=== PATIENT | female | born 1955 | race Caucasian/White ===

== ENCOUNTER → 2017-09-17 14:27 | Outpatient (CLI) | payer MEDICAID, SELFPAY ==
--- NOTE | 2017-09-17 14:31 | CT_ITS ---
CT Soft Tissue Neck W/O Contrast INDICATION: PATIENT HAS TROUBLE SPEAKING, HOARSENESS, FEELS A CHOKING SENSATION SINCE JUNE. DUE TO ALLERGY NO IV CONTRAST WAS USED COMPARISON: None TECHNIQUE: Axial CT imaging of the soft tissues of the neck without contrast. Coronal and sagittal reformatted images. Radiation dose optimization technique applied. FINDINGS: Contrast was not given due to patient's contrast allergy. The study is limited due to the lack of IV contrast. There is evidence of retropharyngeal location of the common carotid arteries and bifurcations, and mild arteriosclerotic plaque is noted at the left carotid bifurcation. The epiglottis, aryepiglottic folds and vocal cords appear normal and symmetric. The parapharyngeal fat is clear. There is no evidence of bulky lymphadenopathy. Parotid glands and submandibular glands are normal and symmetric. Thyroid gland is normal in size. A 5 mm cystic nodule is seen in the left lobe of the thyroid. Mild centrilobular emphysematous changes are noted at the lung apices with small bullae on the right. There is mild mucosal thickening in the maxillary sinuses, the paranasal sinuses and mastoid air cells are otherwise clear. The orbital contents are normal and symmetric. CT/Soft Tissue Neck without Contr IMPRESSION: Limited study due to the lack of contrast. No evidence of abnormal mass or cervical cervical lymphadenopathy. Retropharyngeal course of the common carotid arteries and carotid bifurcations, normal variation. Mild maxillary sinus disease. at 0056 Reported and signed by: Ceci Stack MD Electronically Signed: Ceci Stack MD at 23:54 EST Tel , Service support ,
== END ==
PROVIDERS: Family Provider Internal Medicine; PCP Internal Medicine; Visit Provider Otolaryngology
DX: R49.0 Dysphonia (principal)
CPT/HCPCS: 70490

== ENCOUNTER → 2017-11-16 07:55 | Outpatient (CLI) | payer MEDICAID, SELFPAY | PROVIDERS: Family Provider Internal Medicine; PCP Internal Medicine; Visit Provider Otolaryngology | DX: Z01.818 Encounter for other preprocedural examination (principal) ==

== ENCOUNTER → 2018-08-20 09:40 | Outpatient (CLI) | payer MEDICARE, SELFPAY ==
--- NOTE | 2018-08-20 09:49 | CT_ITS ---
STUDY: CT RIGHT SHOULDER REASON FOR EXAM: Female, 63 years old. Right shoulder strain and pain. RADIATION DOSAGE (If Supplied By Facility): CTDIvol = ( 24.37 ) mGy, DLP = ( 403.54 ) mGycm TECHNIQUE: The patient was scanned in a multi detector CT scanner. High resolution transaxial imaging was performed with the administration of intra-articular contrast material. Sagittal and coronal images were reconstructed. Individualized dose optimization techniques were used for this CT. COMPARISON: Comparison is made with prior shoulder arthrogram done earlier in the day. FINDINGS: There is moderate osteoarthritis, with moderate articular joint space narrowing and moderate osteoarthritic spurring. Normal glenoid rim, neck and visualized scapula. Normal humeral head, neck and tuberosities. Normal coracoid process. Normal visualized lateral clavicle. Normal acromioclavicular articulation. There is a Type II morphology (curved), with a neutral orientation. Normal visualized muscles and soft tissue structures. CT/Extremity Upper WITH Contrast IMPRESSION: Moderate degree of osteoarthritis of the glenohumeral joint. Electronically Signed: Kahlil Potter MD at 10:34 EST , Service support ,
--- NOTE | 2018-08-20 10:00 | RAD_ITS ---
CLINICAL HISTORY: Female, 63 years old. Chronic right shoulder pain. PROCEDURE: ARTHROGRAM - RIGHT SHOULDER. CONSENT: The procedure as well as the benefits and possible complications including infection and bleeding were explained to the patient. Informed consent was obtained. FLUOROSCOPY TIME (if supplied): (0:30) minutes/seconds. 4 images were obtained. Injection Information: 10 cc of dilute MRI contrast. Number of images obtained: 4 TECHNIQUE: (All elements of maximal sterile barrier technique followed, including US elements as applicable) The patient was in the supine position. The overlying skin was prepped and draped in the usual sterile fashion. Following local anesthetic application and under direct fluoroscopic guidance, a 22-gauge spinal needle was placed into the shoulder joint. 2 cc of [id number]-300 was injected for confirmation. Following this, 10 cc of dilute MRI contrast was injected. The patient tolerated the procedure well. A CT scan will follow. RAD/Arthrogram Shoulder IMPRESSION: Successful right shoulder arthrogram for CT imaging. Electronically Signed: Kahlil Potter MD at 11:55 EST , Service support ,
== END ==
PROVIDERS: Family Provider Family Medicine; PCP Family Medicine; Referring Provider Specialist; Visit Provider Specialist
DX: S46.011A Strain of muscle(s) and tendon(s) of the rotator cuff of right shoulder, initial encounter (principal); X58.XXXA Exposure to other specified factors, initial encounter; Y93.9 Activity, unspecified; Y92.9 Unspecified place or not applicable; Y99.9 Unspecified external cause status
CPT/HCPCS: 23350; 73040; 73201; A9577; Q9967

== ENCOUNTER 2019-02-07 10:10 | Observation (INO) | payer MEDICARE, MEDICAID, SELFPAY ==
[2019-02-07] VITALS (9 sets, daily range): BP systolic 100–118; BP diastolic 60–97; PULSE 79–98; RESP 18–20; TEMP 36.5–37.2; O2SAT 91–97; BMI 33.0; BMI 36.2; BMI 36.3
--- NOTE | 2019-02-07 10:13 | CT_ITS ---
STUDY: CT BRAIN WITHOUT CONTRAST REASON FOR EXAM: Female, 63 years old. Increased confusion following a recent fall. RADIATION DOSAGE (If Supplied By Facility): CTDIvol = ( 44.96 ) mGy, DLP = ( 1502.65 ) mGycm TECHNIQUE: Transaxial CT imaging of the brain was performed without administration of intravenous contrast material. Individualized dose optimization techniques were used for this CT. COMPARISON: Comparison is made with prior study dated November 02, 2016. FINDINGS: Normal soft tissue structures. Normal calvarium. There is mild cerebral atrophy with widening of the extra-axial spaces and ventricular dilatation. There are areas of decreased attenuation within the white matter tracts of the supratentorial brain, consistent with microvascular disease changes. Normal basal ganglia and thalami. Normal brainstem. Normal cerebellum. There is no intracranial hemorrhage. There are no findings of an acute ischemic infarction. Air-fluid levels in both maxillary sinuses in keeping with acute sinusitis. CT/Brain/Head without Contrast IMPRESSION: Chronic involutional changes of the brain. Bilateral maxillary sinusitis. Electronically Signed: Kahlil Potter, at 12:21 EDT , Service support ,
--- NOTE | 2019-02-07 10:13 | EKG12_ITS ---
Test Reason : GENERAL ILLNESS Blood Pressure : / mmHG Vent. Rate : 094 BPM Atrial Rate : 094 BPM P-R Int : 168 ms QRS Dur : 154 ms QT Int : 400 ms P-R-T Axes : 035 222 026 degrees QTc Int : 500 ms Atrial-sensed ventricular-paced rhythm Abnormal ECG Confirmed by LIZ CAMPBELL, TAMI ([id number]), editorial assistant SANFORD RHODES ([id number]) on 02/09/2019 11:32:57 AM Referred By: Angy Roper Confirmed By:TAMI HILL MD
--- NOTE | 2019-02-07 10:16 | CT_ITS ---
STUDY: CT CERVICAL SPINE WITHOUT CONTRAST REASON FOR EXAM: Female, 63 years old. Increasing confusion following a fall. RADIATION DOSAGE (If Supplied By Facility): CTDIvol = ( 44.96 ) mGy, DLP = ( 1502.65 ) mGycm TECHNIQUE: High resolution transaxial imaging was performed without contrast material. Sagittal and coronal images were reconstructed. Individualized dose optimization techniques were used for this CT. COMPARISON: Comparison is made with prior study dated November 02, 2016. FINDINGS: Normal craniovertebral junction. Normal anterior atlantoaxial articulation. Normal odontoid process. Normal cervical lordosis. Normal vertebral bodies and posterior osseous elements. C2-3: Normal endplates. Normal disc height and morphology. Normal central canal and intervertebral neuroforamina. C3-4: Normal endplates. Normal disc height and morphology. Normal central canal and intervertebral neuroforamina. C4-5: Moderate degree of disc space narrowing with spondylosis. Uncovertebral arthrosis. Bilateral neural foraminal stenosis worse on the left side. C5-6: Mild degree of disc space narrowing. Uncovertebral arthrosis. No significant stenosis seen. C6-7: Moderate degree of disc space narrowing with spondylosis and uncovertebral arthrosis. Mild degree of bilateral neural foraminal stenosis. C7-T1: Normal endplates. Normal disc height and morphology. Normal central canal and intervertebral neuroforamina. Calcified plaque at the left carotid bifurcation. Bullous changes in the right lung apex. CT/Spine Cervical without Contras IMPRESSION: Multilevel degenerative changes, as described above. Electronically Signed: Kahlil Potter, at 12:33 EDT , Service support ,
--- NOTE | 2019-02-07 10:18 | ED.DCSUM_ITS ---
History of Present Illness Chief Complaint: General Illness Informant: Patient, Family, Twisting Department End Finder Onset: Weeks - 3 Context: Gradual Onset Timing: Continuous Current Severity: Moderate Maximum Severity: Moderate Narrative: Patient presents with feeling off balance and weak. Apparently this is been ongoing for 2 to 3 weeks since she sustained a mechanical fall and hit her head. She did not see a physician at that time. She has no chest pain fever or chills she does say she has been more off balance but it got somewhat worse today. She also has generalized weakness. She denies any chest pain or shortness of breath. She denies any vision changes. She denies any confusion and she is oriented x3 however she does not remember the president. She is here with her was at the bedside and confirms this. Past Medical History - Allergies and Home Meds Allergies/Adverse Reactions: Allergies acetaminophen [From Darvocet-N] Allergy (Verified 10/16/17 10:57) Unknown amoxicillin Allergy (Verified 02/07/19 10:15) Unknown codeine Allergy (Verified 02/07/19 10:15) Unknown fentanyl Allergy (Verified 02/07/19 10:15) Unknown hydrocodone bitartrate [From Vicodin] Allergy (Verified 02/07/19 10:15) Unknown Iodinated Contrast- Oral and IV Dye [Iodinated Contrast Media - IV Dye] Allergy (Verified 02/07/19 10:15) Unknown meperidine [From Demerol] Allergy (Verified 02/07/19 10:15) Unknown morphine Allergy (Verified 02/07/19 10:15) Unknown oxycodone HCl [From Percocet] Allergy (Verified 02/07/19 10:15) Unknown Penicillins [PCN] Allergy (Verified 02/07/19 10:15) Hives promethazine HCl [From Phenergan] Allergy (Verified 02/07/19 10:15) Unknown propoxyphene napsylate [From Darvocet-N] Allergy (Verified 02/07/19 10:15) Unknown Prior records reviewed: Yes Past Medical History: - - Hypertension Lives: Spouse/ Significant Other Smoking Status: Current every day smoker Review of Systems General: Denies: Chills, Fever Eyes: Denies: Visual changes - bilaterally, Diplopia ENT: Denies: Rhinorrhea, Sore throat Cardiovascular: Denies: Chest pain, Palpitations Respiratory: Denies: Dyspnea, Cough, Dyspnea on exertion Gastrointestinal: Denies: Abdominal pain, Nausea, Vomiting, Diarrhea, Melena, Hematochezia Genitourinary: Denies: Dysuria, Hematuria, Frequency Musculoskeletal: Reports: Neck pain. Denies: Back pain, Extremity Pain Skin: Denies: Rash, Wounds Neurological: Reports: Weakness. Denies: Headache, Numbness Physical Exam Vital Signs/Narrative: Vital Signs Temp Pulse Resp BP Pulse Ox 02/07/19 10:11 98.9 F 98 18 100/64 97 Inital Vital Signs reviewed: Yes General: Well nourished, Well developed Head: Normocephalic, Atraumatic Eyes: Perrl. Negative for: Pale conjunctiva ENT: Moist mucous membranes. Negative for: Nasal congestion Neck: - - diffuse c-spine tenderness Cardiovascular: Regular rate, Regular rhythm Respiratory: No distress Abdomen: Soft, Nontender Back: Nontender, Normal Inspection. Negative for: Spinal tenderness Extremities: Nontender, No edema Skin: Normal color, No rash Neurological: Alert, Oriented x3, Normal Strength, Inattentive, - - She is refusing to ambulate says she is too much off balance, however when I did a cerebellar test, she had some ataxia on the right Psychological: Normal affect Diagnostic/Tx/Re-eval - Medical Decision Making Patient has an unremarkable work-up. This may be a postconcussive syndrome, and may be ataxia secondary to vascular issue, regardless she is too weak and off- balance to go home, I discussed this with patient, spouse and her mother they would like her to get admitted. She will need rehab. Admit stable condition ED Disposition - Plan for ED Patient: Disposition: Psychiatric Hospital or Unit Diagnosis: Head injury, Ataxia
--- NOTE | 2019-02-07 10:20 | RAD_ITS ---
STUDY: X-RAY CHEST REASON FOR EXAM: Female, 63 years old. Weakness. TECHNIQUE: Single AP portable view of the chest. COMPARISON: Comparison is made with prior examination February 27, 2017. FINDINGS: EKG electrodes are seen. Stable mild increased interstitial markings at the lung bases suggestive of scarring. There is no demonstrated pleural abnormality. A left-sided dual-chamber pacemaker is seen. Normal mediastinum and terry. Normal visualized pulmonary arteries. There is atherosclerotic calcification of the aortic arch with tortuosity. Normal visualized thoracic spine. Normal visualized ribs, clavicles, and shoulders. There is no demonstrated abnormality of the visualized soft tissue structures of the upper abdomen. RAD/Chest 1 View (Portable) IMPRESSION: Stable mild increased interstitial markings at the lung bases suggestive of scarring. Electronically Signed: Kahlil Potter, at 11:01 EDT , Service support ,
--- NOTE | 2019-02-07 10:49 | ED.RN ---
5 ATTEMPTS UNSUCCESSFUL BY [address] ROE AWARE
[2019-02-07 11:32] LABS: Absolute Neutrophil Count 8.1 X10^3/uL (2.0-7.7); Basophil# 0.01 X10^3/uL; Basophil% 0.1 % (0-1); Eosinophil# 0.58 X10^3/uL; Eosinophils% 5.6 % (0-5); Hematocrit 36.9 % (37-47); Hemoglobin 12.4 g/dl (12.0-15.0); Lymphocyte % 7.7 % (19-41); Mean Corp Hgb Conc 33.6 g/gl (32-36); Mean Corpuscular Hgb 28.1 pg (27.0-32.0); Mean Corpuscular Volume 83.7 fL (81-99); Mean Platelet Vol. 10.2 fl (6.2-12.0); Monocyte# 0.91 X10^3/uL; Monocyte% 8.7 % (0-10); Neutrophil # 8.09 X10^3/uL (2.7-7.7); Neutrophil % 77.3 % (47-70); Platelet Count 243 K/mm3 (150-450); RBC Distribution Width CV 15.2 % (11.6-14.6); RBC Distribution Width SD 45.8 fl (35.1-43.9); Red Blood Count 4.41 M/mm3 (4.2-5.4); White Blood Count 10.5 K/mm3 (4.4-11.0)
[2019-02-07 11:33] LABS: POSITIVE COUNT NO; POSITIVE DIFFERENTIAL NO; POSITIVE MORPHOLOGY NO
[2019-02-07 11:49] LABS: ALB/GLOB Ratio 0.6 RATIO (0.9-2.4); AST(SGOT) 19 U/L (15-37); Alanine Aminotransfer ALT/SGPT 26 U/L (13-56); Albumin, Serum 2.4 g/dL (3.2-5.0); Alkaline Phosphatase 236 U/L (45-117); Anion Gap 8 (5-15); BUN 36 mg/dL (7-18); BUN/Creat Ratio 21.4 RATIO (10-20); Chloride 103 mmol/L (98-107); Creatinine, Serum 1.68 mg/dL (0.55-1.02); EST Glomerular Filtration Rate 32 mL/min (>60); Est Glom Filt Rate - Afr Amer 39 mL/min (>60); Globulin 3.7 g/dL (2.2-4.2); Glucose 102 mg/dL (74-106); Potassium 4.7 mmol/L (3.5-5.1); Protein, Total 6.1 g/dL (6.4-8.2); Sodium Level 134 mmol/L (136-145)
--- NOTE | 2019-02-07 11:57 | ED.RN ---
PT MADE AWARE THAT URINE SPECIMEN WAS NEEDED, REFUSED QUICK CATHETER.
[2019-02-07] MEDS: Ondansetron 4 MG/2 ML Vial IM (12:38)
--- NOTE | 2019-02-07 12:45 | ED.RN ---
PT COMPLAINS OF NAUSEA DR. ROE MADE AWARE.
--- NOTE | 2019-02-07 14:32 | CASEMGMT ---
RN CM Assessment Introduced role of RN CM to patient, patient Boyfriend Severiano, Patient Mother, Dtr, and Sister at bedside.? Patient is alert, oriented and able?to participate in RN CM Assessment. ?Care providers, pharmacy, and demographics verified. Presentation: Feeling off balance & weak x2-3 weeks since sustained Mechanical fall & hit head Re-Admit: No Barriers/Issues: None PCP: Dr Box in [place] Specialists: Cardio- [place], cannot remember name. Pain Management Dr Licona in [facility] Preferred Pharmacy: [facility] Insurance: [employer] Benefit:?Yes LNOK: Dtr Khalida Mares LW/HPOA: No, Declines Offered Information Living Arrangements:? Lives with Boyfriend in a Lower Level Apartment. 2 steps to enter. ADL?s: Independent with ambulation and ADLs Transportation: Patient drives, Boyfriend Severiano to transport on DC DME: None HHC: None SNF: None Goal: Home, does not think will have any needs. Patient is not Homebound, states Ok with Outpatient PT if recommended. Denies any questions/concerns or issues. DC PLAN: Home with possible Outpatient PT. DRE Lopez
--- NOTE | 2019-02-07 14:51 | ED.RN ---
called DIRECTORY COMPILER Natasha, to inform that ED physician ok'd for pt to have PICC line but may be better to have Dr. Roper order so the order can be seen as an inpatient. also informed that pt refused st cath and urine sample still needs obtained.
--- NOTE | 2019-02-07 15:46 | HP.PCM_ITS ---
History of Present Illness Date of Admission: 02/07/19 Chief Complaint: weakness, mechanical fall The patient is a 63 year old F with a past medical history as listed. She was admitted through the ED on 02/07/2019 with a complaint of generalized weakness and not feeling well as well as imbalance with walking. Patient states she fell about 2 weeks ago and hit the back of her head. She is apparently noted that she was unsteady on her feet and this gradually worsened until today. Says she felt like she was working as a drunk person. She also felt incredibly weak and just lethargic and so decided to come into the ED today. She did not have any lightheadedness or dizziness, denied any palpitations or chest pain or abdominal pain. She did admit to diarrhea and vomiting was started when she go to the ED and says she had had about 3 episodes of diarrhea so far. Review of systems is otherwise negative. Vitals were unremarkable in the ED and labs were significant for creatinine of 1.68 with sodium of 134. ALP was elevated at 236 initial troponin was negative. CBC was unremarkable. CT brain showed chronic involutional changes of the brain and bilateral maxillary sinusitis. CT cervical spine showed multilevel degenerative changes. She says she is due to follow up with her ENT surgeon to remove a lymph node in her neck. She has been admitted to be managed for general debility due to mechanical fall. [] Past Medical History Allergies acetaminophen [From Darvocet-N] Allergy (Verified 10/16/17 10:57) Unknown amoxicillin Allergy (Verified 02/07/19 10:15) Unknown codeine Allergy (Verified 02/07/19 10:15) Unknown fentanyl Allergy (Verified 02/07/19 10:15) Unknown hydrocodone bitartrate [From Vicodin] Allergy (Verified 02/07/19 10:15) Unknown Iodinated Contrast- Oral and IV Dye [Iodinated Contrast Media - IV Dye] Allergy (Verified 02/07/19 10:15) Unknown meperidine [From Demerol] Allergy (Verified 02/07/19 10:15) Unknown morphine Allergy (Verified 02/07/19 10:15) Unknown oxycodone HCl [From Percocet] Allergy (Verified 02/07/19 10:15) Unknown Penicillins [PCN] Allergy (Verified 02/07/19 10:15) Hives promethazine HCl [From Phenergan] Allergy (Verified 02/07/19 10:15) Unknown propoxyphene napsylate [From Darvocet-N] Allergy (Verified 02/07/19 10:15) Unknown Home Medications: Ambulatory Orders Medication Instructions Recorded Aspirin [Aspirin, Baby] 81 mg PO DAILY@0800 05/29/15 Carvedilol [Coreg] 25 mg PO DAILY 05/29/15 Dicyclomine HCl [Bentyl] 20 mg PO ACHS 05/29/15 Esomeprazole Mag Trihydrate 20 mg PO DAILY 05/29/15 [Nexium] Famotidine [Pepcid] 40 mg PO DAILY 05/29/15 Fluticasone/Salmeterol [Advair 1 puff INHALATION BID 05/29/15 250/50 Mcg Diskus] Lisinopril [Zestril] 5 mg PO DAILY 05/29/15 Lorazepam [Ativan] 0.5 mg PO DAILY PRN PRN 05/29/15 Ondansetron [Zofran Odt] 4 mg PO Q8H PRN PRN 05/29/15 Verapamil [Calan] 120 mg PO DAILY 05/29/15 Gabapentin [Neurontin] 400 mg PO QHS 11/02/16 Hydromorphone HCl [Dilaudid] 12 mg PO QHS 11/02/16 Clopidogrel Bisulfate [Plavix] 75 mg PO DAILY 10/16/17 Hydromorphone HCl [Dilaudid] 8 mg PO PRN PRN 10/16/17 Meloxicam [Mobic] 15 mg PO DAILY 10/16/17 Psychiatric History: No pertinent psych hx Lives: Spouse/ Significant Other Smoking Status: Current every day smoker Tobacco Use: Cigarettes - *Family History Maternal History Items: No pertinent history Paternal History Items: No pertinent history Review of Systems Constitutional: Reports: Malaise, Weakness, Fatigue. Denies: Chills, Fever, Weight Change Eyes: Denies: Blurred vision, Vision Change HEENT: Denies: Head Aches, Sinus Congestion, Sinus Drainage Cardiovascular: Denies: Chest Pain, Palpitations Respiratory: Denies: Cough, Shortness of Breath, Shortness of breath at rest, Shortness of breath upon exertion, Sputum production Gastrointestinal: Denies: Abdominal Pain, Nausea, Vomiting Genitourinary: Denies: Dysuria Musculoskeletal: Denies: Joint Pain, Joint Tenderness Skin: Denies: Rash, Wounds Neurological: Reports: Balance problems. Denies: Double vision, Slurred speech, Difficulty swallowing, Focal weakness, Headaches, Numbness, Tingling Psychiatric: Denies: Anxiety, Depression, Homicidal Ideations, Suicidal Ideations Hematologic/ Lymphatic: Denies: Easy Bruising, Easy Bleeding VTE Information - Inpt Only VTE Present on Admission: No VTE Pharm Prophylaxis ordered?: Yes Patient Problems: Active and Suspected Problems Head injury (Acute) Ataxia (Acute) - Physical Exam General: Alert, Oriented x3, Cooperative, Lethargic, - - tearful HEENT: Atraumatic, PERRLA, EOMI, Normocephalic Oral: Moist Mucosa Neck: Supple, No JVD, Negative Carotid Bruits Lungs: Clear to auscultation, Normal air movement Cardiovascular: Regular rate, Regular Rhythm, Normal S1, Normal S2, No murmurs Abdomen: Bowel Sounds Present, Soft, Non Tender Extremities: No clubbing, No cyanosis, No edema, Capillary Refill Less than 3 Seconds Skin: No rashes, No breakdown Musculoskeletal: No Tenderness to Palpation of Joints or Extremities Lymphatic: No Cervical, Supraclavicular, or Inguinal Adenopathy Neurological: Cranial nerves II-XII grossly intact, Neuro grossly intact, Motor Exam 5/5 strength throughout Psych/Mental Status: Normal Affect, Appropriate, Alert and oriented to time, place, person, mood and affect Vital Signs Temp Pulse Resp BP Pulse Ox 98.9 F 84 20 H 113/97 H 95 02/07/19 15:08 02/07/19 15:25 02/07/19 15:08 02/07/19 15:08 02/07/19 15:08 Oxygen Delivery Method Nasal Cannula Weight: 185 lb 10.067 oz Body Mass Index (BMI) 36.2 Laboratory Tests Past 24 Hrs 02/07/19 02/07/19 02/07/19 11:26 11:26 11:26 WBC 10.5 RBC 4.41 Hgb 12.4 Hct 36.9 L MCV 83.7 MCH 28.1 MCHC 33.6 RDW 15.2 H RDW Differential 45.8 H Plt Count 243 MPV 10.2 Immature Gran % (Auto) 0.600 Neut % (Auto) 77.3 H Lymph % (Auto) 7.7 L Zavala % (Auto) 8.7 Eos % (Auto) 5.6 H Baso % (Auto) 0.1 Absolute Neuts (auto) 8.1 H Absolute Lymphs (auto) 0.80 L Total Counted Not Reportable Sodium 134 L Potassium 4.7 Chloride 103 Carbon Dioxide 23.0 Anion Gap 8 BUN 36 H Creatinine 1.68 H Estim Creat Clear Calc 26.40 Est GFR (MDRD) Af Amer 39 L Est GFR (MDRD) Non-Af 32 L BUN/Creatinine Ratio 21.4 H Glucose 102 Calcium 9.0 Total Bilirubin 0.80 AST 19 ALT 26 Alkaline Phosphatase 236 H Troponin I < 0.015 Total Protein 6.1 L Albumin 2.4 L Globulin 3.7 Albumin/Globulin Ratio 0.6 L Ethyl Alcohol 4.[address] 02/07/19 10:13 IMPRESSION: Chronic involutional changes of the brain. Bilateral maxillary sinusitis. Electronically Signed: Kahlil Potter, at 12:21 EDT , Service support , Cervical Spine CT 02/07/19 10:16 IMPRESSION: Multilevel degenerative changes, as described above. Electronically Signed: Kahlil Potter, at 12:33 EDT , Service support , Chest X-Ray 02/07/19 10:20 IMPRESSION: Stable mild increased interstitial markings at the lung bases suggestive of scarring. Electronically Signed: Kahlil Potter, at 11:01 EDT , Service support , Assessment/Plan All Active Problems Head injury (Acute) Ataxia (Acute) 63-year-old female admitted with a complaint of generalized feeling of unwellness and imbalance and walking. 1. Debillity due to mechanical fall * says she fell about 2 weeks ago and has had symptoms since then. * describes her gait as like that of a drunk person: * admit to PCu with telemetry * CT brain was negative for any acute intracranial pathology * CT cervical spine just showed chronic degenerative changes * MRI of the brain to assess the cerebellar region * PT/OT consult * fall precautions * check orthostatics * consult neurology * 2. Acute gastroenteritis: has been having diarrhea and vomiting since admission. Hydrate with IVF. Clear liquid diet for now. Check C Diff. IV zofran prn 3. FARZANA: Cr is 1.68, baseline is ~ 0.8. Likely prerenal due to acute gastroenteritis. Hydrate with IV fluid and monitor. 4. Mild hyponatremia: Sodium is 134. Will resolve with hydration. 5. History of CAD: On aspirin and carvedilol as well as statin. 6. Hypertension: On lisinopril and carvedilol 7. History of COPD: On Advair and breathing treatments. 6. DVT prophylaxis: Lovenox 7. GI prophylaxis; PPI Code Visit Inpatient E&M: 34780 Init Hosp L3
--- NOTE | 2019-02-07 15:49 | CON.PCM_ITS ---
Problem List (1) Fall Status: Acute (2) Balance problem Status: Acute Reason for Consult Date of Consultation: 02/07/19 Reason for Consultation: Falls, balance issues History of Present Illness: The patient is a 63 year old F PMH HTN, DM, CAD s/p stents, s/p AICD, COPD, tobacco abuse admitted with falls and balance issues. Per patient she has been having balance issues for about 2 to 3 weeks. Per she had a mechanical fall and hit her head about 2 to 3 weeks ago when she got up in the middle of the night. Per she had tripped and fallen. Denies any loss of consci ousness. She also feels that she has generalized weakness, per she has been tired a lot and sleeps a lot. Per patient she has neck pain, low back pain with radicular symptoms. Denies any burning pain in the feet or paresthesias. Patient denies any focal motor weakness, sensory loss, headache, dizziness or visual disturbances or speech disturbances. CT head done on admission did not show anything acute. CT C-spine reported to show multilevel degenerative changes, C4-C5 with moderate disc space narrowing with spondylosis, bilateral neural foraminal stenosis worse on the left side, C5-C6 mild degree of disc space narrowing, C6-C7 moderate degree of disc space narrowing with spondylosis and mild degree of bilateral neuroforaminal stenosis. [] Past Medical History Allergies acetaminophen [From Darvocet-N] Allergy (Verified 10/16/17 10:57) Unknown amoxicillin Allergy (Verified 02/07/19 10:15) Unknown codeine Allergy (Verified 02/07/19 10:15) Unknown fentanyl Allergy (Verified 02/07/19 10:15) Unknown hydrocodone bitartrate [From Vicodin] Allergy (Verified 02/07/19 10:15) Unknown Iodinated Contrast- Oral and IV Dye [Iodinated Contrast Media - IV Dye] Allergy (Verified 02/07/19 10:15) Unknown meperidine [From Demerol] Allergy (Verified 02/07/19 10:15) Unknown morphine Allergy (Verified 02/07/19 10:15) Unknown oxycodone HCl [From Percocet] Allergy (Verified 02/07/19 10:15) Unknown Penicillins [PCN] Allergy (Verified 02/07/19 10:15) Hives promethazine HCl [From Phenergan] Allergy (Verified 02/07/19 10:15) Unknown propoxyphene napsylate [From Darvocet-N] Allergy (Verified 02/07/19 10:15) Unknown Home Medications: Ambulatory Orders Medication Instructions Recorded Aspirin [Aspirin, Baby] 81 mg PO DAILY@0800 05/29/15 Carvedilol [Coreg] 25 mg PO DAILY 05/29/15 Dicyclomine HCl [Bentyl] 20 mg PO ACHS 05/29/15 Esomeprazole Mag Trihydrate 20 mg PO DAILY 05/29/15 [Nexium] Famotidine [Pepcid] 40 mg PO DAILY 05/29/15 Fluticasone/Salmeterol [Advair 1 puff INHALATION BID 05/29/15 250/50 Mcg Diskus] Lisinopril [Zestril] 5 mg PO DAILY 05/29/15 Lorazepam [Ativan] 0.5 mg PO DAILY PRN PRN 05/29/15 Ondansetron [Zofran Odt] 4 mg PO Q8H PRN PRN 05/29/15 Verapamil [Calan] 120 mg PO DAILY 05/29/15 Gabapentin [Neurontin] 400 mg PO QHS 11/02/16 Hydromorphone HCl [Dilaudid] 12 mg PO QHS 11/02/16 Clopidogrel Bisulfate [Plavix] 75 mg PO DAILY 10/16/17 Hydromorphone HCl [Dilaudid] 8 mg PO PRN PRN 10/16/17 Meloxicam [Mobic] 15 mg PO DAILY 10/16/17 Lives: Spouse/ Significant Other Smoking Status: Current every day smoker Tobacco Use: Cigarettes Alcohol: None Drugs: None - *Family History Maternal History Items: No pertinent history Paternal History Items: No pertinent history Review of Systems Constitutional: Reports: - - Complete ROS negative except as documented in HPI Patient Problems: Active and Suspected Problems Head injury (Acute) Ataxia (Acute) Fall (Acute) Balance problem (Acute) - Physical Exam General: Alert HEENT: Normocephalic Neck: Supple Lungs: Normal air movement Cardiovascular: Normal S1, Normal S2 Abdomen: Bowel Sounds Present Extremities: No cyanosis Neurological: - - consious, drowsy, CN 2-12 grossly intact, power 5/5 all 4 extremities, asterexis present, no sensory loss, no cerebellar signs, Reflexes + B/L B/S/T/K/A, gait deferred, no NR Psych/Mental Status: Normal Affect Vital Signs Temp Pulse Resp BP Pulse Ox 98.9 F 84 20 H 113/97 H 95 02/07/19 15:08 02/07/19 15:25 02/07/19 15:08 02/07/19 15:08 02/07/19 15:08 Oxygen Delivery Method Nasal Cannula Weight: 84.2 kg Body Mass Index (BMI) 36.2 Laboratory Tests Past 24 Hrs 02/07/19 02/07/19 02/07/19 11:26 11:26 11:26 WBC 10.5 RBC 4.41 Hgb 12.4 Hct 36.9 L MCV 83.7 MCH 28.1 MCHC 33.6 RDW 15.2 H RDW Differential 45.8 H Plt Count 243 MPV 10.2 Immature Gran % (Auto) 0.600 Neut % (Auto) 77.3 H Lymph % (Auto) 7.7 L [place] % (Auto) 8.7 Eos % (Auto) 5.6 H Baso % (Auto) 0.1 Absolute Neuts (auto) 8.1 H Absolute Lymphs (auto) 0.80 L Total Counted Not Reportable Sodium 134 L Potassium 4.7 Chloride 103 Carbon Dioxide 23.0 Anion Gap 8 BUN 36 H Creatinine 1.68 H Estim Creat Clear Calc 26.40 Est GFR (MDRD) Af Amer 39 L Est GFR (MDRD) Non-Af 32 L BUN/Creatinine Ratio 21.4 H Glucose 102 Calcium 9.0 Total Bilirubin 0.80 AST 19 ALT 26 Alkaline Phosphatase 236 H Troponin I < 0.015 Total Protein 6.1 L Albumin 2.4 L Globulin 3.7 Albumin/Globulin Ratio 0.6 L Ethyl Alcohol 4.0 Assessment/Plan All Active Problems Head injury (Acute) Ataxia (Acute) Fall (Acute) Balance problem (Acute) The patient is a 63 year old F PMH HTN, DM, CAD s/p stents, s/p AICD, COPD, tobacco abuse admitted with falls and balance issues. Per patient she has been having balance issues for about 2 to 3 weeks. Per she had a mechanical fall and hit her head about 2 to 3 weeks ago when she got up in the middle of the night. Per she had tripped and fallen. Denies any loss of consciousness. She also feels that she has generalized weakness, per she has been tired a lot and sleeps a lot. Per patient she has neck pain, low back pain with radicular symptoms. Denies any burning pain in the feet or paresthesias. Patient denies any focal motor weakness, sensory loss, headache, dizziness or visual disturbances or speech disturbances. CT head done on admission did not show anything acute. CT C-spine reported to show multilevel degenerative changes, C4-C5 with moderate disc space narrowing with spondylosis, bilateral neural foraminal stenosis worse on the left side, C5-C6 mild degree of disc space narrowing, C6-C7 moderate degree of disc space narrowing with spondylosis and mild degree of bilateral neuroforaminal stenosis. Impression Fall, balance issues Cervical stenosis Metabolic encephalopathy Plan -Vitamin B12, TSH, BENJI/ANCA/RF/SSA/SSB antibody, SPEP with ZOE and UPEP with ZOE, UA and CK total -EMG/NCS both lower extremities as outpatient -CT L-spine without contrast -Cannot check MRI due to defibrillator. -Spine surgery consult -PT/OT -Fall precautions -Further medical management per hospitalist team -GI/DVT prophylaxis -Follow-up with neurology as outpatient -Please call with questions if any -Thank you for allowing us to participate in patient's care and management Code Visit Inpatient E&M: [id number] Init Hosp L3
--- NOTE | 2019-02-07 15:58 | CT_ITS ---
STUDY: CT LUMBAR SPINE WITHOUT CONTRAST REASON FOR EXAM: Female, 63 years old. Fall. Bowel and soft tissues. RADIATION DOSAGE (If Supplied By Facility): CTDIvol = ( 27.57 ) mGy, DLP = ( 980.53 ) mGycm TECHNIQUE: The patient was scanned in a multi detector CT scanner. High resolution transaxial imaging was performed. Images were obtained from T12 to normal sacrum. Sagittal and coronal images were reconstructed. Individualized dose optimization techniques were used for this CT. COMPARISON: Lumbar spine, November 02, 2016. FINDINGS: Normal lumbar lordosis. The mild dextroscoliosis with a convexity at the L3-3 disc level. Normal alignment of the lumbar vertebral bodies. Normal vertebrae of the lumbar spine. There is no evidence of acute fracture or loss of vertebral axial height. L1-2: Minimal endplate spondylosis. Normal disc height and morphology. Normal bilateral facet joints. Normal central canal and bilateral lateral recesses. Normal bilateral intervertebral neural foramina. L2-3: Normal endplates. Diffusely bulging annulus. Mild degenerative changes of the bilateral facet joints. Normal central canal and bilateral lateral recesses. Normal bilateral intervertebral neural foramina. L3-4: Normal endplates. Diffusely bulging annulus. Facet joint degenerative change with ligamentum flavum hypertrophy.. Normal central canal and bilateral lateral recesses. Normal bilateral intervertebral neural foramina. L4-5: Minimal endplate spondylosis. There is a diffusely bulging was question of a minimal left paracentral disc herniation. There is facet joint degenerative change. Normal central canal. Slight impingement on the left lateral recess. Normal bilateral intervertebral neural foramina. L5-S1: Endplate spondylosis with mildly bulging annulus and loss of disc height.. Mild facet joint degenerative change. Normal central canal and bilateral lateral recesses. Narrowing of the left intervertebral neural foramen with questionable impingement on the exiting nerve root. There is atherosclerotic changes of the abdominal aorta and iliac arteries. Status post hysterectomy. CT/Spine Lumbar without Contrast IMPRESSION: Degenerative changes of the lumbar spine without fracture or dislocation. Electronically Signed: Tobi Riddle DO at 16:51 EDT Tel [phone], Service support ,
[2019-02-07 16:48] LABS: CPK Total, Creatine Kinase 162 U/L (26-192)
[2019-02-07 16:52] LABS: Hemoglobin A1c 6.7 % (4.2-6.3)
[2019-02-07] MEDS: 0.9% Normal Saline 1,000 ML 120 ML IV (16:52)
[2019-02-07] MEDS: Ondansetron 4 MG/2 ML Vial IV (17:01)
[2019-02-07] MEDS: Dicyclomine 10 MG Capsule 20 MG PO ×2 (17:01→22:19)
[2019-02-07 17:16] LABS: Rheumatoid Factor < 10.0 IU/mL (<15); Thyroid Stim Hormone (TSH) 0.43 uIU/mL (0.358-3.74)
[2019-02-07] MEDS: Albuterol 2.5 MG/3 ML VIAL.NEB. INHALATION (18:43)
[2019-02-07] MEDS: Budesonide Respules 0.5 MG/2 ML AMPUL.NEB. INHALATION (18:43)
[2019-02-07 18:58] LABS: Vitamin B12 509 pg/mL (211-911)
[2019-02-07 20:22] LABS: Mucous, Urine 0 SEEN /hpf (<or=2+)
[2019-02-07 20:36] LABS: Color, Urine Yellow (Yellow); Glucose, Dipstick Normal (Normal); Ketone-Dipstick 5 mg/dl (Negative); Leukocyte Esterase-Dipstick 500 /ul (Negative); Nitrite-Dipstick Negative (Negative); Occult Blood-Urine 250 /ul (Negative); Protein-Dipstick 30 mg/dl (Negative); Specific Gravity, Urine 1.015 (1.002-1.030); Urine Bilirubin Dipstick Negative (Negative); Urine Clarity Cloudy (Clear); Urine Urobilinogen 1 mg/dl (Normal)
[2019-02-07 20:45] LABS: Bacteria 2+ /hpf (None Seen); Red Blood Cells-Urine 25-50 SEEN /hpf (0-5); Squamous Epithelial Cells - UA 10-25 SEEN /hpf (5-10); White Blood Cells >100 SEEN /hpf (0-5)
[2019-02-07] MEDS: HYDROmorphone 2 MG TABLET 6 MG PO (22:18)
[2019-02-07] MEDS: Gabapentin 400 MG Capsule PO (22:19)
[2019-02-07] MEDS: Carvedilol 6.25 MG Tablet PO (22:19)
[2019-02-07] MEDS: LORazepam 0.5 MG Tablet PO (22:28)
[2019-02-08] VITALS (13 sets, daily range): BP systolic 92–120; BP diastolic 54–72; PULSE 52–87; RESP 16–18; TEMP 36.5–36.9; O2SAT 92–93
[2019-02-08] MEDS: 0.9% Normal Saline 1,000 ML 120 ML IV (00:30)
[2019-02-08] MEDS: 0.9% NaCl Midline IV Flush IV (04:20)
[2019-02-08 04:27] LABS: Bacteria 0 SEEN /hpf (None Seen); Mucous, Urine 0 SEEN /hpf (<or=2+)
[2019-02-08 04:29] LABS: Color, Urine Yellow (Yellow); Glucose, Dipstick Normal (Normal); Ketone-Dipstick 5 mg/dl (Negative); Leukocyte Esterase-Dipstick 500 /ul (Negative); Nitrite-Dipstick Negative (Negative); Occult Blood-Urine 50 /ul (Negative); Protein-Dipstick 15 mg/dl (Negative); Urine Bilirubin Dipstick Negative (Negative); Urine Clarity Sl. Cloudy (Clear); Urine Urobilinogen 1 mg/dl (Normal)
[2019-02-08 04:41] LABS: Red Blood Cells-Urine 25-50 SEEN /hpf (0-5); Squamous Epithelial Cells - UA 10-25 SEEN /hpf (5-10); White Blood Cells 50-100 SEEN /hpf (0-5)
[2019-02-08 05:41] LABS: Absolute Lymphocyte Count 0.84 X10^3/ul (0.83-4.51); Absolute Neutrophil Count 5.8 X10^3/uL (2.0-7.7); Basophil# 0.01 X10^3/uL; Basophil% 0.1 % (0-1); Eosinophil# 0.65 X10^3/uL; Eosinophils% 7.9 % (0-5); Hematocrit 35.5 % (37-47); Hemoglobin 11.5 g/dl (12.0-15.0); Lymphocyte # 0.84 X10^3/ul (4.0); Lymphocyte % 10.2 % (19-41); Mean Corp Hgb Conc 32.4 g/gl (32-36); Mean Corpuscular Hgb 27.3 pg (27.0-32.0); Mean Corpuscular Volume 84.1 fL (81-99); Mean Platelet Vol. 10.5 fl (6.2-12.0); Monocyte# 0.89 X10^3/uL; Monocyte% 10.8 % (0-10); Neutrophil % 70.3 % (47-70); Platelet Count 242 K/mm3 (150-450); RBC Distribution Width SD 45.8 fl (35.1-43.9); Red Blood Count 4.22 M/mm3 (4.2-5.4); White Blood Count 8.3 K/mm3 (4.4-11.0)
[2019-02-08 05:43] LABS: POSITIVE COUNT NO; POSITIVE DIFFERENTIAL NO; POSITIVE MORPHOLOGY NO
[2019-02-08 05:59] LABS: Anion Gap 7 (5-15); BUN 26 mg/dL (7-18); BUN/Creat Ratio 24.1 RATIO (10-20); Calcium,Total 8.9 mg/dL (8.5-10.1); Chloride 107 mmol/L (98-107); Creatinine, Serum 1.08 mg/dL (0.55-1.02); EST Glomerular Filtration Rate 54 mL/min (>60); Est Glom Filt Rate - Afr Amer 65 mL/min (>60); Glucose 95 mg/dL (74-106); Potassium 4.2 mmol/L (3.5-5.1); Sodium Level 138 mmol/L (136-145)
[2019-02-08] MEDS: Dicyclomine 10 MG Capsule 20 MG PO ×4 (06:11→21:36)
--- NOTE | 2019-02-08 07:21 | PCM.PROGNOTE ---
Patient Problems: Active and Suspected Problems Head injury (Acute) Ataxia (Acute) Fall (Acute) Balance problem (Acute) Subjective: The patient is a 63-year-old female with a past medical history of tobacco dependence, coronary artery disease, chronic pain syndrome with narcotic dependence, diabetes mellitus type 2, hypertension, COPD, status post AICD placement, and obesity who presented to the emergency department complaining of diarrhea associated with lethargy and generalized weakness for the preceding 1 to 2 weeks which started after a fall. CT scan of the brain showed involutional changes and bilateral maxillary sinusitis. CT of the cervical spine showed multilevel degenerative changes. CBC was unremarkable. Sodium was mildly decreased at 134 and the BUN was 36 with a creatinine of 1.6. Creatinine in October 2016 was 0.89. Hemoglobin A1c was 6.7. B12 is 509 and the TSH is 0.43. A UA had greater than 100 WBCs per high-power field with 10-25 WBCs and 2+ bacteria. No urine culture was sent. She was admitted to the hospital for generalized debility due to mechanical fall and gastroenteritis, FARZANA likely due to dehydration and mild hyponatremia. Afebrile since admission Vital signs are stable She is 93 to 94% saturated on room air. White blood cell count today is 8.3 with 70% neutrophils. Hemoglobin is 11.5 and platelets are within normal limits. Sodium is up to 138 following hydration and the BUN is down to 26 with a creatinine of 1.08, down from 1.68 at admission. She was seen in consultation by Dr. Waldrop regarding balance issues. He recommended repeat CT of her brain in 24 hours to look for any ischemic changes. He also recommended B12, TSH, BENJI/ANCA/rheumatoid factor/SSA/SSB antibodies. Serum protein electrophoresis with immunofixation and UPEP with immunofixation, UA and total CK. EMG/NCS as an outpatient of the lower extremities. CT scan of the lumbar spine without contrast. CT of the lumbar spine was reported as degenerative changes without fracture or dislocation. There is slight impingement on the left lateral recess at L4-5. There is narrowing of the left intervertebral neural foramen with questionable impingement on the exiting nerve root at L5-S1. There is no central canal stenosis throughout the lumbosacral spine. She tells me she has had 3-4 bowel movements today but the nurses aide tells me that she had one very small bowel movement and another bowel movement that they were able to collect for microbiology. The stool lactoferrin is negative. The enteric pathogen panel was negative. Patient had a repeat UA done via straight cath and had 0 WBCs and 0 bacteria. The pyuria present at admission was likely secondary to contamination. She is not exactly being straight with me when I ask her why she takes dilaudid......her response was because the pain management doctor prescribes it......she tells me that her pain management doctor is Dr. Hernandez but, review of her [facility] report does not show that she has ever had any prescriptions from Dr. Hernandez. - Physical Exam General: Alert, Cooperative, Well developed, Well nourished, - - mumbles and is difficult to understand HEENT: Atraumatic, PERRLA, EOMI, Normocephalic Neck: Supple, No JVD, Negative Carotid Bruits Lungs: Clear to auscultation, Diminished Cardiovascular: Regular rate, Regular Rhythm, Normal S1, Normal S2, No murmurs, No rub noted, No Gallop Abdomen: Bowel Sounds Present, Soft, Non Tender, Non-Distended, Obese Extremities: No clubbing, No cyanosis, No edema Skin: No rashes, No breakdown Musculoskeletal: No Muscle Wasting Neurological: Cranial nerves II-XII grossly intact, Neuro grossly intact, - - negative romberg Psych/Mental Status: - - gruff Vital Signs Temp Pulse Resp BP Pulse Ox 98.3 F 76 18 110/54 L 93 02/08/19 02:56 02/08/19 03:12 02/08/19 02:56 02/08/19 02:56 02/08/19 02:56 Oxygen Delivery Method Room Air Weight: 185 lb 10.067 oz Body Mass Index (BMI) 36.2 Intake and Output for Last 24 Hours 02/06/19 02/07/19 02/08/19 23:59 23:59 23:59 Intake Total 1174 / 1174 687 / 687 Balance 1174 / 1174 687 / 687 Laboratory Tests Past 24 Hrs 02/07/19 02/07/19 02/07/19 11:26 11:26 11:26 WBC 10.5 RBC 4.41 Hgb 12.4 Hct 36.9 L MCV 83.7 MCH 28.1 MCHC 33.6 RDW 15.2 H RDW Differential 45.8 H Plt Count 243 MPV 10.2 Immature Gran % (Auto) 0.600 Neut % (Auto) 77.3 H Lymph % (Auto) 7.7 L Winston % (Auto) 8.7 Eos % (Auto) 5.6 H Baso % (Auto) 0.1 Absolute Neuts (auto) 8.1 H Absolute Lymphs (auto) 0.80 L Total Counted Not Reportable Sodium 134 L Potassium 4.7 Chloride 103 Carbon Dioxide 23.0 Anion Gap 8 BUN 36 H Creatinine 1.68 H Estim Creat Clear Calc 26.40 Est GFR (MDRD) Af Amer 39 L Est GFR (MDRD) Non-Af 32 L BUN/Creatinine Ratio 21.4 H Glucose 102 Hemoglobin A1c Calcium 9.0 Total Bilirubin 0.80 AST 19 ALT 26 Alkaline Phosphatase 236 H Total Creatine Kinase Troponin I < 0.015 Total Protein 6.1 L Total Protein (PEP) Albumin 2.4 L Globulin 3.7 Albumin/Globulin Ratio 0.6 L Vitamin B12 TSH Urine Color Urine Clarity Urine pH Ur Specific [place] Urine Protein Urine Glucose (UA) Urine Ketones Urine Occult Blood Urine Nitrite Urine Bilirubin Urine Urobilinogen Ur Leukocyte Esterase Urine RBC Urine WBC Ur Squamous Epith Cells Urine Bacteria Urine Mucus Ethyl Alcohol 4.0 IgG IgA IgM Albumin (ZOE) Albumin/Globulin (ZOE) Lhqaj-8-Vxnnakklo ZOE Zltjh-9-Avietptrw ZOE Beta-Globulins (ZOE) Gamma Globulins (ZOE) ZOE M-Ron Rheumatoid Factor BENJI Screen c-ANCA Antibody p-ANCA Antibody MAXIMO-1 Antibody SS-A/Ro IgG Antibody SS-B/La IgG Antibody Sm (Box) Antibody SUPERVISOR WOUND Antibody Scl-70 Scleroderma Ab Double Strand DNA Ab Anti-ss DNA IgG Ab Centromere B Antibody 02/07/19 02/07/19 02/07/19 11:26 11:26 11:26 WBC RBC Hgb Hct MCV MCH MCHC RDW RDW Differential Plt Count MPV Immature Gran % (Auto) Neut % (Auto) Lymph % (Auto) [place] % (Auto) Eos % (Auto) Baso % (Auto) Absolute Neuts (auto) Absolute Lymphs (auto) Total Counted Sodium Potassium Chloride Carbon Dioxide Anion Gap BUN Creatinine Estim Creat Clear Calc Est GFR (MDRD) Af Amer Est GFR (MDRD) Non-Af BUN/Creatinine Ratio Glucose Hemoglobin A1c 6.7 H Calcium Total Bilirubin AST ALT Alkaline Phosphatase Total Creatine Kinase Troponin I Total Protein Total Protein (PEP) Albumin Globulin Albumin/Globulin Ratio Vitamin B12 509 TSH 0.43 Urine Color Urine Clarity Urine pH Ur Specific [place] Urine Protein Urine Glucose (UA) Urine Ketones Urine Occult Blood Urine Nitrite Urine Bilirubin Urine Urobilinogen Ur Leukocyte Esterase Urine RBC Urine WBC Ur Squamous Epith Cells Urine Bacteria Urine Mucus Ethyl Alcohol IgG IgA IgM Albumin (ZOE) Albumin/Globulin (ZOE) Vhqmv-4-Ckwoxgirh ZOE Ebwoo-5-Djmwalfci ZOE Beta-Globulins (ZOE) Gamma Globulins (ZOE) ZOE M-Ron Rheumatoid Factor < 10.0 BENJI Screen c-ANCA Antibody p-ANCA Antibody MAXIMO-1 Antibody SS-A/Ro IgG Antibody SS-B/La IgG Antibody Sm (Box) Antibody SUPERVISOR WOUND Antibody Scl-70 Scleroderma Ab Double Strand DNA Ab Anti-ss DNA IgG Ab Centromere B Antibody 02/07/19 02/07/19 02/07/19 11:26 11:26 20:00 WBC RBC Hgb Hct MCV MCH MCHC RDW RDW Differential Plt Count MPV Immature Gran % (Auto) Neut % (Auto) Lymph % (Auto) Winston % (Auto) Eos % (Auto) Baso % (Auto) Absolute Neuts (auto) Absolute Lymphs (auto) Total Counted Sodium Potassium Chloride Carbon Dioxide Anion Gap BUN Creatinine Estim Creat Clear Calc Est GFR (MDRD) Af Amer Est GFR (MDRD) Non-Af BUN/Creatinine Ratio Glucose Hemoglobin A1c Calcium Total Bilirubin AST ALT Alkaline Phosphatase Total Creatine Kinase 162 Troponin I Total Protein Total Protein (PEP) Albumin Globulin Albumin/Globulin Ratio Vitamin B12 TSH Urine Color Yellow Urine Clarity Cloudy Urine pH 6.0 Ur Specific [place] 1.015 Urine Protein 30 H Urine Glucose (UA) Normal Urine Ketones 5 H Urine Occult Blood 250 H Urine Nitrite Negative Urine Bilirubin Negative Urine Urobilinogen 1 H Ur Leukocyte Esterase 500 H Urine RBC 25-50 SEEN Urine WBC >100 SEEN Ur Squamous Epith Cells 10-25 SEEN Urine Bacteria 2+ Urine Mucus 0 SEEN Ethyl Alcohol IgG IgA IgM Albumin (ZOE) Albumin/Globulin (ZOE) Lsigh-3-Ootujvzvk ZOE Axoof-2-Pzwnfbmgu ZOE Beta-Globulins (ZOE) Gamma Globulins (ZOE) ZOE M-Ron Rheumatoid Factor BENJI Screen Pending c-ANCA Antibody p-ANCA Antibody MAXIMO-1 Antibody Pending SS-A/Ro IgG Antibody Pending SS-B/La IgG Antibody Pending Sm (Box) Antibody Pending SUPERVISOR WOUND Antibody Pending Scl-70 Scleroderma Ab Pending Double Strand DNA Ab Pending Anti-ss DNA IgG Ab Centromere B Antibody Pending 02/08/19 02/08/19 02/08/19 04:00 05:18 05:18 WBC 8.3 RBC 4.22 Hgb 11.5 L Hct 35.5 L MCV 84.1 MCH 27.3 MCHC 32.4 RDW 15.0 H RDW Differential 45.8 H Plt Count 242 MPV 10.5 Immature Gran % (Auto) 0.700 Neut % (Auto) 70.3 H Lymph % (Auto) 10.2 L [place] % (Auto) 10.8 H Eos % (Auto) 7.9 H Baso % (Auto) 0.1 Absolute Neuts (auto) 5.8 Absolute Lymphs (auto) 0.84 Total Counted Not Reportable Sodium 138 Potassium 4.2 Chloride 107 Carbon Dioxide 24.0 Anion Gap 7 BUN 26 H Creatinine 1.08 H Estim Creat Clear Calc 37.30 Est GFR (MDRD) Af Amer 65 Est GFR (MDRD) Non-Af 54 L BUN/Creatinine Ratio 24.1 H Glucose 95 Hemoglobin A1c Calcium 8.9 Total Bilirubin AST ALT Alkaline Phosphatase Total Creatine Kinase Troponin I Total Protein Total Protein (PEP) Albumin Globulin Albumin/Globulin Ratio Vitamin B12 TSH Urine Color Yellow Urine Clarity Sl. Cloudy Urine pH 6.0 Ur Specific [place] 1.020 Urine Protein 15 H Urine Glucose (UA) Normal Urine Ketones 5 H Urine Occult Blood 50 H Urine Nitrite Negative Urine Bilirubin Negative Urine Urobilinogen 1 H Ur Leukocyte Esterase 500 H Urine RBC 25-50 SEEN Urine WBC 50-100 SEEN Ur Squamous Epith Cells 10-25 SEEN Urine Bacteria 0 SEEN Urine Mucus 0 SEEN Ethyl Alcohol IgG IgA IgM Albumin (ZOE) Albumin/Globulin (ZOE) Aoghl-1-Fvgllumdw ZOE Nqhxu-6-Luinhjahn ZOE Beta-Globulins (ZOE) Gamma Globulins (ZOE) ZOE M-Ron Rheumatoid Factor BENJI Screen c-ANCA Antibody p-ANCA Antibody MAXIMO-1 Antibody SS-A/Ro IgG Antibody SS-B/La IgG Antibody Sm (Box) Antibody SUPERVISOR WOUND Antibody Scl-70 Scleroderma Ab Double Strand DNA Ab Anti-ss DNA IgG Ab Centromere B Antibody 02/08/19 05:18 WBC RBC Hgb Hct MCV MCH MCHC RDW RDW Differential Plt Count MPV Immature Gran % (Auto) Neut % (Auto) Lymph % (Auto) [place] % (Auto) Eos % (Auto) Baso % (Auto) Absolute Neuts (auto) Absolute Lymphs (auto) Total Counted Sodium Potassium Chloride Carbon Dioxide Anion Gap BUN Creatinine Estim Creat Clear Calc Est GFR (MDRD) Af Amer Est GFR (MDRD) Non-Af BUN/Creatinine Ratio Glucose Hemoglobin A1c Calcium Total Bilirubin AST ALT Alkaline Phosphatase Total Creatine Kinase Troponin I Total Protein Total Protein (PEP) Pending Albumin Globulin Albumin/Globulin Ratio Vitamin B12 TSH Urine Color Urine Clarity Urine pH Ur Specific [place] Urine Protein Urine Glucose (UA) Urine Ketones Urine Occult Blood Urine Nitrite Urine Bilirubin Urine Urobilinogen Ur Leukocyte Esterase Urine RBC Urine WBC Ur Squamous Epith Cells Urine Bacteria Urine Mucus Ethyl Alcohol IgG Pending IgA Pending IgM Pending Albumin (ZOE) Pending Albumin/Globulin (ZOE) Pending Gtkjp-0-Sgfjrwtxe ZOE Pending Kjwst-0-Swfxnseox ZOE Pending Beta-Globulins (ZOE) Pending Gamma Globulins (ZOE) Pending ZOE M-Ron Pending Rheumatoid Factor BENJI Screen c-ANCA Antibody Pending p-ANCA Antibody Pending MAXIMO-1 Antibody SS-A/Ro IgG Antibody SS-B/La IgG Antibody Sm (Box) Antibody SUPERVISOR WOUND Antibody Scl-70 Scleroderma Ab Double Strand DNA Ab Anti-ss DNA IgG Ab Pending Centromere B Antibody Medical Necessity - Tobacco Use Smoking Status: Current every day smoker Tobacco Use: Cigarettes Assessment/Plan All Active Problems Head injury (Acute) Ataxia (Acute) Fall (Acute) Balance problem (Acute) Impressions 1. Gait instability with a fall 2 weeks prior to admission to the ED - normal non-contrasted CT of the brain - negative romberg 2. N/V/diarrhea - 3 episodes in the ED W/U is negative 3. questionable UTI- has pyuria but, afebrile and the WBC and diff are unremarkable. Clean catch? 4. CAD - says she sees a e commerce marketing manager but can not recall the name 5. Tobacco dependence 6. Chronic narcotic dependence 7. Acute kidney injury-likely secondary to dehydration 8. Mild hyponatremia 9. Hypertension 10. COPD 11. History of AICD placement-patient states this was necessary because some doctor at this hospital pushed a clot into her heart. Has not had a recent ECHO at this hospital. straight cath and get a repeat UA and a culture - 0 WBC's on straight cath UA - no need for antibiotics enteric pathogen panel and fecal leuko's - both negative Repeat the CTB this afternoon check a lipid panel, mag and phos consult the slag motor operator for education for new diagnosis of DM II Recheck BMP in the a.m. Continue IV fluids Continue clear liquid diet Pt c/o not being able to walk but walked 15 ft with PT with only contact guard assist. C/O total body pain..... told the PT she has fibromyalgia but did not mention to Dr. Roper or myself. I am very suspicious of her drug use........she is evasive and can not tell me the name of her e commerce marketing manager....she tells me that she sees Dr. Hernandez for pain manangemen but she has had no prescriptions from Dr. Hernandez. Will not be prescribing any narcotics for her at [place]. She recently had RX's filled for hydromorphone 8 mg tablets, #30, and hydromorphone ER 12 mg tablets, #30 on 01/25/[address] Perri Corcoran in [facility]. She gets prescriptions for gabapentin from Dr. Jace Scott and she also had prescriptions for hydromorphone and hydromorphone ER from Dr. Jace Scott in September and October of this year. Dr. Scott is in [place]. In Aug she got narcotics from Dr.Jennifer Woody in [place]. She is also had prescriptions for lorazepam from a few different doctors. I am suspicious she has a problem with narcotics and has been bouncing around from 1 doctor to another. I really can not find anything concrete wrong with her. Code Visit Inpatient E&M: [id number] Subs Hosp L2
[2019-02-08] MEDS: Aspirin 81 MG TAB.CHEW PO (08:04)
[2019-02-08] MEDS: Meloxicam 15 MG Tablet PO (08:04)
--- NOTE | 2019-02-08 08:06 | NURSING ---
Straight cath @ this time per order to obtain urine sample
[2019-02-08 08:11] LABS: Bacteria 0 SEEN /hpf (None Seen); Mucous, Urine 0 SEEN /hpf (<or=2+); Red Blood Cells-Urine 0 SEEN /hpf (0-5); Squamous Epithelial Cells - UA 0 SEEN /hpf (5-10); White Blood Cells 0 SEEN /hpf (0-5)
[2019-02-08 08:19] LABS: Color, Urine Yellow (Yellow); Glucose, Dipstick Normal (Normal); Ketone-Dipstick Negative (Negative); Leukocyte Esterase-Dipstick Negative /ul (Negative); Nitrite-Dipstick Negative (Negative); Occult Blood-Urine Negative /ul (Negative); Protein-Dipstick Negative (Negative); Specific Gravity, Urine 1.015 (1.002-1.030); Urine Bilirubin Dipstick Negative (Negative); Urine Clarity Clear (Clear); Urine Urobilinogen Normal (Normal)
[2019-02-08] MEDS: Albuterol 2.5 MG/3 ML VIAL.NEB. INHALATION ×2 (08:26→18:41)
[2019-02-08] MEDS: Budesonide Respules 0.5 MG/2 ML AMPUL.NEB. INHALATION ×2 (08:26→18:40)
[2019-02-08 09:30] LABS: Cholesterol 116 mg/dL (200); High Density Lipoprotein 17 mg/dL; Magnesium 1.7 mg/dL (1.6-2.6); Triglycerides 192 mg/dL; Very Low Density Lipoprotein 38 mg/dL (5-40)
[2019-02-08] MEDS: Lisinopril 5 MG Tablet PO (10:16)
[2019-02-08] MEDS: Verapamil 120 MG Tablet PO (10:16)
[2019-02-08] MEDS: Clopidogrel Bisulfate 75 MG Tablet PO (10:16)
[2019-02-08] MEDS: Carvedilol 6.25 MG Tablet PO ×2 (10:16→21:36)
[2019-02-08] MEDS: HYDROmorphone 2 MG TABLET 6 MG PO ×2 (10:16→21:36)
[2019-02-08] MEDS: Pantoprazole Sodium 20 MG Tablet PO (10:16)
[2019-02-08] MEDS: Enoxaparin 30 MG/0.3 ML Syringe SC (10:17)
--- NOTE | 2019-02-08 13:53 | PCM.PN.NEU ---
Patient Problems: Active and Suspected Problems Head injury (Acute) Ataxia (Acute) Fall (Acute) Balance problem (Acute) Subjective: No issues overnight. CT L-spine without contrast reported to show degenerative changes in the lumbar spine, L1-2?minimal endplate spondylosis, L2-L3 diffuse bulging annulus, L3-L4 diffuse bulging annulus, L4-L5 minimal endplate spondylosis, diffusely bulging question minimal left paracentral disc herniation, slight impingement on the left lateral recess L5-S1?endplate spondylosis with mildly bulging annulus and loss of disc height narrowing of the left intervertebral neural foramen with questionable impingement on the exiting nerve root. - Physical Exam General: Alert HEENT: Normocephalic Neck: Supple Lungs: Normal air movement Cardiovascular: Normal S1, Normal S2 Abdomen: Bowel Sounds Present Extremities: No cyanosis Neurological: - - consious, alert, CN 2-12 grossly intact, power 5/5 all 4 extremities, asterexis improved, no sensory loss, no cerebellar signs, Reflexes + B/L B/S/T/K/A, gait deferred, no NR Psych/Mental Status: Normal Affect Vital Signs Temp Pulse Resp BP Pulse Ox 98.4 F 66 16 118/70 93 02/08/19 09:51 02/08/19 13:29 02/08/19 09:51 02/08/19 09:51 02/08/19 09:51 Oxygen Delivery Method Room Air Weight: 84.2 kg Body Mass Index (BMI) 36.2 Intake and Output for Last 24 Hours 02/06/19 02/07/19 02/08/19 23:59 23:59 23:59 Intake Total 1174 / 1174 1187 / 1187 Output Total 200 / 200 Balance 1174 / 1174 987 / 987 Microbiology Past 72 Hours 02/08/19 10:15 Stool Lactoferrin - Final Stool Laboratory Tests Past 24 Hrs 02/07/19 02/07/19 02/07/19 11:26 11:26 11:26 WBC RBC Hgb Hct MCV MCH MCHC RDW RDW Differential Plt Count MPV Immature Gran % (Auto) Neut % (Auto) Lymph % (Auto) [place] % (Auto) Eos % (Auto) Baso % (Auto) Absolute Neuts (auto) Absolute Lymphs (auto) Total Counted Sodium Potassium Chloride Carbon Dioxide Anion Gap BUN Creatinine Estim Creat Clear Calc Est GFR (MDRD) Af Amer Est GFR (MDRD) Non-Af BUN/Creatinine Ratio Glucose Hemoglobin A1c 6.7 H Calcium Phosphorus Magnesium Total Creatine Kinase Total Protein (PEP) Triglycerides Cholesterol LDL Cholesterol VLDL Cholesterol HDL Cholesterol Vitamin B12 509 TSH 0.43 Urine Color Urine Clarity Urine pH Ur Specific [place] Urine Protein Urine Glucose (UA) Urine Ketones Urine Occult Blood Urine Nitrite Urine Bilirubin Urine Urobilinogen Ur Leukocyte Esterase Urine RBC Urine WBC Ur Squamous Epith Cells Urine Bacteria Urine Mucus IgG IgA IgM Albumin (ZOE) Albumin/Globulin (ZOE) Kyarr-4-Lytktxtoz ZOE Beawn-8-Oajxbouse ZOE Beta-Globulins (ZOE) Gamma Globulins (ZOE) ZOE M-Ron Rheumatoid Factor < 10.0 BENJI Screen c-ANCA Antibody p-ANCA Antibody MAXIMO-1 Antibody SS-A/Ro IgG Antibody SS-B/La IgG Antibody Sm (Box) Antibody INTERPRETIVE PROGRAM COORDINATOR Antibody Scl-70 Scleroderma Ab Double Strand DNA Ab Anti-ss DNA IgG Ab Centromere B Antibody 02/07/19 02/07/19 02/07/19 11:26 11:26 20:00 WBC RBC Hgb Hct MCV MCH MCHC RDW RDW Differential Plt Count MPV Immature Gran % (Auto) Neut % (Auto) Lymph % (Auto) [place] % (Auto) Eos % (Auto) Baso % (Auto) Absolute Neuts (auto) Absolute Lymphs (auto) Total Counted Sodium Potassium Chloride Carbon Dioxide Anion Gap BUN Creatinine Estim Creat Clear Calc Est GFR (MDRD) Af Amer Est GFR (MDRD) Non-Af BUN/Creatinine Ratio Glucose Hemoglobin A1c Calcium Phosphorus Magnesium Total Creatine Kinase 162 Total Protein (PEP) Triglycerides Cholesterol LDL Cholesterol VLDL Cholesterol HDL Cholesterol Vitamin B12 TSH Urine Color Yellow Urine Clarity Cloudy Urine pH 6.0 Ur Specific [place] 1.015 Urine Protein 30 H Urine Glucose (UA) Normal Urine Ketones 5 H Urine Occult Blood 250 H Urine Nitrite Negative Urine Bilirubin Negative Urine Urobilinogen 1 H Ur Leukocyte Esterase 500 H Urine RBC 25-50 SEEN Urine WBC >100 SEEN Ur Squamous Epith Cells 10-25 SEEN Urine Bacteria 2+ Urine Mucus 0 SEEN IgG IgA IgM Albumin (ZOE) Albumin/Globulin (ZOE) Fwlkh-0-Hssxdfjxn ZOE Egtub-0-Jykhdutus ZOE Beta-Globulins (ZOE) Gamma Globulins (ZOE) ZOE M-Ron Rheumatoid Factor BENJI Screen Pending c-ANCA Antibody p-ANCA Antibody MAXIMO-1 Antibody Pending SS-A/Ro IgG Antibody Pending SS-B/La IgG Antibody Pending Sm (Box) Antibody Pending INTERPRETIVE PROGRAM COORDINATOR Antibody Pending Scl-70 Scleroderma Ab Pending Double Strand DNA Ab Pending Anti-ss DNA IgG Ab Centromere B Antibody Pending 02/08/19 02/08/19 02/08/19 04:00 05:18 05:18 WBC 8.3 RBC 4.22 Hgb 11.5 L Hct 35.5 L MCV 84.1 MCH 27.3 MCHC 32.4 RDW 15.0 H RDW Differential 45.8 H Plt Count 242 MPV 10.5 Immature Gran % (Auto) 0.700 Neut % (Auto) 70.3 H Lymph % (Auto) 10.2 L [place] % (Auto) 10.8 H Eos % (Auto) 7.9 H Baso % (Auto) 0.1 Absolute Neuts (auto) 5.8 Absolute Lymphs (auto) 0.84 Total Counted Not Reportable Sodium 138 Potassium 4.2 Chloride 107 Carbon Dioxide 24.0 Anion Gap 7 BUN 26 H Creatinine 1.08 H Estim Creat Clear Calc 37.30 Est GFR (MDRD) Af Amer 65 Est GFR (MDRD) Non-Af 54 L BUN/Creatinine Ratio 24.1 H Glucose 95 Hemoglobin A1c Calcium 8.9 Phosphorus Magnesium Total Creatine Kinase Total Protein (PEP) Triglycerides Cholesterol LDL Cholesterol VLDL Cholesterol HDL Cholesterol Vitamin B12 TSH Urine Color Yellow Urine Clarity Sl. Cloudy Urine pH 6.0 Ur Specific [place] 1.020 Urine Protein 15 H Urine Glucose (UA) Normal Urine Ketones 5 H Urine Occult Blood 50 H Urine Nitrite Negative Urine Bilirubin Negative Urine Urobilinogen 1 H Ur Leukocyte Esterase 500 H Urine RBC 25-50 SEEN Urine WBC 50-100 SEEN Ur Squamous Epith Cells 10-25 SEEN Urine Bacteria 0 SEEN Urine Mucus 0 SEEN IgG IgA IgM Albumin (ZOE) Albumin/Globulin (ZOE) Pidgh-5-Tgqfvyzuy ZOE Jegjr-6-Ytrbgwzug ZOE Beta-Globulins (ZOE) Gamma Globulins (ZOE) ZOE M-Ron Rheumatoid Factor BENJI Screen c-ANCA Antibody p-ANCA Antibody MAXIMO-1 Antibody SS-A/Ro IgG Antibody SS-B/La IgG Antibody Sm (Box) Antibody INTERPRETIVE PROGRAM COORDINATOR Antibody Scl-70 Scleroderma Ab Double Strand DNA Ab Anti-ss DNA IgG Ab Centromere B Antibody 02/08/19 02/08/19 02/08/19 05:18 05:30 07:58 WBC RBC Hgb Hct MCV MCH MCHC RDW RDW Differential Plt Count MPV Immature Gran % (Auto) Neut % (Auto) Lymph % (Auto) [place] % (Auto) Eos % (Auto) Baso % (Auto) Absolute Neuts (auto) Absolute Lymphs (auto) Total Counted Sodium Potassium Chloride Carbon Dioxide Anion Gap BUN Creatinine Estim Creat Clear Calc Est GFR (MDRD) Af Amer Est GFR (MDRD) Non-Af BUN/Creatinine Ratio Glucose Hemoglobin A1c Calcium Phosphorus 3.0 Magnesium 1.7 Total Creatine Kinase Total Protein (PEP) Pending Triglycerides 192 Cholesterol 116 LDL Cholesterol 61 VLDL Cholesterol 38 HDL Cholesterol 17 L Vitamin B12 TSH Urine Color Yellow Urine Clarity Clear Urine pH 6.0 Ur Specific [place] 1.015 Urine Protein Negative Urine Glucose (UA) Normal Urine Ketones Negative Urine Occult Blood Negative Urine Nitrite Negative Urine Bilirubin Negative Urine Urobilinogen Normal Ur Leukocyte Esterase Negative Urine RBC 0 SEEN Urine WBC 0 SEEN Ur Squamous Epith Cells 0 SEEN Urine Bacteria 0 SEEN Urine Mucus 0 SEEN IgG Pending IgA Pending IgM Pending Albumin (ZOE) Pending Albumin/Globulin (ZOE) Pending Unkps-3-Reuclbtza ZOE Pending Bmenf-6-Tlgqkghns ZOE Pending Beta-Globulins (ZOE) Pending Gamma Globulins (ZOE) Pending ZOE M-Ron Pending Rheumatoid Factor BENJI Screen c-ANCA Antibody Pending p-ANCA Antibody Pending MAXIMO-1 Antibody SS-A/Ro IgG Antibody SS-B/La IgG Antibody Sm (Box) Antibody INTERPRETIVE PROGRAM COORDINATOR Antibody Scl-70 Scleroderma Ab Double Strand DNA Ab Anti-ss DNA IgG Ab Pending Centromere B Antibody Medical Necessity - Tobacco Use Smoking Status: Current every day smoker Tobacco Use: Cigarettes Assessment/Plan All Active Problems Head injury (Acute) Ataxia (Acute) Fall (Acute) Balance problem (Acute) The patient is a 63 year old F PMH HTN, DM, CAD s/p stents, s/p AICD, COPD, tobacco abuse admitted with falls and balance issues. Per patient she has been having balance issues for about 2 to 3 weeks. Per she had a mechanical fall and hit her head about 2 to 3 weeks ago when she got up in the middle of the night. Per she had tripped and fallen. Denies any loss of consciousness. She also feels that she has generalized weakness, per she has been tired a lot and sleeps a lot. Per patient she has neck pain, low back pain with radicular symptoms. Denies any burning pain in the feet or paresthesias. Patient denies any focal motor weakness, sensory loss, headache, dizziness or visual disturbances or speech disturbances. CT head done on admission did not show anything acute. CT C-spine reported to show multilevel degenerative changes, C4-C5 with moderate disc space narrowing with spondylosis, bilateral neural foraminal stenosis worse on the left side, C5-C6 mild degree of disc space narrowing, C6-C7 moderate degree of disc space narrowing with spondylosis and mild degree of bilateral neuroforaminal stenosis. [] Impression Fall, balance issues Cervical stenosis Metabolic encephalopathy Plan -Vitamin B12?509, TSH, BENJI/ANCA/RF/SSA/SSB antibody, SPEP with ZOE and UPEP with ZOE, UA and CK total-p -EMG/NCS both lower extremities as outpatient -CT L-spine report reviewed?degenerative changes, CT C-spine?multilevel degenerative changes, CT head- nothing acute -Cannot check MRI due to defibrillator. -Spine surgery consult -PT/OT -Fall precautions -Further medical management per hospitalist team -GI/DVT prophylaxis -Follow-up with neurology as outpatient -Please call with questions if any -Thank you for allowing us to participate in patient's care and management
[2019-02-08 14:44] LABS: CPK Total, Creatine Kinase 65 U/L (26-192)
--- NOTE | 2019-02-08 15:01 | CHAPLAIN ---
Type of Pastoral Visit _x__ Initial Visit ___ Follow-up Visit ___ On-call Visit ___ General Patient Visit ___ Spiritual Assessment ___ Family Conference ___ Bereavement ___ Rapid Response ___ Code Blue ___ Other (describe below) Pastoral Care Referral From _x__ Patient ___ Family ___ Nurse ___ Physician ___ Dope Heater ___ Vehicle Delivery Worker ___ Other (describe below) Sacrament/Intervention ___ Active listening ___ Anointing ___ Yarsani ___ Bereavement ___ Communion ___ Siomara exploration ___ ___ Life review ___ Prayer ___ Reconciliation ___ Sacrament of Sick ___ Supportive presence ___ Wedding _x__ Other (describe below) Pastoral Comments many family members are in room; offered to return another time and patient readily agreed
--- NOTE | 2019-02-08 16:02 | NURSING ---
rough rice tenderLuis notified that dressing is falling off, she will change tegaderm
--- NOTE | 2019-02-08 19:33 | CT_ITS ---
STUDY: CT BRAIN WITHOUT CONTRAST REASON FOR EXAM: Female, 63 years old. Ataxia RADIATION DOSAGE (If Supplied By Facility): CTDIvol = ( 44.99 ) mGy, DLP = ( 745.49 ) mGycm TECHNIQUE: Transaxial CT imaging of the brain was performed without administration of intravenous contrast material. Individualized dose optimization techniques were used for this CT. COMPARISON: February 07, 2019 FINDINGS: Normal soft tissue structures. Normal calvarium. Normal size ventricles and extra-axial spaces for the patient's age. Normal white matter tracts of the cerebral hemispheres. Normal basal ganglia and thalami. Normal brainstem. Normal cerebellum. There is no intracranial hemorrhage. There are no findings of an acute ischemic infarction. Stable mucosal thickening of the paranasal sinuses. CT/Brain/Head without Contrast IMPRESSION: No acute intracranial pathology or significant interval changes of the brain. Stable paranasal sinus disease. Electronically Signed: Chip Bernal DO at 21:47 EDT Tel [phone], Service support ,
[2019-02-08] MEDS: Gabapentin 400 MG Capsule PO (21:36)
--- NOTE | 2019-02-09 00:25 | NURSING ---
REPORT GIVEN TO Larissa GLASER RN AT THIS TIME.
--- NOTE | 2019-02-09 00:27 | NURSING ---
this RN is now taking over care of this patient at this time
[2019-02-09 03:06] VITALS: PULSE 74
[2019-02-09 03:30] VITALS: BP 106/66; PULSE 79; RESP 17; TEMP 36.9; O2SAT 92
[2019-02-09 05:54] LABS: Anion Gap 7 (5-15); BUN 16 mg/dL (7-18); BUN/Creat Ratio 16.1 RATIO (10-20); Calcium,Total 9.7 mg/dL (8.5-10.1); Chloride 104 mmol/L (98-107); Creatinine, Serum 0.99 mg/dL (0.55-1.02); EST Glomerular Filtration Rate 60 mL/min (>60); Est Glom Filt Rate - Afr Amer 72 mL/min (>60); Estimated Creatinine Clearance 40.69 ml/min; Glucose 85 mg/dL (74-106); Magnesium 1.7 mg/dL (1.6-2.6); Potassium 4.4 mmol/L (3.5-5.1); Sodium Level 139 mmol/L (136-145)
[2019-02-09 06:30] VITALS: PULSE 67
[2019-02-09 06:41] VITALS: PULSE 79; RESP 16; O2SAT 92
[2019-02-09] MEDS: Albuterol 2.5 MG/3 ML VIAL.NEB. INHALATION (06:41)
[2019-02-09] MEDS: Budesonide Respules 0.5 MG/2 ML AMPUL.NEB. INHALATION (06:41)
[2019-02-09] MEDS: Dicyclomine 10 MG Capsule 20 MG PO (06:46)
--- NOTE | 2019-02-09 08:21 | EKG12_ITS ---
Test Reason : CP Blood Pressure : / mmHG Vent. Rate : 081 BPM Atrial Rate : 081 BPM P-R Int : 168 ms QRS Dur : 152 ms QT Int : 420 ms P-R-T Axes : 035 232 039 degrees QTc Int : 487 ms Atrial-sensed ventricular-paced rhythm Biventricular pacemaker detected Abnormal ECG When compared with ECG of 07-FEB-2019 10:25, MANUAL COMPARISON REQUIRED, DATA IS UNCONFIRMED Confirmed by TUNDE CAMPBELL, COLT ([id number]), assistant film editor SANFORD RHODES ([id number]) on 02/11/2019 2:17:06 PM Referred By: Angy Roper Confirmed By:SOPHIA GRIFFITHS MD
[2019-02-09 08:23] VITALS: BP 151/86; PULSE 76; RESP 16; TEMP 36.8; O2SAT 94
[2019-02-09] MEDS: Aspirin 81 MG TAB.CHEW PO (08:27)
[2019-02-09] MEDS: Meloxicam 15 MG Tablet PO (08:27)
--- NOTE | 2019-02-09 09:12 | NURSING ---
This RN talked to the pt's daughter who called in. Informed daughter tests have came back normal and awaiting MD to do rounds this morning. Denies further questions at this time.
--- NOTE | 2019-02-09 09:18 | DCINST_ITS ---
- Discharge Diagnoses Current Active Problems: Current Active and Chronic Problems Head injury (Acute) Ataxia (Acute) Fall (Acute) Balance problem (Acute) You will use the following diet at home:: No restrictions Your food should be the consistency of: Regular Your liquids should be the consistency of: Regular/Thin Discharge Activity: Return to Normal Activity, Use Walker Weight Bearing Status: Full weight bearing Allergies/Adverse Reactions: Allergies acetaminophen [From Darvocet-N] Allergy (Verified 10/16/17 10:57) Unknown amoxicillin Allergy (Verified 02/07/19 10:15) Unknown codeine Allergy (Verified 02/07/19 10:15) Unknown fentanyl Allergy (Verified 02/07/19 10:15) Unknown hydrocodone bitartrate [From Vicodin] Allergy (Verified 02/07/19 10:15) Unknown Iodinated Contrast- Oral and IV Dye [Iodinated Contrast Media - IV Dye] Allergy (Verified 02/07/19 10:15) Unknown meperidine [From Demerol] Allergy (Verified 02/07/19 10:15) Unknown morphine Allergy (Verified 02/07/19 10:15) Unknown oxycodone HCl [From Percocet] Allergy (Verified 02/07/19 10:15) Unknown Penicillins [PCN] Allergy (Verified 02/07/19 10:15) Hives promethazine HCl [From Phenergan] Allergy (Verified 02/07/19 10:15) Unknown propoxyphene napsylate [From Darvocet-N] Allergy (Verified 02/07/19 10:15) Unknown Medications to take at Discharge Aspirin [Aspirin, Baby] 81 mg PO DAILY@0800 05/29/15 Carvedilol [Coreg (Beta Ana)] 25 mg PO DAILY 05/29/15 Dicyclomine HCl [Bentyl] 20 mg PO ACHS 05/29/15 Esomeprazole Mag Trihydrate [Nexium] 20 mg PO DAILY 05/29/15 Famotidine [Pepcid] 40 mg PO DAILY 05/29/15 Fluticasone/Salmeterol [Advair 250/50 Mcg Diskus] 1 puff INHALATION BID 05/29/15 Lisinopril [Zestril] 5 mg PO DAILY 05/29/15 Lorazepam [Ativan] 0.5 mg PO DAILY PRN PRN 05/29/15 Ondansetron [Zofran Odt] 4 mg PO Q8H PRN PRN 05/29/15 Verapamil [Calan] 120 mg PO DAILY 05/29/15 Gabapentin [Neurontin] 400 mg PO QHS 11/02/16 Hydromorphone HCl [Dilaudid] 12 mg PO QHS 11/02/16 Clopidogrel Bisulfate [Plavix] 75 mg PO DAILY 10/16/17 Hydromorphone HCl [Dilaudid] 8 mg PO PRN PRN 10/16/17 Meloxicam [Mobic] 15 mg PO DAILY 10/16/17 Primary Care Physician: Care Physician,No Primary [Primary Care Provider] - Please follow up with your Primary Care Physician in: in 2 weeks Test Results: Test results from this visit will be discussed in further detail at your follow- up appointment, if applicable.
[2019-02-09] MEDS: HYDROmorphone 2 MG TABLET 6 MG PO (09:43)
[2019-02-09] MEDS: Enoxaparin 30 MG/0.3 ML Syringe SC (09:44)
[2019-02-09] MEDS: Ondansetron 4 MG/2 ML Vial IV (09:44)
[2019-02-09] MEDS: Carvedilol 6.25 MG Tablet PO (09:44)
[2019-02-09] MEDS: Verapamil 120 MG Tablet PO (09:45)
[2019-02-09] MEDS: Pantoprazole Sodium 20 MG Tablet PO (09:45)
[2019-02-09] MEDS: Lisinopril 5 MG Tablet PO (09:45)
[2019-02-09] MEDS: 0.9% NaCl Midline IV Flush IV (09:45)
[2019-02-09] MEDS: Clopidogrel Bisulfate 75 MG Tablet PO (09:45)
--- NOTE | 2019-02-09 10:25 | PCM.PN.NEU ---
Patient Problems: Active and Suspected Problems Head injury (Acute) Ataxia (Acute) Fall (Acute) Balance problem (Acute) Subjective: No issues overnight. - Physical Exam General: Alert HEENT: Normocephalic Neck: Supple Lungs: Normal air movement Cardiovascular: Normal S1, Normal S2 Abdomen: Bowel Sounds Present Extremities: No cyanosis Neurological: - - consious, alert, CN 2-12 grossly intact, power 5/5 all 4 extremities, asterexis improved, no sensory loss, no cerebellar signs, Reflexes + B/L B/S/T/K/A, gait deferred, no NR Psych/Mental Status: Normal Affect Vital Signs Temp Pulse Resp BP Pulse Ox 98.2 F 76 16 151/86 H 94 02/09/19 08:23 02/09/19 08:23 02/09/19 08:23 02/09/19 08:23 02/09/19 08:23 Oxygen Delivery Method Room Air Weight: 84.2 kg Body Mass Index (BMI) 36.2 Intake and Output for Last 24 Hours 02/07/19 02/08/19 02/09/19 23:59 23:59 23:59 Intake Total 1174 / 1174 1986 Output Total 200 / 200 300 / 300 Balance 1174 / 1174 1787 / 1787 -270 / -270 Microbiology Past 72 Hours 02/08/19 10:15 Enteric Bacteriology - Final Stool 02/08/19 10:15 Stool Lactoferrin - Final Stool Laboratory Tests Past 24 Hrs 02/08/19 02/09/19 05:30 05:10 Sodium 139 Potassium 4.4 Chloride 104 Carbon Dioxide 28.0 Anion Gap 7 BUN 16 Creatinine 0.99 Estim Creat Clear Calc 40.69 Est GFR (MDRD) Af Amer 72 Est GFR (MDRD) Non-Af 60 BUN/Creatinine Ratio 16.1 Glucose 85 Calcium 9.7 Magnesium 1.7 Total Creatine Kinase 65 Medical Necessity - Tobacco Use Smoking Status: Current every day smoker Tobacco Use: Cigarettes Assessment/Plan All Active Problems Head injury (Acute) Ataxia (Acute) Fall (Acute) Balance problem (Acute) The patient is a 63 year old F PMH HTN, DM, CAD s/p stents, s/p AICD, COPD, tobacco abuse admitted with falls and balance issues. Per patient she has been having balance issues for about 2 to 3 weeks. Per she had a mechanical fall and hit her head about 2 to 3 weeks ago when she got up in the middle of the night. Per she had tripped and fallen. Denies any loss of consciousness. She also feels that she has generalized weakness, per she has been tired a lot and sleeps a lot. Per patient she has neck pain, low back pain with radicular symptoms. Denies any burning pain in the feet or paresthesias. Patient denies any focal motor weakness, sensory loss, headache, dizziness or visual disturbances or speech disturbances. CT head done on admission did not show anything acute. CT C-spine reported to show multilevel degenerative changes, C4-C5 with moderate disc space narrowing with spondylosis, bilateral neural foraminal stenosis worse on the left side, C5-C6 mild degree of disc space narrowing, C6-C7 moderate degree of disc space narrowing with spondylosis and mild degree of bilateral neuroforaminal stenosis. [] Impression Fall, balance issues Cervical stenosis Metabolic encephalopathy Plan -Vitamin B12?509, TSH-0.43, RF < 10, BENJI/ANCA/SSA/SSB antibody-p, SPEP with ZOE and UPEP with ZOE-p, UA- repeat normal and CK total-65 -EMG/NCS both lower extremities as outpatient -CT L-spine report reviewed?degenerative changes, CT C-spine?multilevel degenerative changes, CT head- nothing acute -Cannot check MRI due to defibrillator. -Spine surgery consult -PT/OT -Fall precautions -Further medical management per hospitalist team -GI/DVT prophylaxis -Follow-up with neurology as outpatient in 6 weeks -Please call with questions if any -Thank you for allowing us to participate in patient's care and management
--- NOTE | 2019-02-09 11:44 | CASEMGMT ---
DANITA CM NOTE: Noted PT/OT evals state further therapy is recommended. Pt has already been discharged home. Call placed to pt @ her home. Pt made aware therapy staff is recommending further therapy. Pt states she sees Dr Swati Persaud in [place] and that if she decides she wants to get further therapy that she will talk to Dr Persaud about having this set up. Noted on pt's demographics it states pt has no PCP. Dr Persaud added to demographics at this time. Gini REESN RN CM
[2019-02-09 14:39] LABS: ANTINUCLEAR ANTIBODIES DIRECT Negative (Negative)
--- NOTE | 2019-02-09 17:27 | DS.PCM_ITS ---
Discharge Date and Diagnosis Date of Admission: 02/07/19 Date of Discharge: 02/09/19 - Primary Discharge Diagnosis #1 Gait instability-etiology unknown #2 nausea vomiting and diarrhea-etiology unclear #3 chronic narcotic dependence #4 acute kidney injury #5 degenerative joint disease of the lumbar spine Hospital Course and Treatment Operations: None Procedures: None Summary of Care Provided: The patient is a 63 year old F who was seen in the emergency room at [facility] with a chief complaint of feeling off balance and having weakness. Patient had 3 episodes of diarrhea, nausea and vomiting after she got to the emergency room. Work-up in the emergency room was unremarkable except for an elevated creatinine, patient was placed into observation status on PCU and was seen by PT and OT and neurology. Patient had no more episodes of nausea and vomiting and no episodes of diarrhea after she was in the hospital, she was given IV fluids and her labs were monitored and her creatinine dropped with fluid administration. Imaging studies for stroke were unremarkable, patient did well with PT and OT. On 02/09/2019, patient was seen and examined: On examination she appeared in good health and spirits. Vital signs as documented. Skin warm and dry and without overt rashes. Neck without JVD. Lungs clear. Heart exam notable for regular rhythm, normal sounds and absence of murmurs, rubs or gallops. Abdomen unremarkable and without evidence of organomegaly, masses, or abdominal aortic enlargement. Extremities nonedematous. Neuro: Cranial nerves II through XII are grossly intact, no focal motor deficits were noted, sensation to light touch and pinprick is intact. Psych: Patient is alert and oriented x3, she does not appear anxious or depressed On 02/09/2019, patient was seen and examined and felt to be in stable condition for discharge home Further note: Patient has a past history of narcotics abuse including selling of prescribed Dilaudid, patient did time in skilled nursing for this within the past 10 years. - Physical Exam Vital Signs Temp Pulse Resp BP Pulse Ox 98.2 F 76 16 151/86 H 94 02/09/19 08:23 02/09/19 08:23 02/09/19 08:23 02/09/19 08:23 02/09/19 08:23 Oxygen Delivery Method Room Air Weight: 84.2 kg Body Mass Index (BMI) 36.2 Intake and Output for Last 24 Hours 02/07/19 02/08/19 02/09/19 23:59 23:59 23:59 Intake Total 1174 / 1174 1986 30 / 30 Output Total 200 / 200 300 / 300 Balance 1174 / 1174 1787 / 1787 -270 / -270 Microbiology Past 72 Hours 02/08/19 07:58 Urine Culture - Preliminary Urine Catheter - Catheter Culture exhibits no growth. 02/08/19 10:15 Enteric Bacteriology - Final Stool 02/08/19 10:15 Stool Lactoferrin - Final Stool Laboratory Tests Past 24 Hrs 02/07/19 02/09/19 11:26 05:10 Sodium 139 Potassium 4.4 Chloride 104 Carbon Dioxide 28.0 Anion Gap 7 BUN 16 Creatinine 0.99 Estim Creat Clear Calc 40.69 Est GFR (MDRD) Af Amer 72 Est GFR (MDRD) Non-Af 60 BUN/Creatinine Ratio 16.1 Glucose 85 Calcium 9.7 Magnesium 1.7 BENJI Screen Negative Discharge Activity: Return to Normal Activity, Use Walker Weight Bearing Status: Full weight bearing Home Medications: Medications to take at Discharge Aspirin [Aspirin, Baby] 81 mg PO DAILY@0800 05/29/15 Carvedilol [Coreg (Beta Ana)] 25 mg PO DAILY 05/29/15 Dicyclomine HCl [Bentyl] 20 mg PO ACHS 05/29/15 Esomeprazole Mag Trihydrate [Nexium] 20 mg PO DAILY 05/29/15 Famotidine [Pepcid] 40 mg PO DAILY 05/29/15 Fluticasone/Salmeterol [Advair 250/50 Mcg Diskus] 1 puff INHALATION BID 05/29/15 Lisinopril [Zestril] 5 mg PO DAILY 05/29/15 Lorazepam [Ativan] 0.5 mg PO DAILY PRN PRN 05/29/15 Ondansetron [Zofran Odt] 4 mg PO Q8H PRN PRN 05/29/15 Verapamil [Calan] 120 mg PO DAILY 05/29/15 Gabapentin [Neurontin] 400 mg PO QHS 11/02/16 Hydromorphone HCl [Dilaudid] 12 mg PO QHS 11/02/16 Clopidogrel Bisulfate [Plavix] 75 mg PO DAILY 10/16/17 Hydromorphone HCl [Dilaudid] 8 mg PO PRN PRN 10/16/17 Meloxicam [Mobic] 15 mg PO DAILY 10/16/17 Primary Care Physician: Care Physician,No Primary [NON-STAFF] - Please follow up with your Primary Care Physician in: in 2 weeks Disposition: Home Minutes spent on discharge:: 31 Patient Condition:: Stable Medical Necessity - Tobacco Use Smoking Status: Current every day smoker Tobacco Use: Cigarettes Meaningful Use Info Meaningful Use Diagnoses (Choose all that apply): None applicable Code Visit OBSV E&M: 71402 Observation care discharge
[2019-02-15 09:36] LABS: Albumin 2.3 g/dL (2.9-4.4); Alpha-1-Globulins 0.3 g/dL (0.0-0.4); Alpha-2-Globulins 0.8 g/dL (0.4-1.0); Cytoplasmic Ab (C-ANCA) <1:20 titer (Neg:<1:20); Gamma Globulin 0.9 g/dL (0.4-1.8); Immunoglobulin A 175 mg/dL (87-352); Immunoglobulin G 491 mg/dL (700-1600); Immunoglobulin M 456 mg/dL (26-217); PROEL- TOTAL PROTEIN 5.1 g/dL (6.0-8.5)
[2019-02-15 17:11] LABS: Perinuclear Ab (P-ANCA) <1:20 titer (Neg:<1:20)
== END 2019-02-09 09:18 | disposition home or self-care (01) ==
LOC: ED 14:07 → PCU 14:32
PROVIDERS: Internal Medicine; Psychiatry & Neurology Neurology; Admitting Provider Student in an Organized Health Care Education/Training Program; Emergency Provider Emergency Medicine; Family Provider Family Medicine; PCP Family Medicine; Referring Provider Student in an Organized Health Care Education/Training Program; Visit Provider Internal Medicine
DX: R27.0 Ataxia, unspecified (principal); G93.41 Metabolic encephalopathy; N17.9 Acute kidney failure, unspecified; M47.896 Other spondylosis, lumbar region; F17.210 Nicotine dependence, cigarettes, uncomplicated; I10 Essential (primary) hypertension; E87.1 Hypo-osmolality and hyponatremia; J44.9 Chronic obstructive pulmonary disease, unspecified; M48.02 Spinal stenosis, cervical region; I25.10 Atherosclerotic heart disease of native coronary artery without angina pectoris; G89.4 Chronic pain syndrome; R11.2 Nausea with vomiting, unspecified; R19.7 Diarrhea, unspecified; F11.20 Opioid dependence, uncomplicated; E66.9 Obesity, unspecified; Z79.899 Other long term (current) drug therapy; Z79.82 Long term (current) use of aspirin; Z79.02 Long term (current) use of antithrombotics/antiplatelets; Z79.891 Long term (current) use of opiate analgesic; Z95.810 Presence of automatic (implantable) cardiac defibrillator; Z68.36 Body mass index [BMI] 36.0-36.9, adult; Z71.3 Dietary counseling and surveillance; Z91.81 History of falling
CPT/HCPCS: 36415; 70450; 71045; 72125; 72131; 80048; 80053; 80061; 80320; 81001; 82550; 82607; 82784; 83036; 83630; 83735; 84100; 84165; 84443; 84484; 85025; 86038; 86225; 86226; 86235; 86256; 86334; 86431; 87086; 87506; 93005; 94640; 96361; 96372; 96374; 97162; 97166; 97802; 97803; 99218; 99285; 99406; J7030; A4216; G0378; G0480; J2405

== ENCOUNTER → 2019-02-18 09:05 | Outpatient (CLI) | payer MEDICARE, MEDICAID, SELFPAY ==
[2019-02-07 14:59] VITALS: BMI 36.2
--- NOTE | 2019-02-18 | IMM_PTH ---
PATIENT: JENNY TAYLOR LOC: LAB U#:[id number] AGE/SX: 69/F ROOM: RE02/18/[address]: Dr. Vitaliy Menon MD : 1955 BED: DIS: SPEC #: [id number] RECD: 02/21/19 12:27 STATUS: RUBIO REDar #: [id number] YOLANDA: 02/18/19 00:[address]: Vitaliy Menon DEPT: IMMUNOHISTOCHEMISTRY RECD BY: Kimmy Bartlett ENTERED: 02/21/19 12:28 SP TYPE: IMMUNO OTHR DR: Dr. Elizabeth Persaud, DO Tissues: Skin of neck, NOS Procedures: CK20 (add) CK5-6 (add) CK7 (add) CK8 (add) Pankeratin (initial) P40 (add) PHYSICIAN & INSTITUTION [place] [id number] SPECIMEN INFORMATION: Tissue Source: Left upper neck mass, FNA Clinical Info: Left upper neck mass Specimen Number: [id number] CPT code: 85947, 18261 x5 METHODOLOGY: Deparaffinized sections of prefer/formalin-fixed tissue or PAP/DQ stained slides are incubated with monoclonal/polyclonal antibodies/oligonucleotide probes. Localization is made via biotin free immunoperoxidase method. Appropriate controls are performed and reacted as expected. Results on target cell population are indicated in the following table: RESULTS: ANTIBODY / CLONE RESULT AE1-3 (AE1/AE3/PCK26) negative CK7 (OV-TL12/30) negative CK8 (67bcxcQ83) negative CK20 (KS20.8) negative CK5-6 (D5 & 1684) negative P40 (BC28) negative These tests were developed and their performance characteristics determined by [facility]. They may not have been cleared or approved by the U.S. Food and Drug Administration. The FDA has determined that such clearance or approval is not necessary. INTERPRETATION: Left upper neck mass, fine needle aspiration: - Atypical degenerating epithelioid cells are noted in the background of marked acute inflammation - Immunohistochemistry is non-contributory for definite identification of these cells. This case was reviewed with Dr. Aleman who concurs with the above diagnosis. SJ:ofelia 02/22/19
--- NOTE | 2019-02-18 | ASPOS_PTH ---
PATIENT: JENNY TAYLOR LOC: [facility] U#:[id number] AGE/SX: 69/F ROOM: RE02/18/[address]: Dr. Vitaliy Menon MD : 1955 BED: DIS: SPEC #: [id number] RECD: 02/18/19 09:30 STATUS: RUBIO CHAZ #: [id number] YOLANDA: 02/18/19 00:[address]: Vitaliy Menon DEPT: CYTOLOGY RECD BY: Lizett Morrison ENTERED: 02/18/19 10:39 SP TYPE: ASP HERE OTHR DR: Dr. Elizabeth Persaud, DO Tissues: Neck, NOS Procedures: PAS Fungus (control) Special Stain Group I Surgery Specimen Level IV AFB Stain (control) Cytology Other Fine Needle Asp on Site HEADER OPERATION: FNA left upper neck mass PRE-OP DIAGNOSIS: Left upper neck mass TISSUE SUBMITTED: FNA left upper neck mass DIAGNOSIS CYTOLOGY Left upper neck mass, FNA (cytospin, smears and cell block): A few atypical degenerating epithelioid cells noted in the background of marked acute inflammation. Special stains for acid fast bacilli and fungi are negative for organisms; matched controls are appropriate. SJ:manjula 02/21/19 COMMENT The specimen is evaluated at the time of FNA by Dr. Aleman. Immediate Evaluation: Degenerating atypical epithelioid cells suspicious for malignancy. Marked acute inflammation. Case has been reviewed in consultation with Dr. Roberson who concurs with the above diagnosis. IDC: Immunohistochemistry ([id number]) is non-contributory for definite identification of the cells.. Correlation with clinical, radiologic findings and appropriate follow up are necessary. Excision of the mass is suggested if clinically indicated. Case has been reviewed in consultation with Dr. Aleman who concurs with the above diagnosis. IDC:AM CYTOLOGY STUDY Slides are reviewed. CYTOLOGY GROSS Received is 0.2 ml of reddish fluid labeled with the patient's name, and designated left upper neck mass. Four imprints and three paps are made from the submitted fluid and the rest is added to CytoLyt for cell block preparation. Submitted for cytology study. / AM:manjula 02/18/19 TC:5 CPT: 62349, 72301, 56193, 89717, 83811, 60119 x2
== END ==
PROVIDERS: Family Provider Family Medicine; PCP Family Medicine; Referring Provider Otolaryngology; Visit Provider Otolaryngology
DX: R22.1 Localized swelling, mass and lump, neck (principal)
CPT/HCPCS: 10021; 88161; 88305; 88312; 88341; 88342

== ENCOUNTER → 2019-03-10 06:41 | Outpatient (CLI) | payer MEDICARE, MEDICAID, SELFPAY ==
[2019-02-07 14:59] VITALS: BMI 36.2
--- NOTE | 2019-03-10 06:47 | CT_ITS ---
STUDY: CT SOFT TISSUE NECK WITH CONTRAST REASON FOR EXAM: Female, 63 years old. Left neck mass RADIATION DOSAGE (If Supplied By Facility): CTDIvol = ( 19.04 ) mGy, DLP = ( 551.40 ) mGycm TECHNIQUE: The patient was scanned in a multi-detector CT scanner. High resolution transaxial imaging was performed following intravenous administration of 100mL IV Isovue 300. Sagittal and coronal images were reconstructed. Individualized dose optimization techniques were used for this CT. COMPARISON: CT soft tissue neck 09/17/2017. FINDINGS: There is a new ill-defined approximately 1.36 cm x 2 cm mass within the left neck soft tissues which corresponds to the palpable lesion. Masses superior to the left parotid gland versus involving the superior aspect of the parotid gland and extends to the skin surface. Normal bilateral canal superintendent spaces. Normal bilateral parapharyngeal spaces. Normal bilateral carotid spaces. Normal bilateral sublingual and submandibular glands and spaces. Normal visualized nasopharynx. Normal retropharyngeal space. Normal perivertebral space. Normal visualized bilateral faucial tonsils. The visualized tongue, tongue base and oropharynx are normal. The visualized cervical lymph nodes (levels I-) are within normal size limits, and maintain normal morphology. There is no demonstrated solid or cystic mass lesion. There is no abnormal contrast enhancement. Normal epiglottis, bilateral vallecula and hypopharynx. The pre-epiglottic and paraglottic adipose spaces are normal. Normal visualized bilateral piriform sinuses, aryepiglottic folds, vocal cords, and arytenoid-cricoid articulations. Normal subglottic trachea. There are bilateral subcentimeter thyroid nodules. There is a cardiac pacemaker.. Normal visualized pulmonary apices. Normal visualized paranasal sinuses. Multilevel degenerative changes of the cervical spine displaced the disc osteophyte formation. Mild mucosal thickening within the paranasal sinuses. CT/Soft Tissue Neck WITH Contrast IMPRESSION: There is a new ill-defined approximately 1.36 cm x 2 cm mass within the left neck soft tissues which corresponds to the palpable lesion. The mass is superior to the left parotid gland versus involving the superior aspect of the parotid gland and extends to the skin surface. This mass is indeterminate and may represent benign or malignant soft tissue lesion versus necrotic lymph node or an infectious inflammatory process. An intrinsic parotid tumor such as a pleomorphic adenoma or Warthin's tumor also cannot be excluded. Correlation with aspiration and biopsy is recommended. Bilateral subcentimeter thyroid nodules, thyroid ultrasound follow-up is recommended Multilevel spondylosis of the cervical spine Mild inflammatory changes within the paranasal sinuses Electronically Signed: Andrew Purvis, at 7:29 EDT Tel , Service support ,
== END ==
PROVIDERS: Family Provider Family Medicine; PCP Family Medicine; Referring Provider Otolaryngology; Visit Provider Otolaryngology
DX: R22.1 Localized swelling, mass and lump, neck (principal)
CPT/HCPCS: 70491; Q9967

== ENCOUNTER → 2019-04-06 07:42 | Outpatient (CLI) | payer MEDICARE, SELFPAY ==
[2019-02-07 14:59] VITALS: BMI 36.2
[2019-04-06 08:40] LABS: Potassium 4.2 mmol/L (3.5-5.1)
== END ==
PROVIDERS: Family Provider Family Medicine; PCP Family Medicine
DX: E87.5 Hyperkalemia (principal)
CPT/HCPCS: 36415; 84132

== ENCOUNTER 2019-04-18 13:50 | Emergency (ER) | payer MEDICARE, MEDICAID, SELFPAY ==
[2019-02-07 14:59] VITALS: BMI 36.2
[2019-04-18 13:52] VITALS: BP 139/92; PULSE 86; RESP 17; TEMP 36.9; O2SAT 100; BMI 34.9
--- NOTE | 2019-04-18 14:46 | NURSING ---
CALLED [facility] FOR TRANSFER. DR RODRÍGUEZ TALKING TO THEM
[2019-04-18 14:54] LABS: Absolute Lymphocyte Count 2.07 X10^3/uL (0.83-4.51); Absolute Neutrophil Count 5.8 X10^3/uL (2.0-7.7); Basophil# 0.03 X10^3/uL; Basophil% 0.3 % (0-1); Eosinophil# 0.43 X10^3/uL; Eosinophils% 4.7 % (0-5); Hematocrit 40.7 % (37-47); Hemoglobin 12.9 g/dL (12.0-15.0); Lymphocyte # 2.07 X10^3/ul (4.0); Lymphocyte % 22.6 % (19-41); Mean Corp Hgb Conc 31.7 g/dL (32-36); Mean Corpuscular Hgb 27.8 pg (27.0-32.0); Mean Corpuscular Volume 87.7 fL (81-99); Mean Platelet Vol. 9.2 fl (6.2-12.0); Monocyte# 0.85 X10^3/uL; Monocyte% 9.3 % (0-10); NRBC Flagged by Analyzer 0 % (0-5); Neutrophil # 5.75 X10^3/uL (2.7-7.7); Neutrophil % 62.7 % (47-70); Platelet Count 252 K/mm3 (150-450); RBC Distribution Width CV 14.7 % (11.6-14.6); RBC Distribution Width SD 47.4 fl (35.1-43.9); Red Blood Count 4.64 M/mm3 (4.2-5.4); White Blood Count 9.2 K/mm3 (4.4-11.0)
--- NOTE | 2019-04-18 14:55 | ED.DCSUM_ITS ---
History of Present Illness Chief Complaint: Wound Check Informant: Patient, Significant Other Onset: Yesterday Context: Sudden Onset Timing: Continuous Quality: Pain, swelling and drainage Location: Left neck incision site Current Severity: Mild Maximum Severity: Moderate Worsened by: Palpation Relieved by: Nothing Associated Symptoms: Pain and swelling otherwise negative Narrative: Patient is a 63-year-old woman who was seen by Dr. Salomon, ENT specialist at [facility], who operated on patient April 14. She was seen at outside facility yesterday for swelling, pain and drainage. She was placed on doxycycline. She states she is taken 2 doses. One last evening and one today. She reports presents after contacting her physician's office. Recommended that she be evaluated and that the ER physician contact him. She denies fever, chills or night sweats. She denies change in voice or difficulty swallowing. She denies history of diabetes. She does have history of coronary disease, hypertension and left neck mass that was resected last . Pathology is pending. Prior similar symptoms: Yes Recent Illness/Hospitalization: Yes - Past Medical History (1) Asymptomatic coronary heart disease Status: Acute (2) Dysrhythmia, cardiac Status: Acute (3) History of hypertension Status: Acute (4) Neck mass Status: Acute Past Medical History - Allergies and Home Meds Allergies/Adverse Reactions: Allergies acetaminophen [From Darvocet-N] Allergy (Verified 04/18/19 13:52) Unknown amoxicillin Allergy (Verified 04/18/19 13:52) Unknown codeine Allergy (Verified 04/18/19 13:52) Unknown fentanyl Allergy (Verified 04/18/19 13:52) Unknown hydrocodone bitartrate [From Vicodin] Allergy (Verified 04/18/19 13:52) Unknown Iodinated Contrast Media [Iodinated Contrast Media - IV Dye] Allergy (Verified 04/18/19 13:52) Unknown meperidine [From Demerol] Allergy (Verified 04/18/19 13:52) Unknown morphine Allergy (Verified 04/18/19 13:52) Unknown oxycodone HCl [From Percocet] Allergy (Verified 04/18/19 13:52) Unknown Penicillins [PCN] Allergy (Verified 04/18/19 13:52) Hives promethazine HCl [From Phenergan] Allergy (Verified 04/18/19 13:52) Unknown propoxyphene napsylate [From Darvocet-N] Allergy (Verified 04/18/19 13:52) Unknown Primary Care Physician: Elizabeth Persaud DO [Primary Care Provider] - Prior records reviewed: Yes Surgical History: - - Neck mass left side Lives: Spouse/ Significant Other Smoking Status: Current every day smoker Alcohol: None Drugs: None - Family History Maternal Family History: Reports: No pertinent history Paternal Family History: Reports: No pertinent history Review of Systems General: Denies: Chills, Fever, Malaise, Subjective, Sweats Eyes: Denies: Visual changes - bilaterally, Blurred Vision - bilaterally ENT: Reports: - - Eyes dysphonia or dysphasia. Denies: Rhinorrhea, Sore throat Cardiovascular: Denies: Chest pain, Palpitations Respiratory: Denies: Dyspnea, Cough, Dyspnea on exertion Gastrointestinal: Denies: Nausea, Vomiting, Diarrhea Musculoskeletal: Reports: Neck pain. Denies: Myalgias, Arthralgias, Back pain, Swelling, Extremity Pain Skin: Reports: Rash, Abscess, Wounds Neurological: Reports: Headache. Denies: Weakness, Parasthesia, Numbness Psych: Reports: Depression Endocrine: Denies: Polyuria, Polydipsia Hematologic: Denies: Easy bruising, Easy bleeding Allergy: Denies: Uticaria, Swelling of the mouth, Swelling of the tongue Physical Exam Vital Signs/Narrative: Vital Signs Temp Pulse Resp BP Pulse Ox 04/18/19 13:52 98.4 F 86 17 139/92 H 100 Inital Vital Signs reviewed: Yes General: Well nourished, Well developed Head: Normocephalic, Atraumatic Eyes: Perrl, EOMI. Negative for: Pale conjunctiva, Scleral icterus ENT: Moist mucous membranes, No rhinorrhea, TM's clear. Negative for: Nasal congestion, Sinus tenderness Neck: Supple, No JVD, - - There is induration and slight erythema left neck incision site. Palpation on either side of the incision results and thick green purulent drainage.. Negative for: Nontender, No lymphadenopathy Cardiovascular: Regular rate, Regular rhythm, No murmurs, Normal S1, Normal S2 Respiratory: No distress, CTA bilaterally, Chest nontender, - - There is a palpable ACID left subclavian region. Rectal: Deferred Back: Nontender Extremities: Nontender, No edema Skin: Normal color, Rash - Anterior left neck Neurological: Alert, Oriented x3, Cranial nerves II-XII grossly intact, Normal Strength, Normal Sensation, Normal Gait Psychological: Depressed, Tearful Diagnostic/Tx/Re-eval Laboratory Results 04/18/19 14:47 WBC 9.2 RBC 4.64 Hgb 12.9 Hct 40.7 MCV 87.7 MCH 27.8 MCHC 31.7 L RDW Std Deviation 47.4 H RDW Coeff of Sal 14.7 H Plt Count 252 MPV 9.2 Immature Gran % (Auto) 0.400 Neut % (Auto) 62.7 Lymph % (Auto) 22.6 Banks % (Auto) 9.3 Eos % (Auto) 4.7 Baso % (Auto) 0.3 Absolute Neuts (auto) 5.8 Absolute Lymphs (auto) 2.07 Nucleated RBC % 0 - Medical Decision Making 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 He requested ER to ER transfer. Spoke with the ER physician to see him BMP was ordered. Number was given for nurse to nurse report. ED Disposition - Plan for ED Patient: Disposition: Acute Care Hospital - Other Diagnosis: Postoperative wound infection, Abscess, neck Referrals: Elizabeth Persaud DO [Primary Care Provider] -
[2019-04-18 15:09] LABS: Anion Gap 6 (5-15); BUN 17 mg/dL (7-18); BUN/Creat Ratio 16.5 RATIO (10-20); Calcium,Total 9.5 mg/dL (8.5-10.1); Chloride 103 mmol/L (98-107); Creatinine, Serum 1.03 mg/dL (0.55-1.02); EST Glomerular Filtration Rate 57 mL/min (>60); Est Glom Filt Rate - Afr Amer 69 mL/min (>60); Estimated Creatinine Clearance 39.11 ml/min; Glucose 87 mg/dL (74-106); Potassium 3.9 mmol/L (3.5-5.1); Sodium Level 139 mmol/L (136-145)
[2019-04-18] MEDS: HYDROmorphone 0.5 MG/0.5 ML SYRINGE IV (15:11)
[2019-04-18] MEDS: Ondansetron 4 MG/2 ML Vial IV (15:11)
--- NOTE | 2019-04-18 15:16 | NURSING ---
CALLED [facility] FOR TRANSPORT. ETA IS FROM [place]
[2019-04-18 15:18] VITALS: BP 123/74; PULSE 78; RESP 18; TEMP 36.9; O2SAT 97
--- NOTE | 2019-04-18 15:48 | ED.RN ---
attempted report to PANCHO singh 3x.
--- NOTE | 2019-04-18 15:51 | ED.RN ---
another attempt to call report to Er with a different telephone number. placed on hold for 5 minutes. has been attempting [phone]
== END 2019-04-18 15:46 | disposition short-term general hospital (02) ==
PROVIDERS: Emergency Provider Emergency Medicine; Family Provider Family Medicine; PCP Family Medicine
DX: T81.41XA Infection following a procedure, superficial incisional surgical site, initial encounter (principal); L02.11 Cutaneous abscess of neck; I25.10 Atherosclerotic heart disease of native coronary artery without angina pectoris; I10 Essential (primary) hypertension; F17.200 Nicotine dependence, unspecified, uncomplicated; Z79.02 Long term (current) use of antithrombotics/antiplatelets; Z79.82 Long term (current) use of aspirin; Z79.899 Other long term (current) drug therapy; Z88.8 Allergy status to other drugs, medicaments and biological substances; Z88.5 Allergy status to narcotic agent; Z88.0 Allergy status to penicillin
CPT/HCPCS: 80048; 85025; 96374; 96375; 99281; 99283; A4216; J2405

== ENCOUNTER 2019-04-25 11:51 | Emergency (ER) | payer MEDICARE, MEDICAID, SELFPAY ==
[2019-04-25] VITALS (8 sets, daily range): BP systolic 140–156; BP diastolic 75–101; PULSE 67–98; RESP 16–18; TEMP 36.4–37.1; O2SAT 97–100; BMI 35.3
--- NOTE | 2019-04-25 12:03 | ED.RN ---
ENT DR AT [facility] CARING FOR PT IS DR. LLOYD DESAI MD, PHONE NUMBER [phone], APPTS [phone]
--- NOTE | 2019-04-25 12:15 | ED.VIS.GEN ---
History of Present Illness <Anuel Escoto - Last Filed: 04/25/19 12:28> Narrative: 63-year-old female presents with concern for wound infection. Patient had tumor removed behind her left ear approximately 2 weeks ago. States following her discharge from the hospital she developed an infection and was seen here at [facility] emergency department. Was sent back to [facility] for further IV antibiotics. Discharge from the hospital 3 days ago. Patient concerned because there is continued drainage as well as intermittent fever and chills as well as increasing pain. Denies any headache, vision change, neck pain. <Aime Graham - Last Filed: 04/25/19 13:47> Chief Complaint: Wound Check Past Medical History <Anuel Escoto - Last Filed: 04/25/19 12:28> Prior records reviewed: Yes Past Medical History: - - Coronary artery disease, hypertension, neck mass Surgical History: - - Neck mass left side Smoking Status: Current every day smoker - Family History Maternal Family History: Reports: No pertinent history Paternal Family History: Reports: No pertinent history <Aime Graham - Last Filed: 04/25/19 13:47> - Allergies and Home Meds Allergies/Adverse Reactions: Allergies acetaminophen [From Darvocet-N] Allergy (Verified 04/18/19 13:52) Unknown amoxicillin Allergy (Verified 04/18/19 13:52) Unknown codeine Allergy (Verified 04/18/19 13:52) Unknown fentanyl Allergy (Verified 04/18/19 13:52) Unknown hydrocodone bitartrate [From Vicodin] Allergy (Verified 04/18/19 13:52) Unknown Iodinated Contrast Media [Iodinated Contrast Media - IV Dye] Allergy (Verified 04/18/19 13:52) Unknown meperidine [From Demerol] Allergy (Verified 04/18/19 13:52) Unknown morphine Allergy (Verified 04/18/19 13:52) Unknown oxycodone HCl [From Percocet] Allergy (Verified 04/18/19 13:52) Unknown Penicillins [PCN] Allergy (Verified 04/18/19 13:52) Hives promethazine HCl [From Phenergan] Allergy (Verified 04/18/19 13:52) Unknown propoxyphene napsylate [From Darvocet-N] Allergy (Verified 04/18/19 13:52) Unknown MYCINS Allergy (Uncoded 04/25/19 11:55) Unknown Primary Care Physician: Elizabeth Persaud DO [Primary Care Provider] - Review of Systems General: Denies: Chills, Fever, Sweats Eyes: Denies: Visual changes - bilaterally, Diplopia ENT: Denies: Rhinorrhea, Sore throat Cardiovascular: Denies: Chest pain, Palpitations Respiratory: Denies: Dyspnea, Cough, Dyspnea on exertion Gastrointestinal: Denies: Abdominal pain, Nausea, Vomiting, Diarrhea, Melena, Hematochezia Genitourinary: Denies: Dysuria, Hematuria, Frequency Musculoskeletal: Denies: Neck pain Skin: Reports: Wounds, - - Posterior ear wound. Denies: Rash Neurological: Denies: Headache, Weakness, Numbness <Aime Graham - Last Filed: 04/25/19 13:47> Physical Exam Vital Signs/Narrative: Vital Signs Temp Pulse Resp BP Pulse Ox 04/25/19 12:01 97.5 F L 90 16 140/81 H 100 04/25/19 11:52 97.5 F L 90 16 140/81 H 100 <Anuel Escoto - Last Filed: 04/25/19 12:28> Vital Signs/Narrative: Vital Signs Temp Pulse Resp BP Pulse Ox 04/25/19 12:01 97.5 F L 90 16 140/81 H 100 04/25/19 11:52 97.5 F L 90 16 140/81 H 100 Inital Vital Signs reviewed: Yes General: Well nourished, Well developed, No Acute Distress Head: Normocephalic, Atraumatic Eyes: Perrl, EOMI ENT: Moist mucous membranes, No rhinorrhea Neck: Supple, Nontender Cardiovascular: Regular rate, Regular rhythm, No murmurs Respiratory: No distress, CTA bilaterally, Chest nontender Abdomen: Soft, Nontender, Nondistended, Normal bowel sounds Back: Nontender, Normal Inspection Extremities: Nontender, No edema Skin: Normal color, No rash, - - Day of open wound posterior to the left ear. Draining clear fluid. Tender to palpation surrounding. No evidence of cellulitis. Neurological: Alert, Oriented x3, Cranial nerves II-XII grossly intact, Normal Strength, Normal Sensation Psychological: Normal affect, Normal Mood <Aime Graham - Last Filed: 04/25/19 13:47> Diagnostic/Tx/Re-eval - Medical Decision Making Patient evaluated with our resident. Status post left neck malignant tumor resection at . Has become infected she was recently admitted to for this. Currently is on Levaquin. They are concerned because I think it is getting worse. Older female no acute distress vital signs stable afebrile. She has a wound on her left neck posterior and inferior to her ear. We will has an open wound that is draining like material. Red around it and tender. There is no facial cellulitis. Lungs clear. Heart regular rhythm no murmur. Abdomen soft nontender. Neurologically she is awake and alert. Patient will be transferred to for repeat evaluation. We spoke to her surgeon. (1) Status post left neck mass resection with wound infection. <Anuel Escoto - Last Filed: 04/25/19 12:28> - Medical Decision Making Patient appears well nontoxic. Vital signs within normal limits. Draining wound behind the left ear. Spoke with Dr. Farias and surgeon at [facility] who suggested transfer to the [facility]. Requested just IV placement without blood work or imaging. No antibiotics requested at this time. Patient will be transferred. <Aime Graham - Last Filed: 04/25/19 13:47> ED Disposition <Anuel Escoto - Last Filed: 04/25/19 12:28> <Aime Graham - Last Filed: 04/25/19 13:47> - Plan for ED Patient: Disposition: Acute Care Hospital - Other Diagnosis: Post-operative infection Referrals: Elizabeth Persaud DO [Primary Care Provider] -
[2019-04-25] MEDS: HYDROmorphone 0.5 MG/0.5 ML SYRINGE IV (15:40)
--- NOTE | 2019-04-25 16:10 | ED.RN ---
5095 pt informed that it would be 1700 before squad would be here. pt aware and stated that she would be going out to smoke. SO and other family member aware
== END 2019-04-25 17:11 | disposition short-term general hospital (02) ==
PROVIDERS: Emergency Provider Emergency Medicine; Family Provider Family Medicine; PCP Family Medicine
DX: T81.49XA Infection following a procedure, other surgical site, initial encounter (principal); L08.9 Local infection of the skin and subcutaneous tissue, unspecified; F17.200 Nicotine dependence, unspecified, uncomplicated; I25.10 Atherosclerotic heart disease of native coronary artery without angina pectoris; I10 Essential (primary) hypertension; Z79.82 Long term (current) use of aspirin; Z79.02 Long term (current) use of antithrombotics/antiplatelets; Z79.899 Other long term (current) drug therapy
CPT/HCPCS: 96374; 99285; A4216

== ENCOUNTER 2020-04-02 14:57 | Inpatient (IN) | payer MEDICARE, MEDICAID, SELFPAY ==
[2019-04-25 11:52] VITALS: BMI 35.3
[2020-04-02] VITALS (11 sets, daily range): BP systolic 90–123; BP diastolic 60–72; PULSE 88–100; RESP 13–24; TEMP 36.7–38.2; O2SAT 54–98; BMI 36.6; BMI 38.7
--- NOTE | 2020-04-02 15:08 | EKG12_ITS ---
Test Reason : OD Blood Pressure : / mmHG Vent. Rate : 103 BPM Atrial Rate : 103 BPM P-R Int : 184 ms QRS Dur : 124 ms QT Int : 360 ms P-R-T Axes : 015 208 012 degrees QTc Int : 471 ms Atrial-sensed ventricular-paced rhythm Abnormal ECG Confirmed by LIZ CAMPBELL, TAMI ([id number]), international editorial producer SANFORD RHODES ([id number]) on 04/04/2020 9:35:43 AM Referred By: WANDY Confirmed By:TAMI HILL MD
--- NOTE | 2020-04-02 15:08 | RAD_ITS ---
STUDY: X-RAY CHEST REASON FOR EXAM: Female, 64 years old. FEVER, LETHARGIC, CONFUSION TECHNIQUE: Single AP portable view of the chest. COMPARISON: February 07, 2019 FINDINGS: Stable left chest cardiac device and leads. Chronic interstitial thickening of both lungs. No focal consolidation. There is no demonstrated pleural abnormality. Normal size heart. The remaining structures are stable. RAD/Chest 1 View (Portable) IMPRESSION: No acute process Electronically Signed: Geremias Shelley MD at 16:46 EDT , Service support ,
--- NOTE | 2020-04-02 15:10 | ED.VISSUMM ---
- ER Visit Summary Date of Service: 04/02/20 Chief Complaint: Altered mental status History of Present Illness: The patient is a 64 F who presents with altered mental status that began today. states patient was recently admitted to [facility] for abdominal pain and urinary tract infection. states the patient was getting Dilaudid every 6 hours while she was in the hospital. is unsure if the patient took too many Dilaudid pills. states that the patient has been sleeping for the past 12 hours. Patient does respond to verbal stimuli but is a poor historian. Physical Examination: Vital signs are stable except for low blood pressure of 90/64. Patient has a temperature of 100.7 here. Pupils are equal, round, and reactive to light. There are approximately 4 mm in diameter and react down to 3 mm. Heart was regular rate and rhythm. Lungs showed scattered rhonchi. Abdomen is soft. Bowel sounds are normal. There is no tenderness. Cranial nerves II through XII are grossly intact. Patient does move all extremities. Test Results: EKG showed a paced rhythm with a rate of 103. There is a left bundle branch block. There are no acute changes. This was unchanged compared to previous EKG dated 02/09/2019. CBC shows a leukocytosis of 15.4. BUN was 48 and creatinine was 3.9. These were elevated compared to previous results. Alk phos was slightly elevated at 160. INR was normal and PTT were normal. Lactate was normal. Arterial blood gas was obtained and was essentially within normal limits. CT scan of the brain was obtained. There is no acute intracranial abnormality. Portable chest x-ray was obtained. There is no acute cardiopulmonary process. These were interpreted by the radiologist and reviewed by myself. Urinalysis is ordered and is pending. Emergency Department Course and Treatment: Patient was placed on oxygen. Patient was given IV fluids. Patient was given a dose of Narcan IV. Patient became more talkative but was talking nonsense. Patient was reevaluated. Patient's blood pressure was still somewhat low. Patient was given a repeat bolus of IV fluids. Patient still falls asleep rather easily but awakens to verbal stimuli. Patient is only alert and oriented to person at this time. Review of previous discharge summary from [facility] showed that the patient's creatinine was 0.87 on discharge compared to 1.16 on admission at that time. Patient has SIRS criteria but no source of infection at this time. Patient was started on Rocephin. Case was discussed with the hospitalist, Dr. Pierce. He will admit the patient to PCU. Family understands and is agreeable with the plan. All questions were answered. Disposition: Admit to PCU Impression: 1. Acute kidney injury 2. Altered mental status 3. SIRS criteria This note was generated with [employer] dictation software. It may contain incorrect words, spelling, and punctuation that were not noted in review of the chart prior to signing ED Disposition - Plan for ED Patient: Disposition: Acute Care Hospital [facility] Diagnosis: Acute kidney injury, Altered mental status, SIRS (systemic inflammatory response syndrome) Referrals: Elizabeth Persaud DO [Primary Care Provider] -
[2020-04-02] MEDS: Naloxone 2 MG/2 ML Syringe IV (15:15)
[2020-04-02] MEDS: Ondansetron 4 MG/2 ML Vial IV (15:35)
[2020-04-02] MEDS: 0.9% Normal Saline 1,000 ML 999 ML IV (15:35)
--- NOTE | 2020-04-02 15:52 | CT_ITS ---
STUDY: CT BRAIN WITHOUT CONTRAST REASON FOR EXAM: Female, 64 years old. Altered mental status RADIATION DOSAGE (If Supplied By Facility): CTDIvol = ( 44.99 ) mGy, DLP = ( 796.11 ) mGycm TECHNIQUE: Transaxial CT imaging of the brain was performed without administration of intravenous contrast material. Individualized dose optimization techniques were used for this CT. COMPARISON: Head CT dated February 08 2019 FINDINGS: Normal soft tissue structures. Normal calvarium. Normal size ventricles and extra-axial spaces for the patient''s age. Normal white matter tracts of the cerebral hemispheres. Normal basal ganglia and thalami. Normal brainstem. Normal cerebellum. There is no intracranial hemorrhage. There are no findings of an acute ischemic infarction. There is mucoperiosteal inflammatory disease of the paranasal sinuses consistent with mild chronic sinusitis. CT/Brain/Head without Contrast IMPRESSION: No demonstrated acute or significant intracranial process. Electronically Signed: Geremias Shelley MD at 16:35 EDT , Service support ,
[2020-04-02 16:11] LABS: Blood Gas Specimen Type ART; O2 Delivery Device Nasal Can; SITE R BRACHIAL
[2020-04-02 16:12] LABS: pH 7.36 (7.35-7.45)
[2020-04-02 16:13] LABS: Absolute Lymphocyte Count 1.36 X10^3/uL (0.83-4.51); Absolute Neutrophil Count 12.9 X10^3/uL (2.0-7.7); Basophil# 0.02 X10^3/uL; Basophil% 0.1 % (0-1); Eosinophil# 0.01 X10^3/uL; Eosinophils% 0.1 % (0-5); Hematocrit 35.7 % (37-47); Hemoglobin 11.2 g/dL (12.0-15.0); Lymphocyte # 1.36 X10^3/ul (4.0); Lymphocyte % 8.8 % (19-41); Mean Corp Hgb Conc 31.4 g/dL (32-36); Mean Corpuscular Hgb 27.3 pg (27.0-32.0); Mean Corpuscular Volume 86.9 fL (81-99); Mean Platelet Vol. 9.8 fl (6.2-12.0); Monocyte# 1.11 X10^3/uL; Monocyte% 7.2 % (0-10); NRBC Flagged by Analyzer 0 % (0-5); Neutrophil # 12.85 X10^3/uL (2.7-7.7); Neutrophil % 83.3 % (47-70); Platelet Count 236 K/mm3 (150-450); RBC Distribution Width CV 16.4 % (11.6-14.6); RBC Distribution Width SD 52.4 fl (35.1-43.9); Red Blood Count 4.11 M/mm3 (4.2-5.4); White Blood Count 15.4 K/mm3 (4.4-11.0)
[2020-04-02 16:13] LABS: Base Excess -1 mmol/L (-2 to +2); Bicarbonate 24.2 mmol/L (22-26); PO2 100 mmHG (75-100); SO2 98 % (95-99); Total Carbon Dioxide 26 mmol/L
[2020-04-02 16:31] LABS: ALB/GLOB Ratio 0.8 RATIO (0.9-2.4); AST(SGOT) 32 U/L (15-37); Alanine Aminotransfer ALT/SGPT 28 U/L (13-56); Alkaline Phosphatase 160 U/L (45-117); Anion Gap 8 (5-15); BUN 48 mg/dL (7-18); BUN/Creat Ratio 12.3 RATIO (10-20); Calcium,Total 7.9 mg/dL (8.5-10.1); Chloride 104 mmol/L (98-107); EST Glomerular Filtration Rate 12 mL/min (>60); Est Glom Filt Rate - Afr Amer 15 mL/min (>60); Estimated Creatinine Clearance 11.22 ml/min; Glucose 130 mg/dL (74-106); Potassium 4.5 mmol/L (3.5-5.1); Sodium Level 136 mmol/L (136-145)
[2020-04-02 16:32] LABS: Prothrombin Time (Protime)PT. 12.9 SECONDS (11.7-14.9)
[2020-04-02 16:33] LABS: Partial Thromboplast Time 28.7 Seconds (24.1-36.2)
[2020-04-02 17:02] LABS: Color, Urine Amber (Yellow); Glucose, Dipstick Normal (Normal); Ketone-Dipstick 5 mg/dl (Negative); Leukocyte Esterase-Dipstick 25 /ul (Negative); Nitrite-Dipstick Negative (Negative); Occult Blood-Urine 10 /ul (Negative); Protein-Dipstick 15 mg/dl (Negative); Specific Gravity, Urine 1.025 (1.002-1.030); Urine Clarity Sl. Cloudy (Clear); Urine Urobilinogen 4 mg/dl (Normal)
[2020-04-02 17:15] LABS: Urine Bilirubin Dipstick 6 mg/dL (Negative)
[2020-04-02 17:16] LABS: Hyaline Cast 10-25 SEEN /lpf (0-5); Squamous Epithelial Cells - UA 5-10 SEEN /hpf (5-10)
[2020-04-02 17:17] LABS: Bacteria 2+ /hpf (None Seen); Mucous, Urine 1+ /hpf (<or=2+); Red Blood Cells-Urine 0-5 SEEN /hpf (0-5); White Blood Cells 5-10 SEEN /hpf (0-5)
[2020-04-02] MEDS: 0.9% Normal Saline 1,000 ML 1000 ML IV (17:17)
[2020-04-02] MEDS: Acetaminophen 650 MG Suppository RECTAL (17:17)
[2020-04-02 17:18] LABS: Amorphous Sediment 2+; Uric Acid Crystals Ur 1+ /hpf (<or=1+)
[2020-04-02] MEDS: Ceftriaxone 1 GM/50 ML BAG IV (17:18)
--- NOTE | 2020-04-02 17:23 | PCM.HP.STD ---
Problem List (1) Acute encephalopathy Status: Acute (2) Opiate overdose Status: Acute (3) Sepsis Status: Acute (4) UTI (urinary tract infection) Status: Acute (5) DDD (degenerative disc disease) Status: Acute (6) Acute kidney injury Status: Acute (7) Altered mental status Status: Acute (8) History of hypertension Status: Acute History of Present Illness Date of Admission: 04/02/20 Chief Complaint: altered mental status The patient is a 64 year old F with pmhx of narcotic dependence on dilaudid, back pain, CAD, who presented to the ER unresponsive. She was last seen normal by her significant other at about 9pm last night when she went to bed. She was sleeping all day, and he walked into the bedroom about 3pm and she was on the floor unconscious next to the bed. She was brought to the ER and given narcan and had good response. She is still lethargic but wakes up and answers questions despite being groggy. She was at [facility] about 1 month ago and treated for UTI. She was also receiving dilaudid while there. She was taking bactrim as an outpatient, then was placed on IV rocephin at [place], transitioned to cefdinir at discharge, and then since then has been taking a new bactrim prescription. In the ER she was found to have evidence of UTI, sepsis, and FARZANA. [] Past Medical History Allergies acetaminophen [From Darvocet-N] Allergy (Verified 04/02/20 15:01) Unknown amoxicillin Allergy (Verified 04/02/20 15:01) Unknown codeine Allergy (Verified 04/02/20 15:01) Unknown fentanyl Allergy (Verified 04/02/20 15:01) Unknown hydrocodone bitartrate [From Vicodin] Allergy (Verified 04/02/20 15:01) Unknown Iodinated Contrast Media [Iodinated Contrast Media - IV Dye] Allergy (Verified 04/02/20 15:01) Unknown meperidine [From Demerol] Allergy (Verified 04/02/20 15:01) Unknown morphine Allergy (Verified 04/02/20 15:01) Unknown oxycodone HCl [From Percocet] Allergy (Verified 04/02/20 15:01) Unknown Penicillins [PCN] Allergy (Verified 04/02/20 15:01) Hives promethazine HCl [From Phenergan] Allergy (Verified 04/02/20 15:01) Unknown propoxyphene napsylate [From Darvocet-N] Allergy (Verified 04/02/20 15:01) Unknown MYCINS Allergy (Uncoded 04/02/20 15:01) Unknown Home Medications: Ambulatory Orders Medication Instructions Recorded Aspirin [Aspirin, Baby] 81 mg PO DAILY@0800 05/29/15 Carvedilol [Coreg (Beta Ana)] 25 mg PO DAILY 05/29/15 Esomeprazole Mag Trihydrate 20 mg PO DAILY 05/29/15 [Nexium] Famotidine [Pepcid] 40 mg PO DAILY 05/29/15 Fluticasone/Salmeterol [Advair 1 puff INHALATION BID 05/29/15 250/50 Mcg Diskus] Lisinopril [Zestril] 5 mg PO DAILY 05/29/15 Lorazepam [Ativan] 0.5 mg PO DAILY PRN PRN 05/29/15 Ondansetron [Zofran Odt] 4 mg PO Q8H PRN PRN 05/29/15 Verapamil [Calan] 120 mg PO DAILY 05/29/15 Gabapentin [Neurontin] 400 mg PO QHS 11/02/16 Hydromorphone HCl [Dilaudid] 12 mg PO QHS 11/02/16 Clopidogrel Bisulfate [Plavix] 75 mg PO DAILY 10/16/17 Hydromorphone HCl [Dilaudid] 8 mg PO PRN PRN 10/16/17 Meloxicam [Mobic] 15 mg PO DAILY 10/16/17 Levofloxacin [Levaquin] 750 mg PO DAILY 04/25/19 Ezetimibe [Zetia] 10 mg PO DAILY 04/02/20 Pravastatin [Pravachol] 20 mg PO QHS 04/02/20 Smz/Tmp Ds [Bactrim Ds] 1 tab PO BID 04/02/20 Surgical History: - - Neck mass left side Psychiatric History: No pertinent psych hx MARKET REPORTER 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: No pertinent MARKET REPORTER history Smoking Status: Current every day smoker Tobacco Use: Cigarettes Alcohol: None Drugs: None - *Family History Maternal History Items: No pertinent history Paternal History Items: No pertinent history Review of Systems Constitutional: Denies: Chills, Fever, Weight Change HEENT: Denies: Head Aches, Sinus Congestion, Sinus Drainage Cardiovascular: Denies: Chest Pain, Palpitations Respiratory: Denies: Cough, Shortness of breath at rest, Sputum production Gastrointestinal: Denies: Abdominal Pain, Nausea, Vomiting Genitourinary: Denies: Dysuria Musculoskeletal: Denies: Joint Pain, Joint Tenderness Skin: Denies: Rash, Wounds Neurological: Reports: - - confused, lethargic.. Denies: Focal weakness, Numbness, Tingling Psychiatric: Denies: Anxiety, Depression, Homicidal Ideations, Suicidal Ideations Hematologic/ Lymphatic: Denies: Easy Bruising, Easy Bleeding VTE Information - Inpt Only VTE Present on Admission: No VTE Mechan Device Prophylaxis: None VTE Pharm Prophylaxis ordered?: Yes Patient Problems: Active and Suspected Problems Acute kidney injury (Acute) Altered mental status (Acute) SIRS (systemic inflammatory response syndrome) (Acute) Opiate overdose (Acute) Sepsis (Acute) UTI (urinary tract infection) (Acute) DDD (degenerative disc disease) (Acute) Acute encephalopathy (Acute) - Physical Exam Vitals/I&O's: Vital Signs Temp Pulse Resp BP Pulse Ox 99.1 F 98 19 H 107/60 91 04/02/20 17:19 04/02/20 17:19 04/02/20 17:19 04/02/20 17:19 04/02/20 17:19 Oxygen Flow Rate (L/min) 2 Oxygen Delivery Method Nasal Cannula Weight: 199 lb 15.348 oz Body Mass Index (BMI) 36.6 Intake and Output for Last 24 Hours 03/31/20 04/01/20 04/02/20 23:59 23:59 23:59 Intake Total 1000 / 1000 Balance 1000 / 1000 General: Alert, Oriented x3, Cooperative, Lethargic HEENT: Atraumatic, PERRLA, EOMI, Normocephalic Neck: Supple, No JVD, Negative Carotid Bruits Lungs: Clear to auscultation, Diminished Cardiovascular: Regular rate, No murmurs Abdomen: Bowel Sounds Present, Soft, Non Tender, Obese Extremities: No edema, Capillary Refill Less than 3 Seconds Skin: No rashes, No breakdown Musculoskeletal: No Tenderness to Palpation of Joints or Extremities Neurological: Cranial nerves II-XII grossly intact Psych/Mental Status: Normal Affect, Appropriate Laboratory Results 04/02/20 15:52: WBC 15.4 H, RBC 4.11 L, Hgb 11.2 L, Hct 35.7 L, MCV 86.9, MCH 27.3, MCHC 31.4 L, RDW Std Deviation 52.4 H, RDW Coeff of Sal 16.4 H, Plt Count 236, MPV 9.8, Immature Gran % (Auto) 0.500, Neut % (Auto) 83.3 H, Lymph % (Auto) 8.8 L, [place] % (Auto) 7.2, Eos % (Auto) 0.1, Baso % (Auto) 0.1, Absolute Neuts (auto) 12.9 H, Absolute Lymphs (auto) 1.36, Nucleated RBC % 0 04/02/20 15:52: PT 12.9, INR 1.0, APTT 28.7 04/02/20 15:52: Sodium 136, Potassium 4.5, Chloride 104, Carbon Dioxide 24.0, Anion Gap 8, BUN 48 H, Creatinine 3.90 H, Estim Creat Clear Calc 11.22, Est GFR (MDRD) Af Amer 15 L, Est GFR (MDRD) Non-Af 12 L, BUN/Creatinine Ratio 12.3, Glucose 130 H, Calcium 7.9 L, Total Bilirubin 0.80, AST 32, ALT 28, Alkaline Phosphatase 160 H, Total Protein 7.0, Albumin 3.0 L, Globulin 4.0, Albumin/Globulin Ratio 0.8 L 04/02/20 15:52: Lactic Acid 1.0 04/02/20 15:59: Specimen Type ART, Sample Site R BRACHIAL, pH 7.36, Bicarbonate Actual 24.2, Total CO2 26, Base Excess -1, O2 Saturation 98, ABG pCO2 43.0, ABG pO2 100, O2 Delivery Device Nasal Can, Liter Flow 2.0, Blood Gas Notified Whom ED 04/02/20 16:35: Urine Color Ramona, Urine Clarity Sl. Cloudy, Urine pH 5.0, Ur Specific [place] 1.025, Urine Protein 15 H, Urine Glucose (UA) Normal, Urine Ketones 5 H, Urine Occult Blood 10 H, Urine Nitrite Negative, Urine Bilirubin 6 H, Urine Urobilinogen 4 H, Ur Leukocyte Esterase 25 H, Urine RBC 0-5 SEEN, Urine WBC 5-10 SEEN, Ur Squamous Epith Cells 5-10 SEEN, Uric Acid Crystals 1+, Amorphous Sediment 2+, Urine Bacteria 2+, Hyaline Casts 10-25 SEEN, Urine Mucus 1+ Current Medications Sodium Chloride () 1,000 mls @ 1,000 mls/hr IV .Q1H ONE Stop: 04/02/20 17:42 Last Admin: 04/02/20 17:17 Dose: 1,000 mls/hr Documented by: Ceftriaxone Sodium (Rocephin) 1 gm in 50 mls @ 100 mls/hr IV X1 ONE Stop: 04/02/20 17:28 Last Admin: 04/02/20 17:18 Dose: 100 mls/hr Documented by: Assessment/Plan All Active Problems Head injury (Acute) Ataxia (Acute) Fall (Acute) Balance problem (Acute) Asymptomatic coronary heart disease (Acute) Dysrhythmia, cardiac (Acute) History of hypertension (Acute) Neck mass (Acute) Acute kidney injury (Acute) Altered mental status (Acute) SIRS (systemic inflammatory response syndrome) (Acute) Opiate overdose (Acute) Sepsis (Acute) UTI (urinary tract infection) (Acute) DDD (degenerative disc disease) (Acute) Acute encephalopathy (Acute) 1. Acute encephalopathy probably a combination of metabolic and toxic due to UTI, FARZANA, and dilaudid. Pt improving at this time post dilaudid. Avoid sedating medications. ABG wnl. Hold gabapentin, ativan, dilaudid. Pt cannot provide a clear hx, need to obtain record from PCP with updated home med list and problem list. 2. Acute sepsis 2/2 recurrent UTI - + UA, fever, leukocytosis, tachypnea, pulse >90. Negative lactate. Start rocephin 3. FARZANA - suspect 2/2 dehydration + bactrim use. Stop bactrim, stop NSAIDs, hold PAL inhibitor 4. Chronic opiate dependence - follows pain management Dr. Hernandez in [place] 5. Hx CAD - aspirin, coreg, plavix, statin, verapamil? 6. GERD - ppi DVT ppx: heparin This patient was seen by Shantanu Eisenberg PA-C under the supervision of Dr. Pierce
--- NOTE | 2020-04-02 17:27 | NURSING ---
[facility], altered mental status, sirs
[2020-04-02] MEDS: 0.9% Normal Saline 1,000 ML 175 ML IV (22:57)
[2020-04-02] MEDS: Heparin Injection (Vial) 5,000 UNIT/ML VIAL 5000 UNIT SC (22:57)
[2020-04-02 23:27] LABS: Amphetamine Urine VISTA NEGATIVE (<1000 ng/mL); Barbiturate Urine VISTA NEGATIVE (< 200 ng/mL); Benzodiazepine Urine VISTA NEGATIVE (< 200 ng/mL); Cocaine Urine VISTA NEGATIVE (< 300 ng/mL); Ecstacy Urine VISTA NEGATIVE (< 500 ng/mL); Methadone Urine VISTA NEGATIVE (< 300 ng/mL); PCP Urine VISTA NEGATIVE (< 25 ng/mL); THC Urine VISTA NEGATIVE (< 50 ng/mL); Vista UDS pH Range 5
[2020-04-03] VITALS (11 sets, daily range): BP systolic 91–158; BP diastolic 65–98; PULSE 83–92; RESP 16–22; TEMP 35.7–36.7; O2SAT 94–98
[2020-04-03] MEDS: 0.9% Normal Saline 1,000 ML 175 ML IV ×3 (04:41→14:45)
[2020-04-03] MEDS: Nystatin Powder 15gm Bottle 1 APPLIC TOPICAL ×3 (05:53→22:33)
[2020-04-03] MEDS: 0.9% Saline Lock 10 ML Syringe IV ×3 (05:53→09:26)
[2020-04-03 06:47] LABS: Anion Gap 3 (5-15); BUN 39 mg/dL (7-18); BUN/Creat Ratio 19.6 RATIO (10-20); Calcium,Total 7.8 mg/dL (8.5-10.1); Chloride 110 mmol/L (98-107); Creatinine, Serum 1.99 mg/dL (0.55-1.02); EST Glomerular Filtration Rate 27 mL/min (>60); Est Glom Filt Rate - Afr Amer 32 mL/min (>60); Estimated Creatinine Clearance 19.97 ml/min; Glucose 92 mg/dL (74-106); Potassium 4.4 mmol/L (3.5-5.1); Sodium Level 139 mmol/L (136-145)
[2020-04-03] MEDS: Aspirin 81 MG TAB.CHEW PO (07:58)
[2020-04-03] MEDS: Heparin Injection (Vial) 5,000 UNIT/ML VIAL 5000 UNIT SC ×2 (09:20→22:33)
[2020-04-03] MEDS: Pantoprazole Sodium 40 MG Tablet PO (09:20)
[2020-04-03] MEDS: Clopidogrel Bisulfate 75 MG Tablet PO (09:20)
[2020-04-03] MEDS: Ezetimibe 10 MG Tablet PO (09:20)
[2020-04-03] MEDS: Ondansetron 4 MG/2 ML Vial IV (09:25)
[2020-04-03] MEDS: Ceftriaxone 1 GM/50 ML BAG IV (09:58)
--- NOTE | 2020-04-03 10:53 | US_ITS ---
STUDY: RENAL ULTRASOUND - COMPLETE REASON FOR EXAM: Female, 64 years old. PYELONEPHRITIS TECHNIQUE: Ultrasound evaluation of the kidneys was performed with real-time and static luong-scale imaging. COMPARISON: None. FINDINGS: RIGHT KIDNEY: Normal location of the right kidney, which is normal in size. The right kidney measures 9.3 x 4.0 x 4.2 cm. There is a normal cortex of the right kidney. The renal cortex measures 1.2 cm. There is a subcentimeter right renal cyst. There are no right renal calculi. There is no right hydronephrosis. DISTAL RIGHT URETER: There is non-visualization of the distal right ureter. There is no demonstrated right ureterovesical junction calculus. There is no demonstrated right ureteral jet. LEFT KIDNEY: Normal location of the left kidney, which is normal in size. The left kidney measures 10.3 x 4.2 x 4.6 cm. There is a normal cortex of the left kidney. The renal cortex measures 1.5 cm. There is a 1.7 x 2.2 x 1.6 cm left renal cyst. There are no left renal calculi. There is no left hydronephrosis. DISTAL LEFT URETER: There is non-visualization of the distal left ureter. There is no demonstrated left ureterovesical junction calculus. There is no demonstrated left ureteral jet. BLADDER: The distended urinary bladder has a volume of 421 ml. There is a normal wall thickness of the distended urinary bladder. Bladder wall thickness is 3 mm. There is no demonstrated mass within the urinary bladder. There are no demonstrated bladder calculi. US/Kidney and Bladder IMPRESSION: Small bilateral renal cysts. Electronically Signed: Jeffrey Ocampo MD at 17:11 EDT , Service support ,
--- NOTE | 2020-04-03 12:23 | PN_ITS ---
<Shantanu Eisenberg PA - Last Filed: 04/03/20 12:23> Patient Problems: Active and Suspected Problems Acute kidney injury (Acute) Altered mental status (Acute) SIRS (systemic inflammatory response syndrome) (Acute) Opiate overdose (Acute) Sepsis (Acute) UTI (urinary tract infection) (Acute) DDD (degenerative disc disease) (Acute) Acute encephalopathy (Acute) Reason for Visit: sepsis, overdose, farzana Subjective: Pt complains of lower abd pain, mild. She complains of chills and hot flashes overnight. She has nausea without vomiting. She reports loose stools. She does report dysuria as well. She denies flank pain. Vitals/I&O's: Vital Signs Temp Pulse Resp BP Pulse Ox 97.7 F L 84 18 135/65 H 94 04/03/20 09:18 04/03/20 09:18 04/03/20 09:18 04/03/20 09:18 04/03/20 09:18 Oxygen Flow Rate (L/min) 2 Oxygen Delivery Method Room Air Weight: 198 lb 3.129 oz Body Mass Index (BMI) 38.7 Intake and Output for Last 24 Hours 04/01/20 04/02/20 04/03/20 23:59 23:59 23:59 Intake Total 2049 1860.83 / 1860.83 Output Total 125 / 125 Balance 2049 1735.83 / 1735.83 General: Alert, Oriented x3, Cooperative HEENT: Atraumatic, PERRLA, EOMI, Normocephalic Neck: Supple, No JVD, Negative Carotid Bruits Lungs: Clear to auscultation, Normal air movement Cardiovascular: Regular rate, No murmurs Abdomen: Bowel Sounds Present, Soft, Non Tender Extremities: No edema, Capillary Refill Less than 3 Seconds Skin: No rashes, No breakdown Musculoskeletal: No Tenderness to Palpation of Joints or Extremities Neurological: Cranial nerves II-XII grossly intact Psych/Mental Status: Normal Affect, Appropriate, Alert and oriented to time, place, person, mood and affect Laboratory Results 04/02/20 15:52: WBC 15.4 H, RBC 4.11 L, Hgb 11.2 L, Hct 35.7 L, MCV 86.9, MCH 27.3, MCHC 31.4 L, RDW Std Deviation 52.4 H, RDW Coeff of Sal 16.4 H, Plt Count 236, MPV 9.8, Immature Gran % (Auto) 0.500, Neut % (Auto) 83.3 H, Lymph % (Auto) 8.8 L, Loving % (Auto) 7.2, Eos % (Auto) 0.1, Baso % (Auto) 0.1, Absolute Neuts (auto) 12.9 H, Absolute Lymphs (auto) 1.36, Nucleated RBC % 0 04/02/20 15:52: PT 12.9, INR 1.0, APTT 28.7 04/02/20 15:52: Sodium 136, Potassium 4.5, Chloride 104, Carbon Dioxide 24.0, Anion Gap 8, BUN 48 H, Creatinine 3.90 H, Estim Creat Clear Calc 11.22, Est GFR (MDRD) Af Amer 15 L, Est GFR (MDRD) Non-Af 12 L, BUN/Creatinine Ratio 12.3, Glucose 130 H, Calcium 7.9 L, Total Bilirubin 0.80, AST 32, ALT 28, Alkaline Phosphatase 160 H, Total Protein 7.0, Albumin 3.0 L, Globulin 4.0, Albumin/Globulin Ratio 0.8 L 04/02/20 15:52: Lactic Acid 1.0 04/02/20 15:59: Specimen Type ART, Sample Site R BRACHIAL, pH 7.36, Bicarbonate Actual 24.2, Total CO2 26, Base Excess -1, O2 Saturation 98, ABG pCO2 43.0, ABG pO2 100, O2 Delivery Device Nasal Can, Liter Flow 2.0, Blood Gas Notified Whom ED 04/02/20 16:35: Urine Color Ramona, Urine Clarity Sl. Cloudy, Urine pH 5.0, Ur Specific Brooks 1.025, Urine Protein 15 H, Urine Glucose (UA) Normal, Urine Ketones 5 H, Urine Occult Blood 10 H, Urine Nitrite Negative, Urine Bilirubin 6 H, Urine Urobilinogen 4 H, Ur Leukocyte Esterase 25 H, Urine RBC 0-5 SEEN, Urine WBC 5-10 SEEN, Ur Squamous Epith Cells 5-10 SEEN, Uric Acid Crystals 1+, Amorphous Sediment 2+, Urine Bacteria 2+, Hyaline Casts 10-25 SEEN, Urine Mucus 1+ 04/02/20 22:50: Urine Opiates Screen POSITIVE H, Urine Methadone Screen NEGATIVE, Ur Barbiturates Screen NEGATIVE, Ur Phencyclidine Scrn NEGATIVE, Ur Amphetamines Screen NEGATIVE, U Methamphetamin-MDMA NEGATIVE, U Benzodiazepines Scrn NEGATIVE, Urine Cocaine Screen NEGATIVE, U Cannabinoids Screen NEGATIVE, Ur Drug Screen Comment 04/03/20 05:55: Sodium 139, Potassium 4.4, Chloride 110 H, Carbon Dioxide 26.0, Anion Gap 3 L, BUN 39 H, Creatinine 1.99 H, Estim Creat Clear Calc 19.97, Est GFR (MDRD) Af Amer 32 L, Est GFR (MDRD) Non-Af 27 L, BUN/Creatinine Ratio 19.6, Glucose 92, Calcium 7.8 L Current Medications Aspirin (Aspirin, Baby) 81 mg PO DAILY@0800 [facility] Last Admin: 04/03/20 07:58 Dose: 81 mg Documented by: Clopidogrel Bisulfate (Plavix) 75 mg PO DAILY [facility] Last Admin: 04/03/20 09:20 Dose: 75 mg Documented by: Ezetimibe (Zetia) 10 mg PO DAILY [facility] Last Admin: 04/03/20 09:20 Dose: 10 mg Documented by: Heparin Sodium (Porcine) (Heparin Na) 5,000 unit SC Q12 [facility] Last Admin: 04/03/20 09:20 Dose: 5,000 unit Documented by: Sodium Chloride () 1,000 mls @ 175 mls/hr IV .[id number] [facility] Last Admin: 04/03/20 09:19 Dose: 175 mls/hr Documented by: Ceftriaxone Sodium (Rocephin) 1 gm in 50 mls @ 100 mls/hr IV Q24 [facility] Last Infusion: 04/03/20 10:42 Dose: Infused Documented by: Sodium Chloride () 250 mls @ 15 mls/hr IV .[id number] PRN PRN Reason: Saline Flush Sodium Chloride () 250 mls @ 15 mls/hr IV .[id number] PRN PRN Reason: Additional IVPB Infusion Nystatin (Mycostatin Powder) 1 applic TOPICAL TID [facility]; Protocol Last Admin: 04/03/20 05:53 Dose: 1 applicatio Documented by: Ondansetron HCl (Zofran) 4 mg IV Q6H PRN PRN PRN Reason: NAUSEA/VOMITING Last Admin: 04/03/20 09:25 Dose: 4 mg Documented by: Pantoprazole Sodium (Protonix) 40 mg PO DAILY [facility] Last Admin: 04/03/20 09:20 Dose: 40 mg Documented by: Pravastatin Sodium (Pravachol) 20 mg PO QHS [facility] Last Admin: 04/02/20 22:58 Dose: Not Given Documented by: Sodium Chloride () 10 - 40 ml IV UD PRN PRN Reason: SALINE FLUSH Last Admin: 04/03/20 09:26 Dose: 10 ml Documented by: STROKE Vital Signs/Narrative: Vital Signs Temp Pulse Resp BP Pulse Ox 04/03/20 09:18 97.7 F L 84 18 135/65 H 94 Medical Necessity - Tobacco Use Smoking Status: Current every day smoker Tobacco Use: Cigarettes Assessment/Plan All Active Problems Head injury (Acute) Ataxia (Acute) Fall (Acute) Balance problem (Acute) Asymptomatic coronary heart disease (Acute) Dysrhythmia, cardiac (Acute) History of hypertension (Acute) Neck mass (Acute) Acute kidney injury (Acute) Altered mental status (Acute) SIRS (systemic inflammatory response syndrome) (Acute) Opiate overdose (Acute) Sepsis (Acute) UTI (urinary tract infection) (Acute) DDD (degenerative disc disease) (Acute) Acute encephalopathy (Acute) 1. Acute encephalopathy probably a combination of metabolic and toxic due to UTI, FARZANA, and dilaudid. Continue to hold dilaudid. She states this same thing happened at [place] where she was given dilaudid and required narcan. Encepahlopathy appears resolved at this time. 2. Acute sepsis 2/2 recurrent UTI - continue rocephin. cultures pending. Obtain renal/bladder US. 3. FARZAAN - Improved. suspect 2/2 dehydration + bactrim use. At admission held bactrim, PAL, and NSAIDs. 4. Chronic opiate dependence - follows pain management Dr. Hernandez in [place]. Will need follow up as it may no longer be appropriate to take dilaudid at home given her two recent overdoses requiring narcann. 5. Hx CAD - aspirin, coreg, plavix, statin, verapamil? 6. GERD - ppi DVT ppx: heparin This patient was seen by Shantanu Eisenberg PA-C under the supervision of Dr. Pierce <[place] - Last Filed: 04/03/20 15:29> Vitals/I&O's: Vital Signs Temp Pulse Resp BP Pulse Ox 98.1 F 84 18 158/81 H 94 04/03/20 13:29 04/03/20 13:29 04/03/20 13:29 04/03/20 13:29 04/03/20 13:29 Oxygen Flow Rate (L/min) 2 Oxygen Delivery Method Room Air Weight: 89.9 kg Body Mass Index (BMI) 38.7 Intake and Output for Last 24 Hours 04/01/20 04/02/20 04/03/20 23:59 23:59 23:59 Intake Total 2049 3051.66 / 3051.66 Output Total 125 / 125 Balance 2049 2926.66 / 2926.66 Laboratory Results 04/02/20 15:52: WBC 15.4 H, RBC 4.11 L, Hgb 11.2 L, Hct 35.7 L, MCV 86.9, MCH 27.3, MCHC 31.4 L, RDW Std Deviation 52.4 H, RDW Coeff of Sal 16.4 H, Plt Count 236, MPV 9.8, Immature Gran % (Auto) 0.500, Neut % (Auto) 83.3 H, Lymph % (Auto) 8.8 L, Loving % (Auto) 7.2, Eos % (Auto) 0.1, Baso % (Auto) 0.1, Absolute Neuts (auto) 12.9 H, Absolute Lymphs (auto) 1.36, Nucleated RBC % 0 04/02/20 15:52: PT 12.9, INR 1.0, APTT 28.7 04/02/20 15:52: Sodium 136, Potassium 4.5, Chloride 104, Carbon Dioxide 24.0, Anion Gap 8, BUN 48 H, Creatinine 3.90 H, Estim Creat Clear Calc 11.22, Est GFR (MDRD) Af Amer 15 L, Est GFR (MDRD) Non-Af 12 L, BUN/Creatinine Ratio 12.3, Glucose 130 H, Calcium 7.9 L, Total Bilirubin 0.80, AST 32, ALT 28, Alkaline Phosphatase 160 H, Total Protein 7.0, Albumin 3.0 L, Globulin 4.0, Albumin/Globulin Ratio 0.8 L 04/02/20 15:52: Lactic Acid 1.0 04/02/20 15:59: Specimen Type ART, Sample Site R BRACHIAL, pH 7.36, Bicarbonate Actual 24.2, Total CO2 26, Base Excess -1, O2 Saturation 98, ABG pCO2 43.0, ABG pO2 100, O2 Delivery Device Nasal Can, Liter Flow 2.0, Blood Gas Notified Whom Quentin Can MD 04/02/20 16:35: Urine Color Ramona, Urine Clarity Sl. Cloudy, Urine pH 5.0, Ur Specific Brooks 1.025, Urine Protein 15 H, Urine Glucose (UA) Normal, Urine Ketones 5 H, Urine Occult Blood 10 H, Urine Nitrite Negative, Urine Bilirubin 6 H, Urine Urobilinogen 4 H, Ur Leukocyte Esterase 25 H, Urine RBC 0-5 SEEN, Urine WBC 5-10 SEEN, Ur Squamous Epith Cells 5-10 SEEN, Uric Acid Crystals 1+, Amorphous Sediment 2+, Urine Bacteria 2+, Hyaline Casts 10-25 SEEN, Urine Mucus 1+ 04/02/20 22:50: Urine Opiates Screen POSITIVE H, Urine Methadone Screen NEGATIVE, Ur Barbiturates Screen NEGATIVE, Ur Phencyclidine Scrn NEGATIVE, Ur Amphetamines Screen NEGATIVE, U Methamphetamin-MDMA NEGATIVE, U Benzodiazepines Scrn NEGATIVE, Urine Cocaine Screen NEGATIVE, U Cannabinoids Screen NEGATIVE, Ur Drug Screen Comment 04/03/20 05:55: Sodium 139, Potassium 4.4, Chloride 110 H, Carbon Dioxide 26.0, Anion Gap 3 L, BUN 39 H, Creatinine 1.99 H, Estim Creat Clear Calc 19.97, Est GFR (MDRD) Af Amer 32 L, Est GFR (MDRD) Non-Af 27 L, BUN/Creatinine Ratio 19.6, Glucose 92, Calcium 7.8 L Current Medications Aspirin (Aspirin, Baby) 81 mg PO DAILY@0800 [facility] Last Admin: 04/03/20 07:58 Dose: 81 mg Documented by: Clonidine (Catapres) 0.1 mg PO Q8H PRN PRN PRN Reason: RESTLESSNESS Clopidogrel Bisulfate (Plavix) 75 mg PO DAILY [facility] Last Admin: 04/03/20 09:20 Dose: 75 mg Documented by: Dicyclomine HCl (Bentyl) 20 mg PO Q6H PRN PRN PRN Reason: Abdominal Discomfort Last Admin: 04/03/20 14:41 Dose: 20 mg Documented by: Ezetimibe (Zetia) 10 mg PO DAILY [facility] Last Admin: 04/03/20 09:20 Dose: 10 mg Documented by: Gabapentin (Neurontin) 300 mg PO Q8H PRN PRN PRN Reason: moderate to severe anxiety Heparin Sodium (Porcine) (Heparin Na) 5,000 unit SC Q12 [facility] Last Admin: 04/03/20 09:20 Dose: 5,000 unit Documented by: Hydromorphone HCl (Dilaudid Tablet) 4 mg PO TID [facility] Last Admin: 04/03/20 14:41 Dose: 4 mg Documented by: Hydroxyzine Pamoate (Vistaril Pamoate Capsule) 50 mg PO Q6H PRN PRN PRN Reason: mild anxiety Last Admin: 04/03/20 14:41 Dose: 50 mg Documented by: Sodium Chloride () 1,000 mls @ 175 mls/hr IV .[id number] [facility] Last Admin: 04/03/20 14:45 Dose: 175 mls/hr Documented by: Ceftriaxone Sodium (Rocephin) 1 gm in 50 mls @ 100 mls/hr IV Q24 [facility] Last Infusion: 04/03/20 10:42 Dose: Infused Documented by: Sodium Chloride () 250 mls @ 15 mls/hr IV .[id number] PRN PRN Reason: Saline Flush Sodium Chloride () 250 mls @ 15 mls/hr IV .[id number] PRN PRN Reason: Additional IVPB Infusion Loperamide HCl (Imodium) 2 mg PO Q4H PRN PRN PRN Reason: LOOSE STOOLS Lorazepam (Ativan) 0.25 mg PO Q12H PRN [facility] Methocarbamol (Methocarbamol) 1,500 mg PO Q6H PRN PRN PRN Reason: MUSCLE SPASM Nystatin (Mycostatin Powder) 1 applic TOPICAL TID [facility]; Protocol Last Admin: 04/03/20 14:41 Dose: 1 applicatio Documented by: Ondansetron HCl (Zofran) 4 mg IV Q6H PRN PRN PRN Reason: NAUSEA/VOMITING Last Admin: 04/03/20 09:25 Dose: 4 mg Documented by: Ondansetron HCl (Zofran) 8 mg PO Q8H PRN PRN PRN Reason: NAUSEA Pantoprazole Sodium (Protonix) 40 mg PO DAILY [facility] Last Admin: 04/03/20 09:20 Dose: 40 mg Documented by: Pravastatin Sodium (Pravachol) 20 mg PO QHS [facility] Last Admin: 04/02/20 22:58 Dose: Not Given Documented by: Promethazine HCl (Phenergan Tablet) 12.5 mg PO Q4H PRN PRN PRN Reason: NAUSEA/VOMITING Last Admin: 04/03/20 14:48 Dose: 12.5 mg Documented by: Sodium Chloride () 10 - 40 ml IV UD PRN PRN Reason: SALINE FLUSH Last Admin: 04/03/20 09:26 Dose: 10 ml Documented by: Trazodone HCl (Desyrel) 100 mg PO QHS PRN PRN PRN Reason: INSOMNIA STROKE Vital Signs/Narrative: Vital Signs Temp Pulse Resp BP Pulse Ox 04/03/20 13:29 98.1 F 84 18 158/81 H 94 Assessment/Plan This patient was seen in conjunction with GORDON Torres. I have independently interviewed and examined the patient and reviewed pertinent historical, laboratory, and other data. Please refer to GORDON Torres note for his patient's presentation, findings, and recommendations. I have reviewed and his note and concur with his documentation Patient was seen and examined. Complains of right lower quadrant pain. Denied any fever or chills. She is alert oriented. Ultrasound of the bladder and kidneys are pending. Physical Exam: Gen: Looks chronically unwell, not pale, not jaundiced CVS:HS I +II, regular, no murmurs RESP: Clinically clear GI: BS present and normal, soft, tenderness over the right lower quadrant, no palpable organs EXT:No edema ASSESSMENT: 1. Acute metabolic/toxic encephalopathy, resolved 2. Acute UTI 3. FARZANA, prerenal secondary to dehydration 4. Chronic opiate dependency 5. CAD 6. GERD Plan: Continue on low-dose chronic opiates and benzos to prevent acute withdrawal Follow-up on ultrasound of the kidneys and bladder May need CT of the abdomen and pelvis if right lower quadrant pain persists Continue on IV ceftriaxone, follow-up on urine cultures Shantanu LEYVA discussed with addiction medicine?Dr. pemberton, recommended starting low on chronic benzos and opiate withdrawal. Possible DC in a.m. Inpatient E&M: 56571 Subs Hosp L2
[2020-04-03] MEDS: hydrOXYzine PAM 25 MG Capsule 50 MG PO (14:41)
[2020-04-03] MEDS: HYDROmorphone 2 MG TABLET 4 MG PO ×2 (14:41→22:33)
[2020-04-03] MEDS: Dicyclomine 10 MG Capsule 20 MG PO (14:41)
[2020-04-03] MEDS: proMETHazine 25 MG Tablet 12.5 MG PO (14:48)
[2020-04-03] MEDS: Pravastatin 20 MG Tablet PO (22:33)
[2020-04-03] MEDS: Ondansetron 8 MG Tablet PO (22:38)
[2020-04-03] MEDS: cloNIDine HCl 0.1 MG Tablet PO (22:38)
--- NOTE | 2020-04-03 23:10 | EKG12_ITS ---
Test Reason : CP ALL DAY Blood Pressure : / mmHG Vent. Rate : 071 BPM Atrial Rate : 071 BPM P-R Int : 192 ms QRS Dur : 120 ms QT Int : 418 ms P-R-T Axes : 052 233 006 degrees QTc Int : 454 ms Atrial-sensed ventricular-paced rhythm Biventricular pacemaker detected Abnormal ECG When compared with ECG of 02-APR-2020 15:19, MANUAL COMPARISON REQUIRED, DATA IS UNCONFIRMED Confirmed by TUNDE CAMPBELL, COLT ([id number]), book editor SANFORD RHODES ([id number]) on 04/09/2020 1:30:49 PM Referred By: DR HESTER Confirmed By:SOPHIA GRIFFITHS MD
[2020-04-04] VITALS (8 sets, daily range): BP systolic 142–167; BP diastolic 70–100; PULSE 57–81; RESP 16–19; TEMP 36.3–36.7; O2SAT 93–97
[2020-04-04] MEDS: HYDROmorphone 2 MG TABLET 4 MG PO ×2 (05:50→15:27)
[2020-04-04 06:51] LABS: Absolute Lymphocyte Count 1.01 X10^3/uL (0.83-4.51); Basophil# 0.02 X10^3/uL; Basophil% 0.3 % (0-1); Eosinophil# 0.35 X10^3/uL; Eosinophils% 5.6 % (0-5); Hemoglobin 9.8 g/dL (12.0-15.0); Lymphocyte # 1.01 X10^3/ul (4.0); Lymphocyte % 16.3 % (19-41); Mean Corp Hgb Conc 30.6 g/dL (32-36); Mean Corpuscular Hgb 26.8 pg (27.0-32.0); Mean Corpuscular Volume 87.7 fL (81-99); Mean Platelet Vol. 9.6 fl (6.2-12.0); Monocyte# 0.75 X10^3/uL; Monocyte% 12.1 % (0-10); NRBC Flagged by Analyzer 0 % (0-5); Neutrophil # 4.03 X10^3/uL (2.7-7.7); Neutrophil % 64.9 % (47-70); Platelet Count 170 K/mm3 (150-450); RBC Distribution Width CV 15.8 % (11.6-14.6); RBC Distribution Width SD 50.4 fl (35.1-43.9); Red Blood Count 3.65 M/mm3 (4.2-5.4); White Blood Count 6.2 K/mm3 (4.4-11.0)
[2020-04-04 07:32] LABS: Anion Gap 4 (5-15); BUN 23 mg/dL (7-18); BUN/Creat Ratio 23.8 RATIO (10-20); Calcium,Total 8.6 mg/dL (8.5-10.1); Chloride 110 mmol/L (98-107); Creatinine, Serum 0.97 mg/dL (0.55-1.02); EST Glomerular Filtration Rate 61 mL/min (>60); Est Glom Filt Rate - Afr Amer 74 mL/min (>60); Estimated Creatinine Clearance 40.98 ml/min; Glucose 82 mg/dL (74-106); Potassium 4.7 mmol/L (3.5-5.1); Sodium Level 141 mmol/L (136-145)
[2020-04-04] MEDS: Aspirin 81 MG TAB.CHEW PO (09:17)
[2020-04-04] MEDS: Pantoprazole Sodium 40 MG Tablet PO (09:17)
[2020-04-04] MEDS: Ezetimibe 10 MG Tablet PO (09:17)
[2020-04-04] MEDS: Clopidogrel Bisulfate 75 MG Tablet PO (09:17)
[2020-04-04] MEDS: Ondansetron 8 MG Tablet PO (10:35)
[2020-04-04] MEDS: Heparin Injection (Vial) 5,000 UNIT/ML VIAL 5000 UNIT SC (10:36)
--- NOTE | 2020-04-04 11:36 | DCINST_ITS ---
- Discharge Diagnoses Current Active Problems: Current Active and Chronic Problems Acute kidney injury (Acute) Altered mental status (Acute) SIRS (systemic inflammatory response syndrome) (Acute) Opiate overdose (Acute) Sepsis (Acute) UTI (urinary tract infection) (Acute) DDD (degenerative disc disease) (Acute) Acute encephalopathy (Acute) You will use the following diet at home:: Cardiac Your food should be the consistency of: Regular Your liquids should be the consistency of: Regular/Thin Discharge Activity: Return to Normal Activity, May not drive while taking narcotic pain medications. Additional Instructions: Do not take dilaudid if lethargic. Allergies/Adverse Reactions: Allergies acetaminophen [From Darvocet-N] Allergy (Verified 04/02/20 15:01) Unknown amoxicillin Allergy (Verified 04/02/20 15:01) Unknown codeine Allergy (Verified 04/02/20 15:01) Unknown fentanyl Allergy (Verified 04/02/20 15:01) Unknown hydrocodone bitartrate [From Vicodin] Allergy (Verified 04/02/20 15:01) Unknown Iodinated Contrast Media [Iodinated Contrast Media - IV Dye] Allergy (Verified 04/02/20 15:01) Unknown meperidine [From Demerol] Allergy (Verified 04/02/20 15:01) Unknown morphine Allergy (Verified 04/02/20 15:01) Unknown oxycodone HCl [From Percocet] Allergy (Verified 04/02/20 15:01) Unknown Penicillins [PCN] Allergy (Verified 04/02/20 15:01) Hives promethazine HCl [From Phenergan] Allergy (Verified 04/02/20 15:01) Unknown propoxyphene napsylate [From Darvocet-N] Allergy (Verified 04/02/20 15:01) Unknown MYCINS Allergy (Uncoded 04/02/20 15:01) Unknown Medications to take at Discharge Aspirin [Aspirin, Baby] 81 mg PO DAILY@0800 05/29/15 Carvedilol [Coreg (Beta Ana)] 3.125 mg PO BID 05/29/15 Famotidine [Pepcid] 20 mg PO BID 05/29/15 Fluticasone/Salmeterol [Advair 250/50 Mcg Diskus] 1 puff INHALATION BID 05/29/15 Lisinopril [Zestril] 5 mg PO DAILY 05/29/15 Lorazepam [Ativan] 1 mg PO BID 05/29/15 Ondansetron [Zofran Odt] 4 mg PO Q8H PRN PRN 05/29/15 Gabapentin [Neurontin] 400 mg PO QHS 11/02/16 Hydromorphone HCl [Dilaudid] 12 mg PO QHS 11/02/16 Clopidogrel Bisulfate [Plavix] 75 mg PO DAILY 10/16/17 Hydromorphone HCl [Dilaudid] 8 mg PO BID PRN 10/16/17 Ezetimibe [Zetia] 10 mg PO DAILY 04/02/20 Pantoprazole Sodium [Protonix] 40 mg PO DAILY 04/02/20 Pravastatin [Pravachol] 20 mg PO QHS 04/02/20 Cefdinir [Omnicef [equiv]] 300 mg PO Q12 #10 cap 04/04/20 The following prescriptions were given: Cefdinir [Omnicef [equiv]] 300 mg PO Q12 #10 cap Transmission Status: Pending to [facility]/pharmacy #[id number] Primary Care Physician: Elizabeth Persaud DO [Primary Care Provider] - Please follow up with your Primary Care Physician in: 1-2 weeks Test Results: Test results from this visit will be discussed in further detail at your follow- up appointment, if applicable. Please Follow Up With: Christine Nugent MD When: 2 weeks Please Follow Up With: Pain management When: 2 weeks Proposed Discharge Date: 04/04/20
[2020-04-04] MEDS: proMETHazine 25 MG Tablet 12.5 MG PO (13:02)
[2020-04-04] MEDS: Dicyclomine 10 MG Capsule 20 MG PO (13:02)
--- NOTE | 2020-04-04 13:24 | DS.PCM_ITS ---
<Shantanu Eisenberg - Last Filed: 04/04/20 13:24> Discharge Date and Diagnosis - Problem List Patient Problems: Active and Suspected Problems Acute kidney injury (Acute) Altered mental status (Acute) SIRS (systemic inflammatory response syndrome) (Acute) Opiate overdose (Acute) Sepsis (Acute) UTI (urinary tract infection) (Acute) DDD (degenerative disc disease) (Acute) Acute encephalopathy (Acute) Date of Admission: 04/02/20 Date of Discharge: 04/04/20 - Primary Discharge Diagnosis Acute Problems: Active Problems Acute toxic and metabolic encephalopathy secondary to Dilaudid overdose and acute kidney injury, sepsis Sepsis secondary to recurrent urinary tract infection FARZANA secondary to dehydration and Bactrim use Chronic opiate dependence secondary to chronic back pain History of CAD GERD Hospital Course and Treatment Imaging Results: Imaging: RAD/Chest 1 View (Portable) IMPRESSION: No acute process CT/Brain/Head without Contrast IMPRESSION: No demonstrated acute or significant intracranial process. US/Kidney and Bladder IMPRESSION: Small bilateral renal cysts. Operations: None Procedures: None Summary of Care Provided: Hospital course: The patient is a 64 year old F past medical history as above notably with recurrent urinary tract infections, who presented to the emergency room with altered mental status. About 1 month prior to the patient had been taking outpatient antibiotics for urinary tract infection and was subsequently admitted to [facility] and treated for urinary tract infection. She was discharged home on Omnicef. She had recurrent issues and was placed on sulfa as an outpatient for recurrent urinary tract infection. The patient was found the day of presentation by her unconscious next to the bed nonresponsive. She was brought to the emergency room found to have evidence of sepsis secondary to urinary tract infection, she was nonresponsive, she had acute kidney injury. She was given Narcan and had good response and became responsive. She takes heavy doses of oral Dilaudid prescribed by pain management at home. The patient was admitted to the PCU and placed on telemetry. She was started on Rocephin for urinary tract infection and her sulfa and other nephrotoxins were held. The patient responded well to therapy. She was transitioned to cefdinir which she will complete a 7-day course of. She had no significant growth on culture however this may be due to her being on antibiotics at the time of culture. With recurrent urinary tract infections I recommended that she follow-up with urology in 1 to 2 weeks. She should also follow-up with her PCP in 1 to 2 weeks. She will also need to follow-up with her pain management doctor in 2 weeks as this is the second time in the past month that she reports Dilaudid o verdose. She was discharged home in stable condition. This patient was seen by Shantanu Eisenberg PA-C under the supervision of Doctor Mark. [] Patient Problems: Active and Suspected Problems Acute kidney injury (Acute) Altered mental status (Acute) SIRS (systemic inflammatory response syndrome) (Acute) Opiate overdose (Acute) Sepsis (Acute) UTI (urinary tract infection) (Acute) DDD (degenerative disc disease) (Acute) Acute encephalopathy (Acute) - Physical Exam Vitals/I&O's: Vital Signs Temp Pulse Resp BP Pulse Ox 97.8 F 67 18 151/99 H 96 04/04/20 09:20 04/04/20 09:20 04/04/20 09:20 04/04/20 09:20 04/04/20 09:20 Oxygen Flow Rate (L/min) 2 Oxygen Delivery Method Room Air Weight: 198 lb 3.129 oz Body Mass Index (BMI) 38.7 Intake and Output for Last 24 Hours 04/02/20 04/03/20 04/04/20 23:59 23:59 23:59 Intake Total 2049 3677.91 / 3677.91 Output Total 125 / 125 Balance 2049 3552.91 / 3552.91 General: Alert, Oriented x3, Cooperative HEENT: Atraumatic, PERRLA, EOMI, Normocephalic Neck: Supple, No JVD, Negative Carotid Bruits Lungs: Clear to auscultation, Normal air movement Cardiovascular: Regular rate, No murmurs Abdomen: Bowel Sounds Present, Soft, Non Tender Extremities: No edema, Capillary Refill Less than 3 Seconds Skin: No rashes, No breakdown Musculoskeletal: No Tenderness to Palpation of Joints or Extremities Neurological: Cranial nerves II-XII grossly intact Psych/Mental Status: Normal Affect, Appropriate, Alert and oriented to time, place, person, mood and affect Microbiology Past 72 Hours 04/02/20 15:15 Blood Culture (Wb) - Left Hand Blood Culture - Preliminary No growth in 48 hours. 04/02/20 15:15 Blood Culture (Wb) - Right Hand Blood Culture - Preliminary No growth in 48 hours. 04/02/20 16:35 Urine Catheter - Catheter Urine Culture - Preliminary Culture exhibits no growth. Laboratory Results 04/04/20 06:30: WBC 6.2, RBC 3.65 L, Hgb 9.8 L, Hct 32.0 L, MCV 87.7, MCH 26.8 L , MCHC 30.6 L, RDW Std Deviation 50.4 H, RDW Coeff of Sal 15.8 H, Plt Count 170, MPV 9.6, Immature Gran % (Auto) 0.800, Neut % (Auto) 64.9, Lymph % (Auto) 16.3 L, [place] % (Auto) 12.1 H, Eos % (Auto) 5.6 H, Baso % (Auto) 0.3, Absolute Neuts (auto) 4.0, Absolute Lymphs (auto) 1.01, Nucleated RBC % 0 04/04/20 06:30: Sodium 141, Potassium 4.7, Chloride 110 H, Carbon Dioxide 27.0, Anion Gap 4 L, BUN 23 H, Creatinine 0.97, Estim Creat Clear Calc 40.98, Est GFR (MDRD) Af Amer 74, Est GFR (MDRD) Non-Af 61, BUN/Creatinine Ratio 23.8 H, Glucose 82, Calcium 8.6 Current Medications Aspirin (Aspirin, Baby) 81 mg PO DAILY@0800 [facility] Last Admin: 04/04/20 09:17 Dose: 81 mg Documented by: Cefdinir (Omnicef [Equiv]) 300 mg PO Q12 [facility] Last Admin: 04/04/20 11:33 Dose: Not Given Documented by: Clonidine (Catapres) 0.1 mg PO Q8H PRN PRN PRN Reason: RESTLESSNESS Last Admin: 04/03/20 22:38 Dose: 0.1 mg Documented by: Clopidogrel Bisulfate (Plavix) 75 mg PO DAILY [facility] Last Admin: 04/04/20 09:17 Dose: 75 mg Documented by: Dicyclomine HCl (Bentyl) 20 mg PO Q6H PRN PRN PRN Reason: Abdominal Discomfort Last Admin: 04/04/20 13:02 Dose: 20 mg Documented by: Ezetimibe (Zetia) 10 mg PO DAILY [facility] Last Admin: 04/04/20 09:17 Dose: 10 mg Documented by: Gabapentin (Neurontin) 300 mg PO Q8H PRN PRN PRN Reason: moderate to severe anxiety Heparin Sodium (Porcine) (Heparin Na) 5,000 unit SC Q12 [facility] Last Admin: 04/04/20 10:36 Dose: 5,000 unit Documented by: Hydromorphone HCl (Dilaudid Tablet) 4 mg PO TID [facility] Last Admin: 04/04/20 05:50 Dose: 4 mg Documented by: Hydroxyzine Pamoate (Vistaril Pamoate Capsule) 50 mg PO Q6H PRN PRN PRN Reason: mild anxiety Last Admin: 04/03/20 14:41 Dose: 50 mg Documented by: Sodium Chloride () 1,000 mls @ 175 mls/hr IV .[id number] [facility] Last Admin: 04/04/20 07:58 Dose: Not Given Documented by: Sodium Chloride () 250 mls @ 15 mls/hr IV .[id number] PRN PRN Reason: Saline Flush Sodium Chloride () 250 mls @ 15 mls/hr IV .[id number] PRN PRN Reason: Additional IVPB Infusion Loperamide HCl (Imodium) 2 mg PO Q4H PRN PRN PRN Reason: LOOSE STOOLS Lorazepam (Ativan) 0.25 mg PO Q12H PRN [facility] Methocarbamol (Methocarbamol) 1,500 mg PO Q6H PRN PRN PRN Reason: MUSCLE SPASM Nystatin (Mycostatin Powder) 1 applic TOPICAL TID [facility]; Protocol Last Admin: 04/04/20 05:48 Dose: Not Given Documented by: Ondansetron HCl (Zofran) 4 mg IV Q6H PRN PRN PRN Reason: NAUSEA/VOMITING Last Admin: 04/03/20 09:25 Dose: 4 mg Documented by: Ondansetron HCl (Zofran) 8 mg PO Q8H PRN PRN PRN Reason: NAUSEA Last Admin: 04/04/20 10:35 Dose: 8 mg Documented by: Pantoprazole Sodium (Protonix) 40 mg PO DAILY [facility] Last Admin: 04/04/20 09:17 Dose: 40 mg Documented by: Pravastatin Sodium (Pravachol) 20 mg PO QHS [facility] Last Admin: 04/03/20 22:33 Dose: 20 mg Documented by: Promethazine HCl (Phenergan Tablet) 12.5 mg PO Q4H PRN PRN PRN Reason: NAUSEA/VOMITING Last Admin: 04/04/20 13:02 Dose: 12.5 mg Documented by: Sodium Chloride () 10 - 40 ml IV UD PRN PRN Reason: SALINE FLUSH Last Admin: 04/03/20 09:26 Dose: 10 ml Documented by: Trazodone HCl (Desyrel) 100 mg PO QHS PRN PRN PRN Reason: INSOMNIA Discharge Diet: Low fat/ Low Cholesterol, 2000 mg Sodium Diet Discharge Activity: Return to Normal Activity, May not drive while taking narcotic pain medications. Home Medications: Medications to take at Discharge Aspirin [Aspirin, Baby] 81 mg PO DAILY@0800 05/29/15 Carvedilol [Coreg (Beta Ana)] 3.125 mg PO BID 05/29/15 Famotidine [Pepcid] 20 mg PO BID 05/29/15 Fluticasone/Salmeterol [Advair 250/50 Mcg Diskus] 1 puff INHALATION BID 05/29/15 Lisinopril [Zestril] 5 mg PO DAILY 05/29/15 Lorazepam [Ativan] 1 mg PO BID 05/29/15 Ondansetron [Zofran Odt] 4 mg PO Q8H PRN PRN 05/29/15 Gabapentin [Neurontin] 400 mg PO QHS 11/02/16 Hydromorphone HCl [Dilaudid] 12 mg PO QHS 11/02/16 Clopidogrel Bisulfate [Plavix] 75 mg PO DAILY 10/16/17 Hydromorphone HCl [Dilaudid] 8 mg PO BID PRN 10/16/17 Ezetimibe [Zetia] 10 mg PO DAILY 04/02/20 Pantoprazole Sodium [Protonix] 40 mg PO DAILY 04/02/20 Pravastatin [Pravachol] 20 mg PO QHS 04/02/20 Cefdinir [Omnicef [equiv]] 300 mg PO Q12 #10 cap 04/04/20 Following Prescriptions Were Given to Patient: Cefdinir [Omnicef [equiv]] 300 mg PO Q12 #10 cap Transmission Status: Received by [facility]/pharmacy #[id number] Primary Care Physician: Elizabeth Persaud DO [Primary Care Provider] - Please follow up with your Primary Care Physician in: 1-2 weeks Please Follow Up With: Christine Nugent MD When: 2 weeks Please Follow Up With: Pain management When: 2 weeks Please Follow Up With: Elizabeth Persaud DO Disposition: Home Minutes spent on discharge:: 35 Patient Condition:: Stable Medical Necessity - Tobacco Use Smoking Status: Current every day smoker Tobacco Use: Cigarettes Meaningful Use Info Meaningful Use Diagnoses (Choose all that apply): None applicable <Juan Flores - Last Filed: 04/04/20 13:31> Discharge Date and Diagnosis - Primary Discharge Diagnosis Acute Problems: Active Problems Acute kidney injury (Acute) Altered mental status (Acute) SIRS (systemic inflammatory response syndrome) (Acute) Opiate overdose (Acute) Sepsis (Acute) UTI (urinary tract infection) (Acute) DDD (degenerative disc disease) (Acute) Acute encephalopathy (Acute) Hospital Course and Treatment Summary of Care Provided: This patient was seen in conjunction with Shantanu Eisenberg PA-C . I have independently interviewed and examined the patient and reviewed pertinent historical, laboratory, and other data. Please refer to Shantanu Eisenberg PA-C note for details of this patient's presentation, findings, and recommendations. I have reviewed Shantanu Eisenberg PA-C note and concur with documented findings. In brief, patient 64-year-old lady admitted with altered mental status. An assessment of acute metabolic encephalopathy due to combination of acute kidney injury sepsis UTI as well as medication induced encephalopathy made admitted to a monitored bed for further management Hospital course; as documented above - Physical Exam Vitals/I&O's: Vital Signs Temp Pulse Resp BP Pulse Ox 97.8 F 67 18 151/99 H 96 04/04/20 09:20 04/04/20 09:20 04/04/20 09:20 04/04/20 09:20 04/04/20 09:20 Oxygen Flow Rate (L/min) 2 Oxygen Delivery Method Room Air Weight: 89.9 kg Body Mass Index (BMI) 38.7 Intake and Output for Last 24 Hours 04/02/20 04/03/20 04/04/20 23:59 23:59 23:59 Intake Total 2049 3677.91 / 3677.91 20 / 20 Output Total 125 / 125 Balance 2049 3552.91 / 3552.91 Microbiology Past 72 Hours 04/02/20 15:15 Blood Culture (Wb) - Left Hand Blood Culture - Preliminary No growth in 48 hours. 04/02/20 15:15 Blood Culture (Wb) - Right Hand Blood Culture - Preliminary No growth in 48 hours. 04/02/20 16:35 Urine Catheter - Catheter Urine Culture - Preliminary Culture exhibits no growth. Laboratory Results 04/04/20 06:30: WBC 6.2, RBC 3.65 L, Hgb 9.8 L, Hct 32.0 L, MCV 87.7, MCH 26.8 L , MCHC 30.6 L, RDW Std Deviation 50.4 H, RDW Coeff of Sal 15.8 H, Plt Count 170, MPV 9.6, Immature Gran % (Auto) 0.800, Neut % (Auto) 64.9, Lymph % (Auto) 16.3 L , [place] % (Auto) 12.1 H, Eos % (Auto) 5.6 H, Baso % (Auto) 0.3, Absolute Neuts (auto) 4.0, Absolute Lymphs (auto) 1.01, Nucleated RBC % 0 04/04/20 06:30: Sodium 141, Potassium 4.7, Chloride 110 H, Carbon Dioxide 27.0, Anion Gap 4 L, BUN 23 H, Creatinine 0.97, Estim Creat Clear Calc 40.98, Est GFR (MDRD) Af Amer 74, Est GFR (MDRD) Non-Af 61, BUN/Creatinine Ratio 23.8 H, Glucose 82, Calcium 8.6 Current Medications Aspirin (Aspirin, Baby) 81 mg PO DAILY@0800 [facility] Last Admin: 04/04/20 09:17 Dose: 81 mg Documented by: Cefdinir (Omnicef [Equiv]) 300 mg PO Q12 [facility] Last Admin: 04/04/20 11:33 Dose: Not Given Documented by: Clonidine (Catapres) 0.1 mg PO Q8H PRN PRN PRN Reason: RESTLESSNESS Last Admin: 04/03/20 22:38 Dose: 0.1 mg Documented by: Clopidogrel Bisulfate (Plavix) 75 mg PO DAILY [facility] Last Admin: 04/04/20 09:17 Dose: 75 mg Documented by: Dicyclomine HCl (Bentyl) 20 mg PO Q6H PRN PRN PRN Reason: Abdominal Discomfort Last Admin: 04/04/20 13:02 Dose: 20 mg Documented by: Ezetimibe (Zetia) 10 mg PO DAILY [facility] Last Admin: 04/04/20 09:17 Dose: 10 mg Documented by: Gabapentin (Neurontin) 300 mg PO Q8H PRN PRN PRN Reason: moderate to severe anxiety Heparin Sodium (Porcine) (Heparin Na) 5,000 unit SC Q12 [facility] Last Admin: 04/04/20 10:36 Dose: 5,000 unit Documented by: Hydromorphone HCl (Dilaudid Tablet) 4 mg PO TID [facility] Last Admin: 04/04/20 05:50 Dose: 4 mg Documented by: Hydroxyzine Pamoate (Vistaril Pamoate Capsule) 50 mg PO Q6H PRN PRN PRN Reason: mild anxiety Last Admin: 04/03/20 14:41 Dose: 50 mg Documented by: Sodium Chloride () 1,000 mls @ 175 mls/hr IV .[id number] [facility] Last Admin: 04/04/20 07:58 Dose: Not Given Documented by: Sodium Chloride () 250 mls @ 15 mls/hr IV .[id number] PRN PRN Reason: Saline Flush Sodium Chloride () 250 mls @ 15 mls/hr IV .[id number] PRN PRN Reason: Additional IVPB Infusion Loperamide HCl (Imodium) 2 mg PO Q4H PRN PRN PRN Reason: LOOSE STOOLS Lorazepam (Ativan) 0.25 mg PO Q12H PRN [facility] Methocarbamol (Methocarbamol) 1,500 mg PO Q6H PRN PRN PRN Reason: MUSCLE SPASM Nystatin (Mycostatin Powder) 1 applic TOPICAL TID [facility]; Protocol Last Admin: 04/04/20 05:48 Dose: Not Given Documented by: Ondansetron HCl (Zofran) 4 mg IV Q6H PRN PRN PRN Reason: NAUSEA/VOMITING Last Admin: 04/03/20 09:25 Dose: 4 mg Documented by: Ondansetron HCl (Zofran) 8 mg PO Q8H PRN PRN PRN Reason: NAUSEA Last Admin: 04/04/20 10:35 Dose: 8 mg Documented by: Pantoprazole Sodium (Protonix) 40 mg PO DAILY [facility] Last Admin: 04/04/20 09:17 Dose: 40 mg Documented by: Pravastatin Sodium (Pravachol) 20 mg PO QHS [facility] Last Admin: 04/03/20 22:33 Dose: 20 mg Documented by: Promethazine HCl (Phenergan Tablet) 12.5 mg PO Q4H PRN PRN PRN Reason: NAUSEA/VOMITING Last Admin: 04/04/20 13:02 Dose: 12.5 mg Documented by: Sodium Chloride () 10 - 40 ml IV UD PRN PRN Reason: SALINE FLUSH Last Admin: 04/03/20 09:26 Dose: 10 ml Documented by: Trazodone HCl (Desyrel) 100 mg PO QHS PRN PRN PRN Reason: INSOMNIA Inpatient E&M: 16751 Disch Hosp
[2020-04-04] MEDS: proMETHazine 25 MG/ML Syringe 12.5 MG IM (15:28)
[2020-04-04] MEDS: Nystatin Powder 15gm Bottle 1 APPLIC TOPICAL (15:31)
--- NOTE | 2020-04-04 15:33 | PHA.DC.MR ---
Pharmacy Service has performed discharge medication reconciliation for this patient. The patient's discharge medication list was reviewed for discrepancies and discrepancies were resolved. Home Medications Aspirin [Aspirin, Baby] 81 mg PO DAILY@0800 05/29/15 Carvedilol [Coreg (Beta Ana)] 3.125 mg PO BID 05/29/15 Famotidine [Pepcid] 20 mg PO BID 05/29/15 Fluticasone/Salmeterol [Advair 250/50 Mcg Diskus] 1 puff INHALATION BID 05/29/15 Lisinopril [Zestril] 5 mg PO DAILY 05/29/15 Lorazepam [Ativan] 1 mg PO BID 05/29/15 Ondansetron [Zofran Odt] 4 mg PO Q8H PRN PRN 05/29/15 Gabapentin [Neurontin] 400 mg PO QHS 11/02/16 Hydromorphone HCl [Dilaudid] 12 mg PO QHS 11/02/16 Clopidogrel Bisulfate [Plavix] 75 mg PO DAILY 10/16/17 Hydromorphone HCl [Dilaudid] 8 mg PO BID PRN 10/16/17 Ezetimibe [Zetia] 10 mg PO DAILY 04/02/20 Pantoprazole Sodium [Protonix] 40 mg PO DAILY 04/02/20 Pravastatin [Pravachol] 20 mg PO QHS 04/02/20 Cefdinir [Omnicef [equiv]] 300 mg PO Q12 #10 cap 04/04/20
--- NOTE | 2020-04-05 14:08 | CASEMGMT ---
DANITA DAVIS DC PHONE CALL DC DATE: 04/04/2020 DC DISPOSITION: Home DC DIAGNOSIS: FARZANA, LACE/STRATA: 04/28 F/U APPTS MADE PRIOR TO DC: yes PRESCRIPTIONS ACQUIRED BY PT: yes Intro role of CM to patient via phone. Patient states she has a headache, so conversation kept abbreviated. Per patient she does not have questions re: prescriptions, follow up or instructions. Reviewed follow up appointments with patient and she will make own pain management appointment. No further questions, and no care improvement suggestions were noted. Shyla LOBO RN ACM
== END 2020-04-04 16:27 | disposition home or self-care (01) | DRG 690 ==
LOC: ED 17:14 → PCU 17:40
PROVIDERS: Physician Assistant; Admitting Provider Internal Medicine; Emergency Provider Emergency Medicine; PCP Family Medicine; Visit Provider Internal Medicine
DX: N39.0 Urinary tract infection, site not specified (principal); N17.9 Acute kidney failure, unspecified; F11.20 Opioid dependence, uncomplicated; T40.2X1A Poisoning by other opioids, accidental (unintentional), initial encounter; E86.0 Dehydration; T36.8X5A Adverse effect of other systemic antibiotics, initial encounter; I25.10 Atherosclerotic heart disease of native coronary artery without angina pectoris; I10 Essential (primary) hypertension; G89.29 Other chronic pain; R10.31 Right lower quadrant pain; K21.9 Gastro-esophageal reflux disease without esophagitis; F17.210 Nicotine dependence, cigarettes, uncomplicated; Y92.009 Unspecified place in unspecified non-institutional (private) residence as the place of occurrence of the external cause; Z79.02 Long term (current) use of antithrombotics/antiplatelets; Z79.82 Long term (current) use of aspirin; Z79.1 Long term (current) use of non-steroidal anti-inflammatories (NSAID); Z79.899 Other long term (current) drug therapy; Z87.440 Personal history of urinary (tract) infections; Z95.0 Presence of cardiac pacemaker
CPT/HCPCS: 36415; 36600; 70450; 71045; 76770; 80048; 80053; 80307; 81001; 82803; 83605; 85025; 85610; 85730; 87040; 87086; 93005; 97802; 99285; 99406; J7030; A4216; J2405

== ENCOUNTER 2020-08-13 15:51 | Observation (INO) | payer MEDICARE, MEDICAID, SELFPAY ==
[2020-04-02 17:47] VITALS: BMI 38.7
[2020-08-13] VITALS (8 sets, daily range): BP systolic 91–152; BP diastolic 77–96; PULSE 95–117; RESP 18–40; TEMP 36.6–37.6; O2SAT 88–100; BMI 38.9; BMI 35.6
--- NOTE | 2020-08-13 16:15 | EKG12_ITS ---
Test Reason : Blood Pressure : / mmHG Vent. Rate : 097 BPM Atrial Rate : 097 BPM P-R Int : 192 ms QRS Dur : 116 ms QT Int : 380 ms P-R-T Axes : 039 227 040 degrees QTc Int : 482 ms Atrial-sensed ventricular-paced rhythm Abnormal ECG Confirmed by LIZ CAMPBELL, TAMI ([id number]), editor managing director JOCELINE CLEMENT ([id number]) on 08/15/2020 7:55:47 AM Referred By: JOBY Confirmed By:TAMI HILL MD
--- NOTE | 2020-08-13 16:19 | ED.DCSUM_ITS ---
History of Present Illness Chief Complaint: Shortness of Breath Informant: Patient Onset: Today Current Severity: Moderate Maximum Severity: Moderate Narrative: Patient presents secondary to shortness of breath and cough that started today. She denies fever. She states cough is nonproductive. Per nursing report EMS states his O2 sats were in the high 80s on room air and she was placed on nasal cannula for transport. Patient does have a history of COPD but does not use home oxygen. She continues to smoke. She denies any exposure to Covid. - Past Medical History (1) Anxiety and depression Status: Chronic (2) Coronary artery disease Status: Chronic (3) High cholesterol Status: Chronic (4) Myocardial infarction Status: Chronic (5) COPD (chronic obstructive pulmonary disease) Status: Chronic (6) GERD (gastroesophageal reflux disease) Status: Chronic (7) History of hypertension Status: Chronic Past Medical History - Allergies and Home Meds Allergies/Adverse Reactions: Allergies acetaminophen [From Darvocet-N] Allergy (Verified 08/13/20 15:53) Unknown amoxicillin Allergy (Verified 08/13/20 15:53) Unknown codeine Allergy (Verified 08/13/20 15:53) Unknown fentanyl Allergy (Verified 08/13/20 15:53) Unknown hydrocodone bitartrate [From Vicodin] Allergy (Verified 08/13/20 15:53) Unknown Iodinated Contrast Media [Iodinated Contrast Media - IV Dye] Allergy (Verified 08/13/20 15:53) Unknown meperidine [From Demerol] Allergy (Verified 08/13/20 15:53) Unknown morphine Allergy (Verified 08/13/20 15:53) Unknown oxycodone HCl [From Percocet] Allergy (Verified 08/13/20 15:53) Unknown Penicillins [PCN] Allergy (Verified 08/13/20 15:53) Hives promethazine HCl [From Phenergan] Allergy (Verified 08/13/20 15:53) Unknown propoxyphene napsylate [From Darvocet-N] Allergy (Verified 08/13/20 15:53) Unknown MYCINS Allergy (Uncoded 08/13/20 15:53) Unknown Primary Care Physician: Elizabeth Persaud DO [Primary Care Provider] - Prior records reviewed: Yes Surgical History: - - Neck mass left side Smoking Status: Current every day smoker - Family History Maternal Family History: Reports: No pertinent history Paternal Family History: Reports: No pertinent history Review of Systems General: Denies: Fever Eyes: Denies: Visual changes - bilaterally ENT: Denies: Bilateral ear pain Cardiovascular: Denies: Chest pain Respiratory: Reports: Dyspnea, Cough. Denies: Sputum Gastrointestinal: Reports: Diarrhea. Denies: Abdominal pain, Nausea, Vomiting Genitourinary: Denies: Dysuria Musculoskeletal: Reports: Myalgias. Denies: Swelling, Extremity Pain Skin: Denies: Rash Neurological: Denies: Headache Hematologic: Denies: Easy bruising, Easy bleeding Allergy: Denies: Uticaria Physical Exam Vital Signs/Narrative: Vital Signs Temp Pulse Resp BP Pulse Ox 08/13/20 16:00 98.9 F 95 22 H 148/94 H 99 08/13/20 15:55 98.9 F 95 20 H 148/95 H 88 Inital Vital Signs reviewed: Yes General: Well nourished, Well developed Head: Normocephalic ENT: Moist mucous membranes Neck: Supple Cardiovascular: Regular rate, Regular rhythm Respiratory: No distress, Diminished, - - Diminished lung sounds with mild expiratory wheezes. Tachypnea noted. Abdomen: Soft, Nontender Skin: Normal color Neurological: Alert, Oriented x3 Psychological: Normal affect Diagnostic/Tx/Re-eval Chest X-Ray - ED: 1 View, Read by ED Physician, No Infiltrates Impressions Chest X-Ray 08/13/20 16:50 IMPRESSION: No active disease. Electronically Signed: Severiano Ingram MD at 17:09 EST Tel , Service support , 08/13/20 16:50 Chest 1 View (Portable) [RAD] Stat 08/13/20 16:20 Mucosa - Nose SARS-CoV-2 Antigen (Rapid) - Final Laboratory Results 08/13/20 08/13/20 08/13/20 16:28 16:28 16:28 WBC 12.8 H RBC 5.05 Hgb 14.1 Hct 42.3 MCV 83.8 MCH 27.9 MCHC 33.3 RDW Std Deviation 45.1 H RDW Coeff of Sal 14.9 H Plt Count 281 MPV 9.2 Immature Gran % (Auto) 0.600 Neut % (Auto) 79.5 H Lymph % (Auto) 12.4 L [place] % (Auto) 6.0 Eos % (Auto) 1.3 Baso % (Auto) 0.2 Absolute Neuts (auto) 10.2 H Absolute Lymphs (auto) 1.59 Nucleated RBC % 0 D-Dimer Quant (PE/DVT) Sodium 137 Potassium 3.8 Chloride 104 Carbon Dioxide 30.0 Anion Gap 3 L BUN 17 Creatinine 1.08 H Estim Creat Clear Calc 36.31 Est GFR (MDRD) Af Amer 65 Est GFR (MDRD) Non-Af 54 L BUN/Creatinine Ratio 15.7 Glucose 94 Lactic Acid 0.8 Calcium 9.6 Total Bilirubin 0.80 Direct Bilirubin 0.15 AST 16 ALT 24 Alkaline Phosphatase 158 H Troponin I < 0.015 Total Protein 7.9 Albumin 3.7 Globulin 4.2 Procalcitonin 08/13/20 08/13/20 16:28 16:28 WBC RBC Hgb Hct MCV MCH MCHC RDW Std Deviation RDW Coeff of Sal Plt Count MPV Immature Gran % (Auto) Neut % (Auto) Lymph % (Auto) [place] % (Auto) Eos % (Auto) Baso % (Auto) Absolute Neuts (auto) Absolute Lymphs (auto) Nucleated RBC % D-Dimer Quant (PE/DVT) 1.09 H* Sodium Potassium Chloride Carbon Dioxide Anion Gap BUN Creatinine Estim Creat Clear Calc Est GFR (MDRD) Af Amer Est GFR (MDRD) Non-Af BUN/Creatinine Ratio Glucose Lactic Acid Calcium Total Bilirubin Direct Bilirubin AST ALT Alkaline Phosphatase Troponin I Total Protein Albumin Globulin Procalcitonin < 0.04 - EKG Initial EKG Interpretation: - - Paced rhythm at 97 bpm. No acute ischemia. - Medical Decision Making Patient was given DuoNeb followed by 2 albuterol treatments. This did increase her heart rate. On repeat evaluation patient states she does feel somewhat jittery after the albuterol treatments. She remains tachypneic with respiratory rate around 30. Blood work is reviewed. D-dimer is elevated, however patient states that whenever she is given IV contrast for CAT scan images she passes out. In light of this she will be given a dose of Lovenox and admitted for further treatment. She will likely require a VQ scan tomorrow. Rapid Covid test is negative, however patient is on day one of symptoms and it may just be too early to test positive. ED Disposition - Plan for ED Patient: Disposition: Acute Care Hospital [facility] Diagnosis: COPD exacerbation Referrals: Elizabeth Persaud DO [Primary Care Provider] -
--- NOTE | 2020-08-13 16:50 | RAD_ITS ---
STUDY: X-RAY CHEST REASON FOR EXAM: Female, 65 years old. increased sob, fever, cough starting today TECHNIQUE: Single AP portable view of the chest. COMPARISON: 04/02/2020 FINDINGS: Left subclavian triple lead AICD which is unchanged. The lungs are clear and expanded. There is no demonstrated pleural abnormality. Normal size heart. Normal mediastinum and terry. Normal visualized pulmonary arteries. Normal visualized aortic arch and descending thoracic aorta. Normal visualized thoracic spine. Normal visualized ribs, clavicles, and shoulders. There is no demonstrated abnormality of the visualized soft tissue structures of the upper abdomen. RAD/Chest 1 View (Portable) IMPRESSION: No active disease. Electronically Signed: Severiano Ingram MD at 17:09 EST Tel , Service support ,
[2020-08-13 17:04] LABS: Absolute Lymphocyte Count 1.59 X10^3/uL (0.83-4.51); Absolute Neutrophil Count 10.2 X10^3/uL (2.0-7.7); Basophil# 0.02 X10^3/uL; Basophil% 0.2 % (0-1); Eosinophil# 0.16 X10^3/uL; Eosinophils% 1.3 % (0-5); Hematocrit 42.3 % (37-47); Hemoglobin 14.1 g/dL (12.0-15.0); Lymphocyte # 1.59 X10^3/ul (4.0); Lymphocyte % 12.4 % (19-41); Mean Corp Hgb Conc 33.3 g/dL (32-36); Mean Corpuscular Hgb 27.9 pg (27.0-32.0); Mean Corpuscular Volume 83.8 fL (81-99); Mean Platelet Vol. 9.2 fl (6.2-12.0); Monocyte# 0.77 X10^3/uL; NRBC Flagged by Analyzer 0 % (0-5); Neutrophil # 10.16 X10^3/uL (2.7-7.7); Neutrophil % 79.5 % (47-70); Platelet Count 281 K/mm3 (150-450); RBC Distribution Width CV 14.9 % (11.6-14.6); RBC Distribution Width SD 45.1 fl (35.1-43.9); Red Blood Count 5.05 M/mm3 (4.2-5.4); White Blood Count 12.8 K/mm3 (4.4-11.0)
[2020-08-13 17:24] LABS: AST(SGOT) 16 U/L (15-37); Alanine Aminotransfer ALT/SGPT 24 U/L (13-56); Albumin, Serum 3.7 g/dL (3.2-5.0); Alkaline Phosphatase 158 U/L (45-117); Anion Gap 3 (5-15); BUN 17 mg/dL (7-18); BUN/Creat Ratio 15.7 RATIO (10-20); Bilirubin, Direct 0.15 mg/dL (0.00-0.30); Calcium,Total 9.6 mg/dL (8.5-10.1); Chloride 104 mmol/L (98-107); Creatinine, Serum 1.08 mg/dL (0.55-1.02); EST Glomerular Filtration Rate 54 mL/min (>60); Est Glom Filt Rate - Afr Amer 65 mL/min (>60); Estimated Creatinine Clearance 36.31 ml/min; Globulin 4.2 g/dL (2.2-4.2); Glucose 94 mg/dL (74-106); Potassium 3.8 mmol/L (3.5-5.1); Protein, Total 7.9 g/dL (6.4-8.2); Sodium Level 137 mmol/L (136-145)
[2020-08-13] MEDS: Albuterol 2.5 MG/3 ML VIAL.NEB. INHALATION ×2 (17:26)
[2020-08-13] MEDS: Ipratropium/Albuterol Sulfate 3 ML AMPUL.NEB INHALATION (17:26)
[2020-08-13 17:38] LABS: Lactic Acid 0.8 mmol/L (0.4-1.9)
[2020-08-13 17:57] LABS: Procalcitonin < 0.04 ng/mL (0.00-0.09)
[2020-08-13 18:05] LABS: D-Dimer Quantitative (DVT/PE) 1.09 FEU/ug/m (0.27-0.49)
[2020-08-13] MEDS: MethylPREDNISolone 125 MG/2 ML Vial 80 MG IV (18:31)
[2020-08-13] MEDS: Ondansetron 4 MG/2 ML Vial IV (18:50)
[2020-08-13] MEDS: Enoxaparin 100 MG/ML Syringe 90 MG SC ×2 (18:50→21:20)
--- NOTE | 2020-08-13 19:10 | HP.PCM_ITS ---
Problem List (1) Anxiety and depression Status: Chronic (2) COPD (chronic obstructive pulmonary disease) Status: Chronic (3) Hypoxia Status: Acute History of Present Illness Date of Admission: 08/13/20 Chief Complaint: Shortness of breath?1 day The patient is a 65 year old F with past medical history of COPD, not on oxygen, chronic nicotine dependence, CAD status post stents, status post defibrillator, history of polysubstance use who comes in with 1 day history of cough, shortness of breath, chills and having low-grade fevers as well as generalized body aches. Denied any sick contacts. She denies any loss of smell or taste. She denied any chest pain no dizziness or palpitation. Vitals in the ED showed temperature of 98.9F, heart rate 95, blood pressure 148/ 95, respiratory rate was 20, SPO2 was 88% on room air improved to 98% on 3 L. WBC count was 12.8, hemoglobin 14.1, platelet count 281, D-dimer 1.09, sodium is 137, potassium 3.8, chloride 104, bicarbonate 30, BUN 17, creatinine 1.08, lactic acid 0.8, LFTs unremarkable, BNpep pending. COVID-19 rapid antigen test is negative. COVID-19 PCR is pending. Admitting chest x-ray shows no acute cardiopulmonary process. Past Medical History Past Medical History (Chronic Problems): Chronic Problems History of hypertension (Chronic) Anxiety and depression (Chronic) Coronary artery disease (Chronic) High cholesterol (Chronic) Myocardial infarction (Chronic) COPD (chronic obstructive pulmonary disease) (Chronic) GERD (gastroesophageal reflux disease) (Chronic) COPD exacerbation (Chronic) Allergies acetaminophen [From Darvocet-N] Allergy (Verified 08/13/20 15:53) Unknown amoxicillin Allergy (Verified 08/13/20 15:53) Unknown codeine Allergy (Verified 08/13/20 15:53) Unknown fentanyl Allergy (Verified 08/13/20 15:53) Unknown hydrocodone bitartrate [From Vicodin] Allergy (Verified 08/13/20 15:53) Unknown Iodinated Contrast Media [Iodinated Contrast Media - IV Dye] Allergy (Verified 08/13/20 15:53) Unknown meperidine [From Demerol] Allergy (Verified 08/13/20 15:53) Unknown morphine Allergy (Verified 08/13/20 15:53) Unknown oxycodone HCl [From Percocet] Allergy (Verified 08/13/20 15:53) Unknown Penicillins [PCN] Allergy (Verified 08/13/20 15:53) Hives promethazine HCl [From Phenergan] Allergy (Verified 08/13/20 15:53) Unknown propoxyphene napsylate [From Darvocet-N] Allergy (Verified 08/13/20 15:53) Unknown MYCINS Allergy (Uncoded 08/13/20 15:53) Unknown Home Medications: Ambulatory Orders Medication Instructions Recorded Aspirin [Aspirin, Baby] 81 mg PO DAILY@0800 05/29/15 Carvedilol [Coreg (Beta Ana)] 3.125 mg PO BID 05/29/15 Famotidine [Pepcid] 20 mg PO BID 05/29/15 Fluticasone/Salmeterol [Advair 1 puff INHALATION BID PRN 05/29/15 250/50 Mcg Diskus] Lisinopril [Zestril] 10 mg PO DAILY 05/29/15 Lorazepam [Ativan] 1 mg PO BID 05/29/15 Ondansetron [Zofran Odt] 4 mg PO Q8H PRN PRN 05/29/15 Gabapentin [Neurontin] 400 mg PO BID 11/02/16 Clopidogrel Bisulfate [Plavix] 75 mg PO DAILY 10/16/17 Ezetimibe [Zetia] 10 mg PO DAILY 04/02/20 Pravastatin [Pravachol] 20 mg PO QHS 04/02/20 Omeprazole 40 mg PO DAILY 08/13/20 Surgical History: cholecystectomy, hysterectomy, tonsillectomy, - - Neck mass left side surgery, s/p defibrillator, s/p stents Psychiatric History: No pertinent psych hx MANAGER TRANSFER History: No pertinent MANAGER TRANSFER history Smoking Status: Current every day smoker Tobacco Use: Cigarettes Alcohol: None Drugs: None - *Family History Maternal History Items: Heart Disease Paternal History Items: Heart Disease Review of Systems Constitutional: Reports: Anorexia, Chills, Night Sweats, Malaise, Weakness, Fatigue. Denies: Fever, Weight Change Eyes: Denies: Blurred vision, Cataracts, Conjunctivae Inflammation, Pain, Redness HEENT: Denies: Difficulty Hearing, Difficulty Swallowing, Head Aches, Hearing Changes, Sinus Congestion, Sinus Drainage, Sore Throat Cardiovascular: Denies: Chest Pain, Claudication, Orthopnea, Palpitations, Paroxysmal Noc. Dyspnea Respiratory: Reports: Cough, Shortness of Breath, Shortness of breath at rest, Shortness of breath upon exertion, Sputum production Gastrointestinal: Denies: Abdominal Pain, Constipation, Hematemesis, Hematochezia, Nausea, Vomiting Genitourinary: Denies: Dysuria, Incontinence, Nocturia Musculoskeletal: Denies: Joint Pain, Joint stiffness, Joint swelling, Joint Tenderness Skin: Denies: Rash, Wounds Neurological: Denies: Difficulty swallowing, Focal weakness, Numbness, Tingling Psychiatric: Denies: Anxiety, Depression, Homicidal Ideations, Suicidal Ideations Hematologic/ Lymphatic: Denies: Easy Bruising, Easy Bleeding VTE Information - Inpt Only VTE Present on Admission: No VTE Pharm Prophylaxis ordered?: Yes Patient Problems: Active and Suspected Problems Hypoxia (Acute) - Physical Exam Vitals/I&O's: Vital Signs Temp Pulse Resp BP Pulse Ox 99.7 F H 117 H 40 H 152/96 H 98 08/13/20 18:55 08/13/20 18:55 08/13/20 18:55 08/13/20 18:55 08/13/20 18:55 Oxygen Flow Rate (L/min) 3 Oxygen Delivery Method Nasal Cannula Weight: 90.4 kg Body Mass Index (BMI) 38.9 General: Alert, Oriented x3, Cooperative, No apparent distress, - - On 3 L of oxygen HEENT: Atraumatic, PERRLA, EOMI, Normocephalic Oral: Moist Mucosa Neck: Supple Lungs: Normal air movement, Diminished Cardiovascular: Regular rate, Regular Rhythm, Normal S1, Normal S2, No murmurs Abdomen: Bowel Sounds Present, Soft, Non Tender, Non-Distended, No Hepato- splenomegaly Extremities: No edema Skin: No rashes, No breakdown Musculoskeletal: No Tenderness to Palpation of Joints or Extremities Neurological: Cranial nerves II-XII grossly intact Psych/Mental Status: Normal Affect, Appropriate Microbiology Past 72 Hours 08/13/20 16:20 Mucosa - Nose SARS-CoV-2 Antigen (Rapid) - Final Laboratory Results 08/13/20 16:28: WBC 12.8 H, RBC 5.05, Hgb 14.1, Hct 42.3, MCV 83.8, MCH 27.9, MCHC 33.3, RDW Std Deviation 45.1 H, RDW Coeff of Sal 14.9 H, Plt Count 281, MPV 9.2, Immature Gran % (Auto) 0.600, Neut % (Auto) 79.5 H, Lymph % (Auto) 12.4 L, [place] % (Auto) 6.0, Eos % (Auto) 1.3, Baso % (Auto) 0.2, Absolute Neuts (auto) 10.2 H, Absolute Lymphs (auto) 1.59, Nucleated RBC % 0 08/13/20 16:28: Sodium 137, Potassium 3.8, Chloride 104, Carbon Dioxide 30.0, Anion Gap 3 L, BUN 17, Creatinine 1.08 H, Estim Creat Clear Calc 36.31, Est GFR (MDRD) Af Amer 65, Est GFR (MDRD) Non-Af 54 L, BUN/Creatinine Ratio 15.7, Glucose 94, Calcium 9.6, Total Bilirubin 0.80, Direct Bilirubin 0.15, AST 16, ALT 24, Alkaline Phosphatase 158 H, Troponin I < 0.015, Total Protein 7.9, Albumin 3.7, Globulin 4.2 08/13/20 16:28: Lactic Acid 0.8 08/13/20 16:28: D-Dimer Quant (PE/DVT) 1.09 H* 08/13/20 16:28: Procalcitonin < 0.04 Assessment/Plan All Active Problems Head injury (Acute) Ataxia (Acute) Fall (Acute) Balance problem (Acute) Asymptomatic coronary heart disease (Acute) Dysrhythmia, cardiac (Acute) Neck mass (Acute) Acute kidney injury (Acute) Altered mental status (Acute) SIRS (systemic inflammatory response syndrome) (Acute) Opiate overdose (Acute) Sepsis (Acute) UTI (urinary tract infection) (Acute) DDD (degenerative disc disease) (Acute) Acute encephalopathy (Acute) Hypoxia (Acute) 1. Acute hypoxic respiratory insufficiency likely secondary to acute COPD exacerbation Patient was admitted with creatinine sats of 88%, improved to 98% on 3 L We will continue to wean off for SPO2 more than 92% Encourage use of incentive spirometer 2. Probable Acute COPD exacerbation, patient's initial COVID-19 rapid antigen was negative COVID-19 PCR is pending; We will check respiratory panel Continue on Decadron, breathing treatments 3. Elevated D-dimer, D-dimer 1.09, patient has severe allergy to IV contrast Started on therapeutic Lovenox, will continue same 4. Chronic nicotine dependence, advised to quit, continue replacement therapy 5. CAD status post stents, continue on aspirin, carvedilol, Plavix, Zetia, pravastatin 6. Hypertension, controlled, on lisinopril, continue with home regimen 7. Anxiety disorder, continue Ativan 8. DVT prophylaxis?on therapeutic Lovenox Inpatient E&M: 02533 Init Hosp L3
--- NOTE | 2020-08-13 20:36 | NURSING ---
PANDEMIC DOCUMENTATION INITIATED: Date: 08/13/20 Time: 2032 Initialized on 08/13/20 203 - END OF NOTE
[2020-08-13 20:45] LABS: BNP,B-Type NATRIURETIC PEPTIDE 15.6 pg/mL (0-100)
[2020-08-13] MEDS: LORazepam 0.5 MG Tablet 1 MG PO (21:16)
[2020-08-13] MEDS: Pravastatin 20 MG Tablet PO (21:17)
[2020-08-13] MEDS: Famotidine 20 MG Tablet PO (21:17)
[2020-08-13] MEDS: Gabapentin 400 MG Capsule PO (21:17)
[2020-08-14] VITALS (8 sets, daily range): BP systolic 107–138; BP diastolic 64–86; PULSE 70–108; RESP 18; TEMP 36.6; O2SAT 95–99
[2020-08-14 05:24] LABS: Absolute Lymphocyte Count 1.04 X10^3/uL (0.83-4.51); Absolute Neutrophil Count 13.4 X10^3/uL (2.0-7.7); Basophil# 0.02 X10^3/uL; Basophil% 0.1 % (0-1); Hemoglobin 13.4 g/dL (12.0-15.0); Lymphocyte # 1.04 X10^3/ul (4.0); Lymphocyte % 7.1 % (19-41); Mean Corp Hgb Conc 32.7 g/dL (32-36); Mean Corpuscular Hgb 27.6 pg (27.0-32.0); Mean Corpuscular Volume 84.5 fL (81-99); Mean Platelet Vol. 9.6 fl (6.2-12.0); Monocyte# 0.17 X10^3/uL; Monocyte% 1.2 % (0-10); NRBC Flagged by Analyzer 0 % (0-5); Neutrophil # 13.42 X10^3/uL (2.7-7.7); Neutrophil % 91.1 % (47-70); Platelet Count 263 K/mm3 (150-450); RBC Distribution Width CV 15.1 % (11.6-14.6); RBC Distribution Width SD 46.7 fl (35.1-43.9); Red Blood Count 4.85 M/mm3 (4.2-5.4); White Blood Count 14.7 K/mm3 (4.4-11.0)
[2020-08-14 05:45] LABS: ALB/GLOB Ratio 0.8 RATIO (0.9-2.4); AST(SGOT) 14 U/L (15-37); Alanine Aminotransfer ALT/SGPT 23 U/L (13-56); Albumin, Serum 3.3 g/dL (3.2-5.0); Alkaline Phosphatase 147 U/L (45-117); Anion Gap 6 (5-15); BUN 17 mg/dL (7-18); Calcium,Total 9.2 mg/dL (8.5-10.1); Chloride 102 mmol/L (98-107); Creatinine, Serum 1.06 mg/dL (0.55-1.02); EST Glomerular Filtration Rate 55 mL/min (>60); Est Glom Filt Rate - Afr Amer 67 mL/min (>60); Estimated Creatinine Clearance 36.99 ml/min; Globulin 4.4 g/dL (2.2-4.2); Glucose 196 mg/dL (74-106); Protein, Total 7.7 g/dL (6.4-8.2); Sodium Level 134 mmol/L (136-145)
[2020-08-14] MEDS: Lisinopril 5 MG Tablet PO (09:32)
[2020-08-14] MEDS: LORazepam 0.5 MG Tablet 1 MG PO (09:32)
[2020-08-14] MEDS: Carvedilol 3.125 MG TABLET PO (09:33)
[2020-08-14] MEDS: Clopidogrel Bisulfate 75 MG Tablet PO (09:33)
[2020-08-14] MEDS: Pantoprazole Sodium 40 MG Tablet PO (09:33)
[2020-08-14] MEDS: Famotidine 20 MG Tablet PO (09:33)
[2020-08-14] MEDS: Ezetimibe 10 MG Tablet PO (09:33)
[2020-08-14] MEDS: Aspirin 81 MG TAB.CHEW PO (09:33)
[2020-08-14] MEDS: dexAMETHasone 4 MG Tablet 6 MG PO (09:34)
[2020-08-14] MEDS: Enoxaparin 100 MG/ML Syringe 90 MG SC (09:35)
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
--- NOTE | 2020-08-14 12:07 | CASEMGMT ---
RN CM Assessment Note Introduced role of CM to patient via phone. Demographics, PCP verified. The patient is awake and alert and able to participate in assessment. Patient states she lives with her boyfriend in an apartment. Pt is independent with ADL, but her boyfriend is able to assist if needed. No care needs identified @ this time. Diagnosis: suspected COVID-19 TEST 08/13/20 @ [facility]-negative PCP: Dr. Elizabeth Persaud Specialists: patient has case supervisor in [place] and @ [place]. Did not remember names Insurance: [employer] Advantage Preferred Pharmacy: [facility] Prescription Benefit: yes LNOK: Daughter Khalida Mares Living Arrangements: Lives in apartment with her boyfriend. No care needs per patient. 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 Boyfriend does cooking and dishes Tranportation: patient drives, she states her boyfriend does not have a license DME: wheelchair, cane, walker. 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 Patient is currently on 2L NC. May need oxygen testing prior to dc at rest and with ambulation. CM available for discharge planning coordination. Contact CM for any concerns/needs that may arise. Shyla LOBO RN ACM
--- NOTE | 2020-08-14 14:52 | PCM.DC ---
- Discharge Diagnoses Current Active Problems: Current Active and Chronic Problems History of hypertension (Chronic) Anxiety and depression (Chronic) Coronary artery disease (Chronic) High cholesterol (Chronic) Myocardial infarction (Chronic) COPD (chronic obstructive pulmonary disease) (Chronic) GERD (gastroesophageal reflux disease) (Chronic) COPD exacerbation (Chronic) Hypoxia (Acute) You will use the following diet at home:: Cardiac Your food should be the consistency of: Regular Your liquids should be the consistency of: Regular/Thin Discharge Activity: Return to Normal Activity Call your doctor if you observe: Fever of 101 or Higher, Shortness of breath, Dizziness, Fainting spells, Swelling in the ankles, Chest pain, Increased palpitations (irregular heartbeat) Allergies/Adverse Reactions: Allergies acetaminophen [From Darvocet-N] Allergy (Verified 08/13/20 15:53) Unknown amoxicillin Allergy (Verified 08/13/20 15:53) Unknown codeine Allergy (Verified 08/13/20 15:53) Unknown fentanyl Allergy (Verified 08/13/20 15:53) Unknown hydrocodone bitartrate [From Vicodin] Allergy (Verified 08/13/20 15:53) Unknown Iodinated Contrast Media [Iodinated Contrast Media - IV Dye] Allergy (Verified 08/13/20 15:53) Unknown meperidine [From Demerol] Allergy (Verified 08/13/20 15:53) Unknown morphine Allergy (Verified 08/13/20 15:53) Unknown oxycodone HCl [From Percocet] Allergy (Verified 08/13/20 15:53) Unknown Penicillins [PCN] Allergy (Verified 08/13/20 15:53) Hives promethazine HCl [From Phenergan] Allergy (Verified 08/13/20 15:53) Unknown propoxyphene napsylate [From Darvocet-N] Allergy (Verified 08/13/20 15:53) Unknown MYCINS Allergy (Uncoded 08/13/20 15:53) Unknown Medications to take at Discharge Aspirin [Aspirin, Baby] 81 mg PO DAILY@0800 05/29/15 Carvedilol [Coreg (Beta Ana)] 3.125 mg PO BID 05/29/15 Famotidine [Pepcid] 20 mg PO BID 05/29/15 Lisinopril [Zestril] 10 mg PO DAILY 05/29/15 Lorazepam [Ativan] 1 mg PO BID 05/29/15 Ondansetron [Zofran Odt] 4 mg PO Q8H PRN PRN 05/29/15 Gabapentin [Neurontin] 400 mg PO BID 11/02/16 Clopidogrel Bisulfate [Plavix] 75 mg PO DAILY 10/16/17 Ezetimibe [Zetia] 10 mg PO DAILY 04/02/20 Pravastatin [Pravachol] 20 mg PO QHS 04/02/20 Omeprazole 40 mg PO DAILY 08/13/20 Fluticasone/Salmeterol [Advair 250/50 Mcg Diskus] 1 puff INHALATION BID #0 08/14/20 Prednisone [Deltasone] 40 mg PO DAILY #14 tab 08/14/20 The following prescriptions were given: Prednisone [Deltasone] 40 mg PO DAILY #14 tab Transmission Status: Pending to [facility] Primary Care Physician: Elizabeth Persaud DO [Primary Care Provider] - Please follow up with your Primary Care Physician in: 3-5 days Test Results: Test results from this visit will be discussed in further detail at your follow-up appointment, if applicable.
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
== END 2020-08-14 15:50 | disposition home or self-care (01) | DRG 191 ==
LOC: ED 18:57 → MS2 08-14 07:07
PROVIDERS: Admitting Provider Internal Medicine; Emergency Provider Emergency Medicine; PCP Family Medicine; Visit Provider Family Medicine
DX: J44.1 Chronic obstructive pulmonary disease with (acute) exacerbation (principal); R09.02 Hypoxemia; I25.10 Atherosclerotic heart disease of native coronary artery without angina pectoris; I10 Essential (primary) hypertension; E78.5 Hyperlipidemia, unspecified; K21.9 Gastro-esophageal reflux disease without esophagitis; F32.9 Major depressive disorder, single episode, unspecified; F41.9 Anxiety disorder, unspecified; F17.210 Nicotine dependence, cigarettes, uncomplicated; R94.31 Abnormal electrocardiogram [ECG] [EKG]; Z20.822 Contact with and (suspected) exposure to COVID-19; Z91.041 Radiographic dye allergy status; Z79.02 Long term (current) use of antithrombotics/antiplatelets; Z79.82 Long term (current) use of aspirin; Z79.899 Other long term (current) drug therapy; I25.2 Old myocardial infarction; Z95.810 Presence of automatic (implantable) cardiac defibrillator; Z95.5 Presence of coronary angioplasty implant and graft; R06.02 Shortness of breath
CPT/HCPCS: 36415; 71045; 80048; 80053; 80076; 83605; 83880; 84145; 84484; 85025; 85379; 87040; 87426; 87633; 87635; 93005; 94640; 96372; 96374; 96375; 97802; 99218; 99251; 99285; 99406; A4216; G0378; G0463; J2405; U0002